=== PATIENT | male | born 1950 | race African-American/Black ===

== ENCOUNTER → 2016-03-08 | Outpatient (CLI) | payer OTHER, MEDICARE ==
[~2016-03-08] MED LIST: ACAR25TA OR; ALLO300T2 PO; ASPI81CH43; DIP005TP; ENAL20TA70; GLYB5TAB66; LINA5TAB OR; MULT-778 OR; SIMV-8; SIMV-8 OR; TRIA50TA2 OR; WARF5INJ
[2016-03-08 09:28] LABS: Urine RBC None Seen /hpf (0 - 3)
[2016-03-08 09:47] LABS: Basophils # (auto) 0.1 uL; Basophils % (auto) 1.2 % (0.0-2.0); Eosinophils # (auto) 0.2 uL; Eosinophils % (auto) 3.6 % (0.0-7.0); Hematocrit 45.8 % (41.0-53.0); Hemoglobin 14.7 g/dL (13.5-17.5); Lymphocytes # (auto) 1.4 uL; Mean Corpuscular Hemoglobin 27.1 pg (28.0-32.0); Mean Corpuscular Hgb Conc. 32.1 g/dL (32.0-36.0); Mean Corpuscular Volume 84.5 fL (80.0-100.0); Mean Platelet Volume 8.9 fL (7.4-10.4); Monocytes # (auto) 0.5 uL; Monocytes % (auto) 8.7 % (0.0-12.0); Neutrophils # (auto) 3.2 uL; Neutrophils % (auto) 60.5 % (37.0-80.0); Platelet Count (auto) 177 10^3/uL (140-450); White Blood Cell 5.4 10^3/uL (4.4-10.8)
[2016-03-08 09:59] LABS: Albumin 4.1 g/dL (3.4-5.0); BUN/Creatinine Ratio 17.4; Bilirubin, Total 1.5 mg/dL (0.2-1.0); Calcium 9.4 mg/dL (8.5-10.1)
[2016-03-08 10:00] LABS: Urine Bilirubin Negative (Negative); Urine Blood Negative /uL (Negative); Urine Color Yellow (Yellow); Urine Glucose Normal (Normal); Urine Ketone Negative (Negative); Urine Mucus FEW (None Seen); Urine Nitrite Negative (Negative); Urine Squamous Epithelial Cell FEW /hpf (<5); Urine Urobilinogen Normal (Negative); Urine pH 5.5 (5.0-8.0)
== END | disposition home or self-care (01) ==
LOC: LAB 08:26
PROVIDERS: ATTEND Internal Medicine
DX: N18.3 Chronic kidney disease, stage 3 (moderate) (principal); E78.4 Other hyperlipidemia; E11.21 Type 2 diabetes mellitus with diabetic nephropathy; I10 Essential (primary) hypertension
CPT/HCPCS: 36415; 80053; 80061; 81001; 82043; 83036; 85025; 85049; 86803

== ENCOUNTER → 2016-03-14 | Outpatient (CLI) | payer MEDICARE, OTHER | END | disposition home or self-care (01) | LOC: XYW 10:19 | PROVIDERS: ATTEND Internal Medicine | DX: I50.9 Heart failure, unspecified (principal); I48.2 Chronic atrial fibrillation; I34.2 Nonrheumatic mitral (valve) stenosis; I35.0 Nonrheumatic aortic (valve) stenosis; I07.1 Rheumatic tricuspid insufficiency; I31.3 Pericardial effusion (noninflammatory) | CPT/HCPCS: 93306 ==

== ENCOUNTER → 2016-06-15 | Outpatient (CLI) | payer MEDICARE, OTHER ==
[2016-06-15 12:46] LABS: Albumin 3.7 g/dL (3.4-5.0); BUN/Creatinine Ratio 15.8; Bilirubin, Total 1.6 mg/dL (0.2-1.0); Calcium 9.1 mg/dL (8.5-10.1); Potassium 4.6 mmol/L (3.5-5.1); Total Protein 7.7 g/dL (6.4-8.2); Uric Acid 3.8 mg/dL (3.5-7.2)
== END | disposition home or self-care (01) ==
LOC: LAB 10:07
DX: D64.9 Anemia, unspecified (principal); M10.00 Idiopathic gout, unspecified site; I10 Essential (primary) hypertension
CPT/HCPCS: 36415; 80053; 84550

== ENCOUNTER → 2016-07-04 | Outpatient (CLI) | payer MEDICARE, OTHER | END | disposition home or self-care (01) | LOC: XYW 08:22 | PROVIDERS: ATTEND Internal Medicine Cardiovascular Disease | DX: I08.1 Rheumatic disorders of both mitral and tricuspid valves (principal); I27.2 Other secondary pulmonary hypertension | CPT/HCPCS: 93306 ==

== ENCOUNTER → 2016-07-11 | Outpatient (CLI) | payer MEDICARE, OTHER ==
[2016-07-11 16:13] LABS: BUN/Creatinine Ratio 14.3; Calcium 8.4 mg/dL (8.5-10.1); Potassium 4.7 mmol/L (3.5-5.1)
[2016-07-11 16:39] LABS: B-Type Natriuretic Peptide 538.67 pg/mL (0-100); Temperature: 22.7 C (20.0-25.0)
== END | disposition home or self-care (01) ==
LOC: LAB 15:40
PROVIDERS: ATTEND Internal Medicine Cardiovascular Disease
DX: I42.0 Dilated cardiomyopathy (principal)
CPT/HCPCS: 36415; 80048; 83880

== ENCOUNTER 2016-09-02 14:32 | Inpatient (IN) | payer MEDICARE, OTHER ==
[~2016-09-02] VITALS: Ht 170.2 cm; Wt 104.8 kg
[~2016-09-02 14:32] MED LIST changes: -ACAR25TA OR; +ACAR50TA9 PO; -ALLO300T2 PO; +ASPI-231 PO; -ASPI81CH43; +CARV12.544 PO; +CIPR500T20 PO; +COLC1TAB3 PO; -DIP005TP; -ENAL20TA70; +ENAL20TA70 PO; +FEBU80TA PO; -GLYB5TAB66; +GLYB5TAB8 PO; +HYDR-4416 PO; -LINA5TAB OR; +LINA5TAB PO; -MULT-778 OR; +MULTLIQ36 PO; +PANT40T PO; -SIMV-8; -SIMV-8 OR; +SPIR25TA89 PO; -TRIA50TA2 OR; -WARF5INJ; +WARF5TAB71 PO; +[UNRECOGNIZED DRUG - CODE] PO
[2016-09-02 15:47] LABS: Basophils # (auto) 0 uL; Basophils % (auto) 0.3 % (0.0-2.0); CONDITION Y; Eosinophils # (auto) 0.1 uL; Eosinophils % (auto) 0.6 % (0.0-7.0); Hematocrit 39.2 % (41.0-53.0); Hemoglobin 13.1 g/dL (13.5-17.5); Lymphocytes # (auto) 0.8 uL; Lymphocytes % (auto) 8.5 % (10.0-50.0); Mean Corpuscular Hemoglobin 28.5 pg (28.0-32.0); Mean Corpuscular Hgb Conc. 33.3 g/dL (32.0-36.0); Mean Corpuscular Volume 85.4 fL (80.0-100.0); Mean Platelet Volume 9.3 fL (7.4-10.4); Monocytes # (auto) 0.5 uL; Monocytes % (auto) 4.8 % (0.0-12.0); Neutrophils # (auto) 8.5 uL; Neutrophils % (auto) 85.8 % (37.0-80.0); Platelet Count (auto) 254 10^3/uL (140-450); Red Cell Distribution Width 14.1 % (11.6-16.0); White Blood Cell 9.9 10^3/uL (4.4-10.8)
[2016-09-02 16:12] LABS: Albumin 3.5 g/dL (3.4-5.0); BUN/Creatinine Ratio 15.5; Bilirubin, Total 1.3 mg/dL (0.2-1.0); Calcium 8.9 mg/dL (8.5-10.1); Potassium 5.4 mmol/L (3.5-5.1); Total Protein 7.6 g/dL (6.4-8.2)
[2016-09-02 17:09] LABS: Urine RBC None Seen /hpf (0 - 3)
[2016-09-02] MEDS ORDERED: SODIUM CHLORIDE 0.9% 1,000 ML IVB ONE (17:10)
[2016-09-02 17:14] LABS: Urine Bilirubin Negative (Negative); Urine Blood Negative /uL (Negative); Urine Color Yellow (Yellow); Urine Glucose 3+ mg/dL (Normal); Urine Ketone TRACE (Negative); Urine Nitrite Negative (Negative); Urine Urobilinogen Normal (Negative); Urine pH 5.5 (5.0-8.0)
[2016-09-02] MEDS ORDERED: ONDANSETRON HCL 4 MG/2 ML VIAL IV ONE (17:15)
[2016-09-02 18:07] LABS: Magnesium 1.3 mg/dL (1.6-2.6)
[2016-09-02 18:14] LABS: INR 3.58 (0.9-1.15); Partial Thromboplastin Time 52.3 sec (22.64-33.71)
[2016-09-02 18:22] LABS: Prothrombin Time 39.5 sec (9.37-12.3)
[2016-09-02] MEDS: MAGNESIUM SULFATE 1GM/100ML 100 ML IV SCH ×2 (19:12→21:55)
[2016-09-02] MEDS ORDERED: ACETAMINOPHEN 325 MG TAB PO PRN (23:15)
[2016-09-02] MEDS ORDERED: DOCUSATE SOD 100 MG CAP PO ONE (23:15)
[2016-09-02] MEDS ORDERED: DEXTROSE (50%) 50ML SYRG IV PRN (23:15)
[2016-09-02] MEDS ORDERED: HYDROcodone-ACET 5/325MG TAB PO PRN (23:15)
[2016-09-02] MEDS ORDERED: ONDANSETRON HCL 4 MG/2 ML VIAL IV PRN (23:15)
[2016-09-02] MEDS ORDERED: TEMAZEPAM 15 MG CAP PO PRN (23:15)
[2016-09-02] MEDS ORDERED: PANTOPRAZOLE SODIUM 40 MG/10 ML VIAL IV ONE (23:15)
[2016-09-02] MEDS ORDERED: MORPHINE SULF INJ 2 MG/ML SYRINGE 1ML IV PRN (23:15)
[2016-09-02] MEDS ORDERED: SIMETHICONE 80 MG CHEWABLE TABLET PO ONE (23:15)
[2016-09-02] MEDS ORDERED: SIMETHICONE 80 MG CHEWABLE TABLET PO PRN (23:15)
[2016-09-02] MEDS: ACCU-CHEK COMFORT CURVE STRIP VI SCH (23:49)
[2016-09-02] MEDS: InsuLIN REG 1unit/0.01ml Soln (100units/ml) SC SCH (23:50)
[2016-09-03] VITALS (8 sets, daily range): BP systolic 114–166; BP diastolic 67–92
[2016-09-03] MEDS ORDERED: DIGO0.2570 PO (00:40)
[2016-09-03] MEDS ORDERED: CARVEDILOL 12.5 MG TAB PO ONE (03:15)
[2016-09-03] MEDS: SPIRONOLACTONE 25 MG TAB PO SCH ×2 (06:14→18:05)
[2016-09-03] MEDS: ACCU-CHEK COMFORT CURVE STRIP VI SCH ×3 (06:14→18:06)
[2016-09-03] MEDS: InsuLIN REG 1unit/0.01ml Soln (100units/ml) SC SCH ×3 (06:15→18:06)
[2016-09-03 06:29] LABS: Basophils # (auto) 0 uL; Basophils % (auto) 0.1 % (0.0-2.0); CONDITION Y; Eosinophils # (auto) 0.1 uL; Eosinophils % (auto) 0.7 % (0.0-7.0); Hematocrit 39.9 % (41.0-53.0); Hemoglobin 13.2 g/dL (13.5-17.5); Lymphocytes # (auto) 1.1 uL; Lymphocytes % (auto) 9.3 % (10.0-50.0); Mean Corpuscular Hemoglobin 28.8 pg (28.0-32.0); Mean Corpuscular Hgb Conc. 33.1 g/dL (32.0-36.0); Mean Corpuscular Volume 86.9 fL (80.0-100.0); Monocytes # (auto) 0.8 uL; Monocytes % (auto) 7.2 % (0.0-12.0); Neutrophils # (auto) 9.8 uL; Neutrophils % (auto) 82.7 % (37.0-80.0); Platelet Count (auto) 226 10^3/uL (140-450); Red Cell Distribution Width 14.5 % (11.6-16.0); White Blood Cell 11.8 10^3/uL (4.4-10.8)
[2016-09-03 06:54] LABS: Albumin 3.1 g/dL (3.4-5.0); BUN/Creatinine Ratio 13.6; Bilirubin, Total 1.2 mg/dL (0.2-1.0); Calcium 8.1 mg/dL (8.5-10.1); Potassium 5.4 mmol/L (3.5-5.1); Total Protein 7.2 g/dL (6.4-8.2)
[2016-09-03] MEDS ORDERED: glyBURIDE 5 MG TAB PO SCH (07:00)
[2016-09-03 08:04] LABS: Partial Thromboplastin Time 53.2 sec (22.64-33.71)
[2016-09-03 08:05] LABS: Prothrombin Time 51.7 sec (9.37-12.3)
[2016-09-03 08:08] LABS: INR 4.67 (0.9-1.15)
[2016-09-03] MEDS: DIGOXIN 0.25 MG TAB PO SCH (09:39)
[2016-09-03] MEDS: DOCUSATE SOD 100 MG CAP PO SCH ×2 (09:39→22:05)
[2016-09-03] MEDS: PANTOPRAZOLE SODIUM 40 MG/10 ML VIAL IV SCH (09:39)
[2016-09-03] MEDS: CARVEDILOL 12.5 MG TAB PO SCH ×2 (09:40→22:05)
[2016-09-03] MEDS: ENALAPRIL MALEATE 10 MG TAB PO SCH (09:41)
[2016-09-03] MEDS: SUCRALFATE 1 GM/10 ML ORAL SUSP PO SCH ×2 (18:04→22:04)
[2016-09-03] MEDS: SOD CHL 0.45% 1,000 ML IV SCH (18:05)
[2016-09-04 05:00] VITALS: BP 136/73
[2016-09-04] MEDS: SPIRONOLACTONE 25 MG TAB PO SCH ×2 (05:45→18:17)
[2016-09-04 06:10] LABS: Partial Thromboplastin Time 55.9 sec (22.64-33.71)
[2016-09-04 06:13] LABS: INR 4.96 (0.9-1.15)
[2016-09-04] MEDS: ACCU-CHEK COMFORT CURVE STRIP VI SCH ×4 (06:13→18:17)
[2016-09-04] MEDS: InsuLIN REG 1unit/0.01ml Soln (100units/ml) SC SCH ×4 (06:16→18:18)
[2016-09-04] MEDS: SOD CHL 0.45% 1,000 ML IV SCH ×2 (06:37→20:30)
[2016-09-04] MEDS: SUCRALFATE 1 GM/10 ML ORAL SUSP PO SCH ×4 (06:37→22:12)
[2016-09-04 08:00] VITALS: BP 135/70
[2016-09-04 09:11] LABS: Hepatitis B Surface Antibody Negative
[2016-09-04] MEDS: DIGOXIN 0.25 MG TAB PO SCH (09:37)
[2016-09-04] MEDS: PANTOPRAZOLE SODIUM 40 MG/10 ML VIAL IV SCH (09:37)
[2016-09-04] MEDS: CARVEDILOL 12.5 MG TAB PO SCH ×2 (09:38→22:13)
[2016-09-04] MEDS: ENALAPRIL MALEATE 10 MG TAB PO SCH (09:39)
[2016-09-04] MEDS: DOCUSATE SOD 100 MG CAP PO SCH ×2 (11:24→22:12)
[2016-09-04 12:00] VITALS: BP 112/65
[2016-09-04 17:13] VITALS: BP 127/63
[2016-09-04 22:08] VITALS: BP 124/66
[2016-09-05] MEDS: ACCU-CHEK COMFORT CURVE STRIP VI SCH ×4 (00:03→18:06)
[2016-09-05] MEDS: InsuLIN REG 1unit/0.01ml Soln (100units/ml) SC SCH ×4 (00:04→18:07)
[2016-09-05 05:18] VITALS: BP 125/67
[2016-09-05] MEDS: SPIRONOLACTONE 25 MG TAB PO SCH ×2 (05:32→18:06)
[2016-09-05 05:53] LABS: Partial Thromboplastin Time 42.7 sec (22.64-33.71)
[2016-09-05 05:59] LABS: Prothrombin Time 46.4 sec (9.37-12.3)
[2016-09-05 06:01] LABS: INR 4.2 (0.9-1.15)
[2016-09-05] MEDS: SUCRALFATE 1 GM/10 ML ORAL SUSP PO SCH ×4 (06:36→22:13)
[2016-09-05 09:04] VITALS: BP 136/63
[2016-09-05] MEDS: PANTOPRAZOLE SODIUM 40 MG/10 ML VIAL IV SCH (09:36)
[2016-09-05] MEDS: DOCUSATE SOD 100 MG CAP PO SCH ×2 (09:36→22:13)
[2016-09-05] MEDS: DIGOXIN 0.25 MG TAB PO SCH (09:37)
[2016-09-05] MEDS: CARVEDILOL 12.5 MG TAB PO SCH ×2 (09:37→22:13)
[2016-09-05] MEDS: ENALAPRIL MALEATE 10 MG TAB PO SCH (09:38)
[2016-09-05] MEDS: SOD CHL 0.45% 1,000 ML IV SCH (09:43)
[2016-09-05 13:00] VITALS: BP 115/60
[2016-09-05 17:00] VITALS: BP 120/70
[2016-09-05 19:35] LABS: B-Type Natriuretic Peptide 221.18 pg/mL (0-100)
[2016-09-05 20:00] LABS: Temperature: 23.5 C (20.0-25.0)
[2016-09-05 22:00] VITALS: BP 120/62
[2016-09-06] MEDS: ACCU-CHEK COMFORT CURVE STRIP VI SCH ×2 (00:04→06:15)
[2016-09-06] MEDS: InsuLIN REG 1unit/0.01ml Soln (100units/ml) SC SCH ×2 (00:16→06:00)
[2016-09-06] MEDS: SOD CHL 0.45% 1,000 ML IV SCH (04:32)
[2016-09-06 05:00] VITALS: BP 121/63
[2016-09-06] MEDS: SPIRONOLACTONE 25 MG TAB PO SCH (06:15)
[2016-09-06] MEDS: SUCRALFATE 1 GM/10 ML ORAL SUSP PO SCH (06:16)
[2016-09-06 06:42] LABS: INR 3.11 (0.9-1.15); Partial Thromboplastin Time 52.5 sec (22.64-33.71)
[2016-09-06 06:43] LABS: Prothrombin Time 34.3 sec (9.37-12.3)
[2016-09-06 09:35] VITALS: BP 122/74
[2016-09-06] MEDS: DOCUSATE SOD 100 MG CAP PO SCH (10:00)
[2016-09-06] MEDS: PANTOPRAZOLE SODIUM 40 MG/10 ML VIAL IV SCH (10:06)
[2016-09-06] MEDS: CARVEDILOL 12.5 MG TAB PO SCH (10:07)
[2016-09-06] MEDS: DIGOXIN 0.25 MG TAB PO SCH (10:07)
[2016-09-06] MEDS: ENALAPRIL MALEATE 10 MG TAB PO SCH (10:07)
[2016-09-06 11:30] VITALS: BP 122/74
[2016-09-06 12:30] VITALS: BP 135/70
== END 2016-09-06 12:50 | disposition home or self-care (01) | DRG 445 ==
LOC: ER 14:39 → OVERFLOW 14:40 → CENTRAL 23:33
PROVIDERS: ADMIT Nurse Practitioner; ATTEND Internal Medicine Pulmonary Disease
DX: K80.10 Calculus of gallbladder with chronic cholecystitis without obstruction (principal); I13.0 Hypertensive heart and chronic kidney disease with heart failure and stage 1 through stage 4 chronic kidney disease, or unspecified chronic kidney disease; E87.1 Hypo-osmolality and hyponatremia; I42.9 Cardiomyopathy, unspecified; I50.22 Chronic systolic (congestive) heart failure; E44.1 Mild protein-calorie malnutrition; K29.00 Acute gastritis without bleeding; E66.9 Obesity, unspecified; E11.22 Type 2 diabetes mellitus with diabetic chronic kidney disease; N18.3 Chronic kidney disease, stage 3 (moderate); E11.65 Type 2 diabetes mellitus with hyperglycemia; I48.91 Unspecified atrial fibrillation; E78.5 Hyperlipidemia, unspecified; E83.42 Hypomagnesemia; E87.5 Hyperkalemia; I25.10 Atherosclerotic heart disease of native coronary artery without angina pectoris; I70.0 Atherosclerosis of aorta; D17.5 Benign lipomatous neoplasm of intra-abdominal organs; T45.515A Adverse effect of anticoagulants, initial encounter; Z95.0 Presence of cardiac pacemaker; Z82.49 Family history of ischemic heart disease and other diseases of the circulatory system; Z83.3 Family history of diabetes mellitus; Z68.36 Body mass index [BMI] 36.0-36.9, adult; Y92.89 Other specified places as the place of occurrence of the external cause; Z91.012 Allergy to eggs
CPT/HCPCS: 36415; 71010; 74176; 76705; 78226; 80053; 80162; 81001; 82150; 82962; 83036; 83690; 83735; 83880; 84132; 84484; 85025; 85610; 85730; 86704; 86706; 86708; 86803; 87081; 87340; 93005; 94761; 96361; 96374; C9113; J1815; J2405

== ENCOUNTER → 2016-10-18 | Outpatient (CLI) | payer MEDICARE, OTHER ==
[~2016-10-18] MED LIST changes: -CIPR500T20 PO; -COLC1TAB3 PO; -HYDR-4416 PO; -SPIR25TA89 PO; -[UNRECOGNIZED DRUG - CODE] PO
[2016-10-18 12:52] LABS: Albumin 3.3 g/dL (3.4-5.0); Calcium 8.6 mg/dL (8.5-10.1); Potassium 4.2 mmol/L (3.5-5.1)
[2016-10-18 12:55] LABS: BUN/Creatinine Ratio 11.4
[2016-10-18 13:05] LABS: Basophils # (auto) 0 uL; Basophils % (auto) 0.5 % (0.0-2.0); CONDITION Y; Eosinophils # (auto) 0.1 uL; Eosinophils % (auto) 1.6 % (0.0-7.0); Hematocrit 34.5 % (41.0-53.0); Hemoglobin 11.5 g/dL (13.5-17.5); Lymphocytes # (auto) 0.9 uL; Mean Corpuscular Hemoglobin 28.8 pg (28.0-32.0); Mean Corpuscular Hgb Conc. 33.4 g/dL (32.0-36.0); Mean Corpuscular Volume 86.2 fL (80.0-100.0); Mean Platelet Volume 9.8 fL (7.4-10.4); Monocytes # (auto) 0.5 uL; Monocytes % (auto) 8.3 % (0.0-12.0); Neutrophils % (auto) 72.6 % (37.0-80.0); Platelet Count (auto) 212 10^3/uL (140-450); Red Cell Distribution Width 15.4 % (11.6-16.0); White Blood Cell 5.5 10^3/uL (4.4-10.8)
[2016-10-18 13:06] LABS: Total Protein 7.1 g/dL (6.4-8.2)
== END | disposition home or self-care (01) ==
LOC: LAB 11:39
PROVIDERS: ATTEND Internal Medicine
DX: K57.93 Diverticulitis of intestine, part unspecified, without perforation or abscess with bleeding (principal); I10 Essential (primary) hypertension; E11.9 Type 2 diabetes mellitus without complications
CPT/HCPCS: 36415; 80053; 85025

== ENCOUNTER → 2016-10-30 | Outpatient (CLI) | payer MEDICARE, OTHER ==
[2016-10-30 08:58] LABS: Basophils # (auto) 0 uL; CONDITION Y; Eosinophils # (auto) 0 uL; Eosinophils % (auto) 0.1 % (0.0-7.0); Hematocrit 37.7 % (41.0-53.0); Hemoglobin 12.7 g/dL (13.5-17.5); Lymphocytes # (auto) 0.7 uL; Lymphocytes % (auto) 6.1 % (10.0-50.0); Mean Corpuscular Hemoglobin 28.9 pg (28.0-32.0); Mean Corpuscular Hgb Conc. 33.7 g/dL (32.0-36.0); Mean Corpuscular Volume 85.9 fL (80.0-100.0); Mean Platelet Volume 9.4 fL (6.9-10.8); Monocytes # (auto) 0.1 uL; Monocytes % (auto) 0.6 % (0.0-12.0); Neutrophils # (auto) 10.3 uL; Neutrophils % (auto) 93.2 % (37.0-80.0); Platelet Count (auto) 341 10^3/uL (140-450); Red Cell Distribution Width 15.4 % (11.8-14.3); White Blood Cell 11.1 10^3/uL (4.4-10.8)
[2016-10-30 09:23] LABS: Calcium 8.9 mg/dL (8.5-10.1); Potassium 4.5 mmol/L (3.5-5.1)
== END | disposition home or self-care (01) ==
LOC: LAB 08:28
PROVIDERS: ATTEND Internal Medicine
DX: I10 Essential (primary) hypertension (principal); E11.9 Type 2 diabetes mellitus without complications
CPT/HCPCS: 36415; 80048; 85025

== ENCOUNTER → 2016-11-21 | Outpatient (CLI) | payer MEDICARE, OTHER ==
[2016-11-21 10:39] LABS: BUN/Creatinine Ratio 13.8; Calcium 8.8 mg/dL (8.5-10.1); Potassium 3.8 mmol/L (3.5-5.1)
[2016-11-21 10:52] LABS: Temperature: 21.9 C (20.0-25.0)
== END | disposition home or self-care (01) ==
LOC: LAB 09:49
PROVIDERS: ATTEND Internal Medicine Cardiovascular Disease
DX: I42.0 Dilated cardiomyopathy (principal)
CPT/HCPCS: 36415; 80048; 83880

== ENCOUNTER → 2016-11-21 | Outpatient (CLI) | payer MEDICARE, OTHER | END | disposition home or self-care (01) | LOC: XYW 08:43 | PROVIDERS: ATTEND Internal Medicine Cardiovascular Disease | DX: I42.0 Dilated cardiomyopathy (principal) | CPT/HCPCS: 93306 ==

== ENCOUNTER → 2017-10-04 | Outpatient (CLI) | payer MEDICARE, OTHER ==
[2017-10-04 09:25] LABS: Basophils # (auto) 0.1 uL; Basophils % (auto) 1.4 % (0.0-2.0); Eosinophils # (auto) 0.2 uL; Eosinophils % (auto) 4.1 % (0.0-7.0); Hematocrit 43.3 % (41.0-53.0); Hemoglobin 14.2 g/dL (13.5-17.5); Lymphocytes # (auto) 1.4 uL; Lymphocytes % (auto) 31.2 % (10.0-50.0); Mean Corpuscular Hemoglobin 28.6 pg (28.0-32.0); Mean Corpuscular Hgb Conc. 32.9 g/dL (32.0-36.0); Mean Corpuscular Volume 86.8 fL (80.0-100.0); Monocytes # (auto) 0.4 uL; Monocytes % (auto) 9.5 % (0.0-12.0); Neutrophils # (auto) 2.4 uL; Neutrophils % (auto) 53.8 % (37.0-80.0); Nucleated Red Blood Cells % 0.6 %; Platelet Count (auto) 204 10^3/uL (140-450); Red Blood Cells 4.99 10^6/uL (4.5-5.90); Red Cell Distribution Width 15.8 % (11.8-14.3); White Blood Cell 4.4 10^3/uL (4.4-10.8)
[2017-10-04 09:26] LABS: Urine Bacteria NONE SEEN /hpf (None Seen); Urine Blood Negative /uL (Negative); Urine Specific Gravity 1.005 (1.001-1.035); Urine WBC <1 /hpf (0 - 3)
[2017-10-04 09:42] LABS: INR 1.01 (0.9-1.15); Partial Thromboplastin Time 32.8 sec (23.78-33.04); Prothrombin Time 10.8 sec (9.27-12.13)
[2017-10-04 09:50] LABS: Albumin 3.6 g/dL (3.4-5.0); Calcium 8.6 mg/dL (8.5-10.1); Potassium 4.7 mmol/L (3.5-5.1)
[2017-10-04 09:53] LABS: BUN/Creatinine Ratio 9.6; Bilirubin, Total 1.3 mg/dL (0.2-1.0); Total Protein 7.6 g/dL (6.4-8.2)
[2017-10-04 10:01] LABS: Prolactin 10.36 ng/mL (2.8-29.2)
[2017-10-04 10:02] LABS: Free T4 (Free Thyroxine) 1.23 ng/dL (0.89-1.76)
[2017-10-04 10:03] LABS: Prostate Specific Antigen 0.99 ng/mL (0.0-4.0)
[2017-10-04 14:04] LABS: Uric Acid 8.1 mg/dL (3.5-7.2)
== END | disposition home or self-care (01) ==
LOC: LAB 08:23
PROVIDERS: ATTEND Internal Medicine
DX: I11.0 Hypertensive heart disease with heart failure (principal); I50.9 Heart failure, unspecified; E11.9 Type 2 diabetes mellitus without complications; N52.9 Male erectile dysfunction, unspecified; M10.9 Gout, unspecified; N40.0 Benign prostatic hyperplasia without lower urinary tract symptoms
CPT/HCPCS: 36415; 80053; 80061; 81001; 82043; 82607; 83036; 84146; 84153; 84403; 84439; 84443; 84550; 85025; 85610; 85652; 85730

== ENCOUNTER → 2018-03-04 | Outpatient (CLI) | payer MEDICARE, OTHER ==
[2018-03-04 13:20] LABS: Albumin 3.9 g/dL (3.4-5.0); Anion Gap 3 (5-15); Blood Urea Nitrogen 15 mg/dL (7-18); Calcium 8.8 mg/dL (8.5-10.1); Carbon Dioxide 31 mmol/L (21-32); Chloride 105 mmol/L (98-107); Glucose 104 mg/dL (74-106); Potassium 4.9 mmol/L (3.5-5.1); Sodium 139 mmol/L (136-145)
[2018-03-04 13:27] LABS: Alanine Aminotransferase 25 U/L (16-61); Alkaline Phosphatase 78 U/L (45-117); Aspartate Aminotransferase 21 U/L (15-37); BUN/Creatinine Ratio 10.6; Bilirubin, Total 1.8 mg/dL (0.2-1.0); GFR Non-African American 53 mL/min; Total Protein 7.7 g/dL (6.4-8.2); Uric Acid 8.2 mg/dL (3.5-7.2)
[2018-03-04 13:46] LABS: GFR African American > 60 mL/min
== END | disposition home or self-care (01) ==
LOC: LAB 10:32
PROVIDERS: ATTEND Internal Medicine
DX: I10 Essential (primary) hypertension (principal); E11.21 Type 2 diabetes mellitus with diabetic nephropathy; I48.1 Persistent atrial fibrillation
CPT/HCPCS: 36415; 80053; 80162; 83036; 84550

== ENCOUNTER → 2018-03-28 | Outpatient (CLI) | payer MEDICARE, OTHER ==
[2018-03-28 09:01] LABS: Basophils # (auto) 0 uL; Eosinophils # (auto) 0.1 uL; Hematocrit 44.8 % (41.0-53.0); Hemoglobin 14.7 g/dL (13.5-17.5); Lymphocytes # (auto) 1.1 uL; Lymphocytes % (auto) 23.2 % (10.0-50.0); Mean Corpuscular Hemoglobin 28.3 pg (28.0-32.0); Mean Corpuscular Hgb Conc. 32.8 g/dL (32.0-36.0); Mean Corpuscular Volume 86.5 fL (80.0-100.0); Monocytes # (auto) 0.4 uL; Monocytes % (auto) 8.3 % (0.0-12.0); Neutrophils % (auto) 65.5 % (37.0-80.0); Nucleated Red Blood Cells % 0.2 %; Platelet Count (auto) 170 10^3/uL (140-450); Red Blood Cells 5.18 10^6/uL (4.5-5.90); Red Cell Distribution Width 15.8 % (11.8-14.3); White Blood Cell 4.6 10^3/uL (4.4-10.8)
[2018-03-28 09:28] LABS: Albumin 3.6 g/dL (3.4-5.0); Calcium 8.9 mg/dL (8.5-10.1); Potassium 4.8 mmol/L (3.5-5.1)
[2018-03-28 09:33] LABS: Bilirubin, Total 1.6 mg/dL (0.2-1.0); Total Protein 7.2 g/dL (6.4-8.2)
== END | disposition home or self-care (01) ==
LOC: LAB 08:30
PROVIDERS: ATTEND Internal Medicine Cardiovascular Disease
DX: I11.0 Hypertensive heart disease with heart failure (principal); I50.9 Heart failure, unspecified; E78.00 Pure hypercholesterolemia, unspecified; N28.9 Disorder of kidney and ureter, unspecified; K21.9 Gastro-esophageal reflux disease without esophagitis; I48.2 Chronic atrial fibrillation; E11.9 Type 2 diabetes mellitus without complications; E79.0 Hyperuricemia without signs of inflammatory arthritis and tophaceous disease; K64.9 Unspecified hemorrhoids
CPT/HCPCS: 36415; 80053; 80061; 83880; 84443; 85025

== ENCOUNTER → 2018-06-27 | Outpatient (CLI) | payer MEDICARE, OTHER ==
[2018-06-27 13:35] LABS: BUN/Creatinine Ratio 12.9; Calcium 9.1 mg/dL (8.5-10.1); Potassium 4.5 mmol/L (3.5-5.1)
[2018-06-27 13:38] LABS: Bilirubin, Total 1.6 mg/dL (0.2-1.0); Total Protein 7.7 g/dL (6.4-8.2)
== END | disposition home or self-care (01) ==
LOC: LAB 12:29
PROVIDERS: ATTEND Internal Medicine
DX: K76.0 Fatty (change of) liver, not elsewhere classified (principal); I11.0 Hypertensive heart disease with heart failure; I50.9 Heart failure, unspecified; E11.9 Type 2 diabetes mellitus without complications
CPT/HCPCS: 36415; 80053; 83036

== ENCOUNTER → 2018-08-22 | Outpatient (CLI) | payer MEDICARE, OTHER ==
[2018-08-22 12:16] LABS: Anion Gap 8 (5-15); Blood Urea Nitrogen 11 mg/dL (7-18); Calcium 8.3 mg/dL (8.5-10.1); Carbon Dioxide 28 mmol/L (21-32); Chloride 109 mmol/L (98-107); Glucose 67 mg/dL (74-106); Potassium 4.3 mmol/L (3.5-5.1); Sodium 145 mmol/L (136-145)
[2018-08-22 12:18] LABS: BUN/Creatinine Ratio 8.3; GFR African American 70 mL/min; GFR Non-African American 58 mL/min
== END | disposition home or self-care (01) ==
LOC: LAB 11:35
PROVIDERS: ATTEND Internal Medicine Cardiovascular Disease
DX: E11.9 Type 2 diabetes mellitus without complications (principal)
CPT/HCPCS: 36415; 80048

== ENCOUNTER → 2018-08-27 | Outpatient (CLI) | payer MEDICARE, OTHER ==
[2018-08-27 09:51] LABS: Basophils # (auto) 0.1 uL; Basophils % (auto) 1.5 % (0.0-2.0); Eosinophils # (auto) 0.1 uL; Eosinophils % (auto) 3.3 % (0.0-7.0); Hemoglobin 13.4 g/dL (13.5-17.5); Lymphocytes # (auto) 1.3 uL; Mean Corpuscular Hemoglobin 28.7 pg (28.0-32.0); Mean Corpuscular Hgb Conc. 33.4 g/dL (32.0-36.0); Mean Corpuscular Volume 85.9 fL (80.0-100.0); Monocytes # (auto) 0.4 uL; Monocytes % (auto) 10.4 % (0.0-12.0); Neutrophils # (auto) 2.3 uL; Neutrophils % (auto) 54.8 % (37.0-80.0); Nucleated Red Blood Cells % 0.2 %; Platelet Count (auto) 155 10^3/uL (140-450); Red Blood Cells 4.65 10^6/uL (4.5-5.90); Red Cell Distribution Width 15.9 % (11.8-14.3); White Blood Cell 4.2 10^3/uL (4.4-10.8)
[2018-08-27 09:58] LABS: Urine Bacteria NONE SEEN /hpf (None Seen); Urine Blood Negative /uL (Negative); Urine Specific Gravity 1.006 (1.001-1.035); Urine WBC <1 /hpf (0 - 3)
[2018-08-27 10:10] LABS: Albumin 3.5 g/dL (3.4-5.0); Calcium 8.2 mg/dL (8.5-10.1); Potassium 4.2 mmol/L (3.5-5.1)
[2018-08-27 10:15] LABS: BUN/Creatinine Ratio 7.9; Bilirubin, Total 1.4 mg/dL (0.2-1.0)
[2018-08-27 10:28] LABS: INR 1.08 (0.9-1.15); Partial Thromboplastin Time 30.5 sec (23.64-32.05)
== END | disposition home or self-care (01) ==
LOC: LAB 09:27
PROVIDERS: ATTEND Internal Medicine Cardiovascular Disease
DX: Z01.818 Encounter for other preprocedural examination (principal); N39.0 Urinary tract infection, site not specified; I42.9 Cardiomyopathy, unspecified; I27.21 Secondary pulmonary arterial hypertension; K64.9 Unspecified hemorrhoids; E79.0 Hyperuricemia without signs of inflammatory arthritis and tophaceous disease; E11.9 Type 2 diabetes mellitus without complications; I48.2 Chronic atrial fibrillation; K21.9 Gastro-esophageal reflux disease without esophagitis; N28.9 Disorder of kidney and ureter, unspecified; E78.00 Pure hypercholesterolemia, unspecified; I10 Essential (primary) hypertension; R94.39 Abnormal result of other cardiovascular function study; Z95.0 Presence of cardiac pacemaker
CPT/HCPCS: 36415; 80053; 81001; 85025; 85610; 85730; 87086

== ENCOUNTER → 2018-09-06 | Outpatient (CLI) | payer MEDICARE, OTHER ==
[~2018-09-06] MED LIST changes: +ENAL20TA PO; -ENAL20TA70 PO
[2018-09-06 13:19] LABS: Potassium 4.1 mmol/L (3.5-5.1)
[2018-09-06 13:27] LABS: BUN/Creatinine Ratio 9.2; Calcium 8.5 mg/dL (8.5-10.1)
== END | disposition home or self-care (01) ==
LOC: LAB 11:56
PROVIDERS: ATTEND Internal Medicine Cardiovascular Disease
DX: K21.9 Gastro-esophageal reflux disease without esophagitis (principal); I48.2 Chronic atrial fibrillation; I10 Essential (primary) hypertension; N28.9 Disorder of kidney and ureter, unspecified; E11.9 Type 2 diabetes mellitus without complications; E79.0 Hyperuricemia without signs of inflammatory arthritis and tophaceous disease; K64.9 Unspecified hemorrhoids; I42.9 Cardiomyopathy, unspecified; R94.39 Abnormal result of other cardiovascular function study
CPT/HCPCS: 36415; 80048

== ENCOUNTER → 2018-11-11 | Outpatient (CLI) | payer MEDICARE, OTHER ==
[2018-11-11 12:03] LABS: Basophils # (auto) 0.1 uL; Basophils % (auto) 1.8 % (0.0-2.0); Eosinophils # (auto) 0.1 uL; Eosinophils % (auto) 2.5 % (0.0-7.0); Hematocrit 42.8 % (41.0-53.0); Hemoglobin 14.2 g/dL (13.5-17.5); Lymphocytes # (auto) 1.1 uL; Lymphocytes % (auto) 23.4 % (10.0-50.0); Mean Corpuscular Hemoglobin 27.7 pg (28.0-32.0); Mean Corpuscular Hgb Conc. 33.1 g/dL (32.0-36.0); Mean Corpuscular Volume 83.9 fL (80.0-100.0); Monocytes # (auto) 0.4 uL; Monocytes % (auto) 9.1 % (0.0-12.0); Neutrophils # (auto) 2.9 uL; Neutrophils % (auto) 63.2 % (37.0-80.0); Nucleated Red Blood Cells % 0.1 %; Platelet Count (auto) 169 10^3/uL (140-450); Red Cell Distribution Width 16.5 % (11.8-14.3); White Blood Cell 4.6 10^3/uL (4.4-10.8)
[2018-11-11 12:37] LABS: Free T4 (Free Thyroxine) 1.04 ng/dL (0.89-1.76); Prostate Specific Antigen 0.91 ng/mL (0.0-4.0)
== END | disposition home or self-care (01) ==
LOC: LAB 11:28
PROVIDERS: ATTEND Internal Medicine
DX: E11.9 Type 2 diabetes mellitus without complications (principal); I10 Essential (primary) hypertension; N40.0 Benign prostatic hyperplasia without lower urinary tract symptoms
CPT/HCPCS: 36415; 82607; 83036; 83540; 84153; 84439; 84443; 85025

== ENCOUNTER → 2019-04-09 | Outpatient (CLI) | payer MEDICARE, OTHER ==
[~2019-04-09] MED LIST changes: +ACAR50TA PO; -ACAR50TA9 PO
[2019-04-09 11:55] LABS: Albumin 3.6 g/dL (3.4-5.0); Potassium 4.5 mmol/L (3.5-5.1)
[2019-04-09 12:02] LABS: BUN/Creatinine Ratio 9.4; Bilirubin, Total 1.5 mg/dL (0.2-1.0); Calcium 9.2 mg/dL (8.5-10.1); Total Protein 7.4 g/dL (6.4-8.2)
== END | disposition home or self-care (01) ==
LOC: LAB 10:49
PROVIDERS: ATTEND Internal Medicine
DX: M10.9 Gout, unspecified (principal); E11.9 Type 2 diabetes mellitus without complications; I10 Essential (primary) hypertension
CPT/HCPCS: 36415; 80053; 80061; 83036; 84443

== ENCOUNTER → 2019-09-10 | Outpatient (CLI) | payer MEDICARE, OTHER ==
[~2019-09-10] MED LIST changes: -ENAL20TA PO; +ENAL20TA8 PO
[2019-09-10 12:40] LABS: Basophils # (auto) 0.1 10 ^3/uL (0-0.2); Basophils % (auto) 1.3 % (0.0-2.0); Eosinophils # (auto) 0.1 10 ^3/uL (0-0.8); Hematocrit 38.7 % (41.0-53.0); Hemoglobin 12.6 g/dL (13.5-17.5); Lymphocytes # (auto) 1.1 10 ^3/uL (0.4-5.4); Lymphocytes % (auto) 24.8 % (10.0-50.0); Mean Corpuscular Hgb Conc. 32.5 g/dL (32.0-36.0); Mean Corpuscular Volume 86.2 fL (80.0-100.0); Monocytes # (auto) 0.4 10 ^3/uL (0-1.3); Monocytes % (auto) 8.7 % (0.0-12.0); Neutrophils # (auto) 2.9 10 ^3/uL (1.6-8.6); Neutrophils % (auto) 63.2 % (37.0-80.0); Nucleated Red Blood Cells % 0.1 %; Platelet Count (auto) 160 10^3/uL (140-450); Red Blood Cells 4.49 10^6/uL (4.5-5.90); Red Cell Distribution Width 15.7 % (11.8-14.3); White Blood Cell 4.6 10^3/uL (4.4-10.8)
[2019-09-10 12:53] LABS: Potassium 3.5 mmol/L (3.5-5.1)
[2019-09-10 13:01] LABS: Albumin 3.4 g/dL (3.4-5.0); BUN/Creatinine Ratio 10.2; Bilirubin, Total 1.8 mg/dL (0.2-1.0); Calcium 8.5 mg/dL (8.5-10.1); Uric Acid 7.8 mg/dL (3.5-7.2)
== END | disposition home or self-care (01) ==
LOC: LAB 11:58
PROVIDERS: ATTEND Internal Medicine
DX: E11.9 Type 2 diabetes mellitus without complications (principal)
CPT/HCPCS: 36415; 80053; 83036; 84550; 85025

== ENCOUNTER → 2019-09-19 | Outpatient (CLI) | payer MEDICARE, OTHER | END | disposition home or self-care (01) | LOC: LAB 09:03 | PROVIDERS: ATTEND Internal Medicine | DX: E11.9 Type 2 diabetes mellitus without complications (principal); D64.9 Anemia, unspecified | CPT/HCPCS: 82270 ==

== ENCOUNTER → 2019-12-17 | Outpatient (CLI) | payer MEDICARE, OTHER ==
[2019-12-17 11:52] LABS: Basophils # (auto) 0.1 10 ^3/uL (0-0.2); Basophils % (auto) 1.5 % (0.0-2.0); Eosinophils # (auto) 0.1 10 ^3/uL (0-0.8); Eosinophils % (auto) 2.5 % (0.0-7.0); Hematocrit 36.8 % (41.0-53.0); Hemoglobin 12.4 g/dL (13.5-17.5); Lymphocytes % (auto) 26.1 % (10.0-50.0); Mean Corpuscular Hemoglobin 28.7 pg (28.0-32.0); Mean Corpuscular Hgb Conc. 33.8 g/dL (32.0-36.0); Mean Corpuscular Volume 84.7 fL (80.0-100.0); Monocytes # (auto) 0.4 10 ^3/uL (0-1.3); Neutrophils # (auto) 2.4 10 ^3/uL (1.6-8.6); Neutrophils % (auto) 60.9 % (37.0-80.0); Platelet Count (auto) 146 10^3/uL (140-450); Red Blood Cells 4.34 10^6/uL (4.5-5.90); Red Cell Distribution Width 16.9 % (11.8-14.3); White Blood Cell 3.9 10^3/uL (4.4-10.8)
[2019-12-17 12:41] LABS: Potassium 3.2 mmol/L (3.5-5.1)
== END | disposition home or self-care (01) ==
LOC: LAB 11:27
PROVIDERS: ATTEND Internal Medicine
DX: E11.21 Type 2 diabetes mellitus with diabetic nephropathy (principal); D64.9 Anemia, unspecified
CPT/HCPCS: 36415; 82607; 83036; 83540; 83615; 84132; 85025

== ENCOUNTER → 2020-03-04 | Outpatient (CLI) | payer MEDICARE, OTHER ==
[2020-03-04 12:35] LABS: Basophils # (auto) 0 10 ^3/uL (0-0.2); Basophils % (auto) 1.3 % (0.0-2.0); Eosinophils # (auto) 0.1 10 ^3/uL (0-0.8); Hematocrit 37.8 % (41.0-53.0); Hemoglobin 12.6 g/dL (13.5-17.5); Lymphocytes % (auto) 26.2 % (10.0-50.0); Mean Corpuscular Hemoglobin 28.2 pg (28.0-32.0); Mean Corpuscular Hgb Conc. 33.2 g/dL (32.0-36.0); Mean Corpuscular Volume 84.9 fL (80.0-100.0); Monocytes # (auto) 0.4 10 ^3/uL (0-1.3); Monocytes % (auto) 9.4 % (0.0-12.0); Neutrophils # (auto) 2.3 10 ^3/uL (1.6-8.6); Neutrophils % (auto) 61.1 % (37.0-80.0); Nucleated Red Blood Cells % 0.1 %; Platelet Count (auto) 122 10^3/uL (140-450); Red Blood Cells 4.44 10^6/uL (4.5-5.90); Red Cell Distribution Width 16.1 % (11.8-14.3); White Blood Cell 3.8 10^3/uL (4.4-10.8)
[2020-03-04 12:40] LABS: Albumin 3.8 g/dL (3.4-5.0); Calcium 8.7 mg/dL (8.5-10.1); Potassium 3.8 mmol/L (3.5-5.1)
[2020-03-04 12:44] LABS: BUN/Creatinine Ratio 11.5; Bilirubin, Total 2.6 mg/dL (0.2-1.0); Total Protein 7.2 g/dL (6.4-8.2)
== END | disposition home or self-care (01) ==
LOC: LAB 12:05
PROVIDERS: ATTEND Internal Medicine
DX: I11.0 Hypertensive heart disease with heart failure (principal); I50.9 Heart failure, unspecified; E11.9 Type 2 diabetes mellitus without complications
CPT/HCPCS: 36415; 80053; 83880; 85025

== ENCOUNTER → 2020-03-11 | Outpatient (CLI) | payer MEDICARE, OTHER ==
[2020-03-11 13:38] LABS: BUN/Creatinine Ratio 9.7; Calcium 9.1 mg/dL (8.5-10.1); Potassium 3.9 mmol/L (3.5-5.1)
== END | disposition home or self-care (01) ==
LOC: LAB 13:09
PROVIDERS: ATTEND Internal Medicine
DX: I48.91 Unspecified atrial fibrillation (principal)
CPT/HCPCS: 36415; 80048

== ENCOUNTER → 2020-04-22 | Outpatient (CLI) | payer MEDICARE, OTHER ==
[2020-04-22 09:49] LABS: Urine WBC None Seen /hpf (0 - 3)
[2020-04-22 09:53] LABS: Urine Bacteria NONE SEEN /hpf (None Seen); Urine Blood Negative /uL (Negative); Urine Specific Gravity 1.011 (1.001-1.035)
[2020-04-22 10:16] LABS: Basophils # (auto) 0.1 10 ^3/uL (0-0.2); Basophils % (auto) 1.3 % (0.0-2.0); Eosinophils # (auto) 0.4 10 ^3/uL (0-0.8); Eosinophils % (auto) 9.1 % (0.0-7.0); Hematocrit 41.9 % (41.0-53.0); Hemoglobin 14.2 g/dL (13.5-17.5); Lymphocytes # (auto) 1.2 10 ^3/uL (0.4-5.4); Lymphocytes % (auto) 30.3 % (10.0-50.0); Mean Corpuscular Hemoglobin 28.3 pg (28.0-32.0); Mean Corpuscular Hgb Conc. 33.9 g/dL (32.0-36.0); Mean Corpuscular Volume 83.5 fL (80.0-100.0); Monocytes # (auto) 0.4 10 ^3/uL (0-1.3); Monocytes % (auto) 9.5 % (0.0-12.0); Neutrophils % (auto) 49.8 % (37.0-80.0); Nucleated Red Blood Cells % 0.1 %; Platelet Count (auto) 156 10^3/uL (140-450); Red Blood Cells 5.02 10^6/uL (4.5-5.90); Red Cell Distribution Width 16.7 % (11.8-14.3)
[2020-04-22 10:36] LABS: Potassium 4.3 mmol/L (3.5-5.1)
[2020-04-22 10:47] LABS: Albumin 3.6 g/dL (3.4-5.0); BUN/Creatinine Ratio 16.7; Bilirubin, Total 1.7 mg/dL (0.2-1.0); Calcium 9.4 mg/dL (8.5-10.1); Total Protein 7.7 g/dL (6.4-8.2)
[2020-04-22 10:56] LABS: Free T4 (Free Thyroxine) 1.1 ng/dL (0.89-1.76); Hepatitis B Surface Antibody Negative
[2020-04-22 10:57] LABS: Prostate Specific Antigen 1.09 ng/mL (0.0-4.0)
[2020-04-22 14:24] LABS: Hepatitis B Core IgM Negative; Hepatitis B Core Total AB Negative
[2020-04-22 14:25] LABS: Hepatitis B Surface Antigen Negative (Negative)
== END | disposition home or self-care (01) ==
LOC: LAB 09:29
PROVIDERS: ATTEND Internal Medicine
DX: E11.22 Type 2 diabetes mellitus with diabetic chronic kidney disease (principal); N18.30 Chronic kidney disease, stage 3 unspecified; D69.6 Thrombocytopenia, unspecified; N40.0 Benign prostatic hyperplasia without lower urinary tract symptoms
CPT/HCPCS: 36415; 80053; 80061; 81001; 82043; 83036; 83615; 84153; 84439; 84443; 85025; 85652; 86038; 86703; 86704; 86705; 86706; 86803; 87340

== ENCOUNTER → 2020-11-18 | Outpatient (CLI) | payer MEDICARE, OTHER ==
[~2020-11-18] MED LIST changes: -ACAR50TA PO; +ACAR50TA2 PO
[2020-11-18 09:22] LABS: BUN/Creatinine Ratio 10.5; Calcium 8.6 mg/dL (8.5-10.1); Potassium 4.2 mmol/L (3.5-5.1)
== END | disposition home or self-care (01) ==
LOC: LAB 08:42
PROVIDERS: ATTEND Internal Medicine
DX: I12.9 Hypertensive chronic kidney disease with stage 1 through stage 4 chronic kidney disease, or unspecified chronic kidney disease (principal); E11.22 Type 2 diabetes mellitus with diabetic chronic kidney disease; N18.30 Chronic kidney disease, stage 3 unspecified; E03.9 Hypothyroidism, unspecified
CPT/HCPCS: 36415; 80048; 83036; 84439; 84443

== ENCOUNTER → 2021-04-07 | Outpatient (CLI) | payer MEDICARE, OTHER ==
[~2021-04-07] MED LIST changes: -ASPI-231 PO; +ASPI1TAB20 PO
[2021-04-07 09:30] LABS: INR 1.24 (0.9-1.15)
[2021-04-07 10:09] LABS: Basophils # (auto) 0.1 10 ^3/uL (0-0.2); Basophils % (auto) 1.3 % (0.0-2.0); Eosinophils # (auto) 0.1 10 ^3/uL (0-0.8); Eosinophils % (auto) 3.2 % (0.0-7.0); Hemoglobin 13.9 g/dL (13.5-17.5); Lymphocytes # (auto) 1.1 10 ^3/uL (0.4-5.4); Lymphocytes % (auto) 24.9 % (10.0-50.0); Mean Corpuscular Volume 88.4 fL (80.0-100.0); Monocytes # (auto) 0.4 10 ^3/uL (0-1.3); Monocytes % (auto) 9.5 % (0.0-12.0); Neutrophils # (auto) 2.7 10 ^3/uL (1.6-8.6); Neutrophils % (auto) 61.1 % (37.0-80.0); Nucleated Red Blood Cells % 0.1 %; Red Blood Cells 4.63 10^6/uL (4.5-5.90); Red Cell Distribution Width 15.3 % (11.8-14.3); White Blood Cell 4.4 10^3/uL (4.4-10.8)
[2021-04-07 10:48] LABS: Free T4 (Free Thyroxine) 1.3 ng/dL (0.89-1.76)
[2021-04-07 11:11] LABS: Albumin 3.8 g/dL (3.4-5.0); BUN/Creatinine Ratio 12.8; Potassium 3.6 mmol/L (3.5-5.1)
[2021-04-07 11:14] LABS: Bilirubin, Total 2.3 mg/dL (0.2-1.0); Total Protein 6.9 g/dL (6.4-8.2)
[2021-04-07 11:29] LABS: Reticulocyte % (auto) 1.2 % (0.5-1.5)
[2021-04-07 11:41] LABS: Thyroid Stimulating Hormone 4.47 uIU/mL (0.358-3.74)
== END | disposition home or self-care (01) ==
LOC: LAB 08:39
PROVIDERS: ATTEND Internal Medicine
DX: E11.9 Type 2 diabetes mellitus without complications (principal); I10 Essential (primary) hypertension
CPT/HCPCS: 36415; 80053; 82607; 83036; 83615; 84439; 84443; 85025; 85045; 85610

== ENCOUNTER → 2021-09-13 | Outpatient (CLI) | payer MEDICARE, OTHER ==
[2021-09-13 10:13] LABS: Basophils # (auto) 0 10 ^3/uL (0-0.2); Basophils % (auto) 0.8 % (0.0-2.0); Eosinophils # (auto) 0.1 10 ^3/uL (0-0.8); Eosinophils % (auto) 1.6 % (0.0-7.0); Hemoglobin 13.8 g/dL (13.5-17.5); Lymphocytes # (auto) 1.2 10 ^3/uL (0.4-5.4); Lymphocytes % (auto) 26.2 % (10.0-50.0); Mean Corpuscular Hemoglobin 28.5 pg (28.0-32.0); Mean Corpuscular Hgb Conc. 32.1 g/dL (32.0-36.0); Monocytes # (auto) 0.4 10 ^3/uL (0-1.3); Monocytes % (auto) 8.4 % (0.0-12.0); Neutrophils # (auto) 2.8 10 ^3/uL (1.6-8.6); Nucleated Red Blood Cells % 0.1 %; Red Blood Cells 4.83 10^6/uL (4.5-5.90); Red Cell Distribution Width 15.4 % (11.8-14.3); White Blood Cell 4.4 10^3/uL (4.4-10.8)
[2021-09-13 10:16] LABS: Urine Bacteria NONE SEEN /hpf (None Seen); Urine Blood Negative /uL (Negative); Urine Hyaline Cast FEW /lpf (0 - 2); Urine Specific Gravity 1.011 (1.001-1.035); Urine WBC <1 /hpf (0 - 3)
[2021-09-13 10:59] LABS: Potassium 3.8 mmol/L (3.5-5.1)
[2021-09-13 11:03] LABS: Free T4 (Free Thyroxine) 1.18 ng/dL (0.89-1.76); Prostate Specific Antigen 1.39 ng/mL (0.0-4.0)
[2021-09-13 11:06] LABS: Albumin 3.9 g/dL (3.4-5.0); Calcium 9.4 mg/dL (8.5-10.1); Total Protein 7.3 g/dL (6.4-8.2)
== END | disposition home or self-care (01) ==
LOC: LAB 09:50
PROVIDERS: ATTEND Internal Medicine
DX: E11.9 Type 2 diabetes mellitus without complications (principal); N40.0 Benign prostatic hyperplasia without lower urinary tract symptoms
CPT/HCPCS: 36415; 80053; 80061; 81001; 83036; 84153; 84439; 84443; 85025; 85652

== ENCOUNTER → 2022-03-20 | Outpatient (CLI) | payer MEDICARE, OTHER ==
[2022-03-20 12:00] LABS: Basophils # (auto) 0.1 10 ^3/uL (0-0.2); Basophils % (auto) 1.2 % (0.0-2.0); Eosinophils # (auto) 0.1 10 ^3/uL (0-0.8); Hematocrit 39.5 % (41.0-53.0); Lymphocytes % (auto) 23.4 % (10.0-50.0); Mean Corpuscular Hemoglobin 28.3 pg (28.0-32.0); Mean Corpuscular Volume 85.6 fL (80.0-100.0); Monocytes # (auto) 0.4 10 ^3/uL (0-1.3); Monocytes % (auto) 8.5 % (0.0-12.0); Neutrophils # (auto) 2.8 10 ^3/uL (1.6-8.6); Neutrophils % (auto) 64.9 % (37.0-80.0); Red Blood Cells 4.61 10^6/uL (4.5-5.90); Red Cell Distribution Width 17.3 % (11.8-14.3); White Blood Cell 4.3 10^3/uL (4.4-10.8)
[2022-03-20 12:46] LABS: Potassium 3.5 mmol/L (3.5-5.1)
[2022-03-20 13:01] LABS: Albumin 4.1 g/dL (3.4-5.0); BUN/Creatinine Ratio 9.2; Bilirubin, Total 2.5 mg/dL (0.2-1.0); Calcium 8.8 mg/dL (8.5-10.1); Total Protein 6.9 g/dL (6.4-8.2)
== END | disposition home or self-care (01) ==
LOC: LAB 11:32
PROVIDERS: ATTEND Internal Medicine
DX: I10 Essential (primary) hypertension (principal); E11.9 Type 2 diabetes mellitus without complications
CPT/HCPCS: 36415; 80053; 83036; 85025

== ENCOUNTER → 2022-03-27 | Outpatient (CLI) | payer MEDICARE, OTHER | END | disposition home or self-care (01) | LOC: LAB 10:11 | PROVIDERS: ATTEND Internal Medicine | DX: D64.9 Anemia, unspecified (principal) | CPT/HCPCS: 82270 ==

== ENCOUNTER → 2022-06-15 | Outpatient (CLI) | payer MEDICARE, OTHER ==
[2022-06-15 12:16] LABS: Basophils # (auto) 0 10 ^3/uL (0-0.2); Basophils % (auto) 1.3 % (0.0-2.0); Eosinophils # (auto) 0.1 10 ^3/uL (0-0.8); Eosinophils % (auto) 1.9 % (0.0-7.0); Hematocrit 44.6 % (41.0-53.0); Hemoglobin 14.9 g/dL (13.5-17.5); Lymphocytes % (auto) 26.8 % (10.0-50.0); Mean Corpuscular Hemoglobin 29.2 pg (28.0-32.0); Mean Corpuscular Hgb Conc. 33.5 g/dL (32.0-36.0); Mean Corpuscular Volume 87.2 fL (80.0-100.0); Monocytes # (auto) 0.3 10 ^3/uL (0-1.3); Monocytes % (auto) 9.4 % (0.0-12.0); Neutrophils # (auto) 2.2 10 ^3/uL (1.6-8.6); Neutrophils % (auto) 60.6 % (37.0-80.0); Nucleated Red Blood Cells % 1.2 %; Red Blood Cells 5.12 10^6/uL (4.5-5.90); Red Cell Distribution Width 17.1 % (11.8-14.3); White Blood Cell 3.7 10^3/uL (4.4-10.8)
[2022-06-15 12:30] LABS: Urine Bacteria NONE SEEN /hpf (None Seen); Urine Blood Negative /uL (Negative); Urine Hyaline Cast FEW /lpf (0 - 2); Urine Specific Gravity 1.009 (1.001-1.035); Urine WBC <1 /hpf (0 - 3)
[2022-06-15 12:50] LABS: Albumin 4.1 g/dL (3.4-5.0); Calcium 9.4 mg/dL (8.5-10.1); Potassium 3.9 mmol/L (3.5-5.1)
[2022-06-15 12:54] LABS: Total Protein 7.3 g/dL (6.4-8.2)
== END | disposition home or self-care (01) ==
LOC: LAB 11:48
PROVIDERS: ATTEND Internal Medicine
DX: E11.9 Type 2 diabetes mellitus without complications (principal); K76.0 Fatty (change of) liver, not elsewhere classified; I10 Essential (primary) hypertension; K21.9 Gastro-esophageal reflux disease without esophagitis; N40.0 Benign prostatic hyperplasia without lower urinary tract symptoms
CPT/HCPCS: 36415; 80053; 81001; 82150; 83036; 83690; 84153; 85025; 86677

== ENCOUNTER → 2022-07-19 | Outpatient (CLI) | payer MEDICARE, OTHER ==
[~2022-07-19] MED LIST changes: +ENAL1TAB48 PO; -ENAL20TA8 PO; +WARF-66 PO; -WARF5TAB71 PO
[2022-07-19 12:09] LABS: INR 1.19 (0.9-1.15)
== END | disposition home or self-care (01) ==
LOC: LAB 11:24
PROVIDERS: ATTEND Internal Medicine
DX: K76.0 Fatty (change of) liver, not elsewhere classified (principal); K76.89 Other specified diseases of liver; D35.00 Benign neoplasm of unspecified adrenal gland
CPT/HCPCS: 36415; 82085; 82105; 82384; 85610

== ENCOUNTER → 2022-07-26 | Outpatient (CLI) | payer MEDICARE, OTHER ==
[2022-07-26 13:41] LABS: Calcium 8.7 mg/dL (8.5-10.1); Potassium 3.8 mmol/L (3.5-5.1)
[2022-07-26 13:43] LABS: BUN/Creatinine Ratio 9.1 (10.0-20.0)
== END | disposition home or self-care (01) ==
LOC: LAB 12:54
PROVIDERS: ATTEND Physician Assistant Medical
DX: I10 Essential (primary) hypertension (principal); I48.0 Paroxysmal atrial fibrillation; R94.39 Abnormal result of other cardiovascular function study; E78.00 Pure hypercholesterolemia, unspecified; N28.9 Disorder of kidney and ureter, unspecified; E79.0 Hyperuricemia without signs of inflammatory arthritis and tophaceous disease; K64.9 Unspecified hemorrhoids; I27.21 Secondary pulmonary arterial hypertension; I42.9 Cardiomyopathy, unspecified; D69.6 Thrombocytopenia, unspecified; Z95.0 Presence of cardiac pacemaker; E11.9 Type 2 diabetes mellitus without complications; K21.9 Gastro-esophageal reflux disease without esophagitis
CPT/HCPCS: 36415; 80048; 83880

== ENCOUNTER → 2023-07-16 | Outpatient (CLI) | payer MEDICARE, OTHER ==
[2023-07-16 11:09] LABS: Basophils # (auto) 0 10 ^3/uL (0-0.2); Basophils % (auto) 0.9 % (0.0-2.0); Eosinophils # (auto) 0.1 10 ^3/uL (0-0.8); Eosinophils % (auto) 2.7 % (0.0-7.0); Hematocrit 42.2 % (41.0-53.0); Hemoglobin 14.1 g/dL (13.5-17.5); Lymphocytes # (auto) 0.7 10 ^3/uL (0.4-5.4); Lymphocytes % (auto) 22.5 % (10.0-50.0); Mean Corpuscular Hemoglobin 31.2 pg (28.0-32.0); Mean Corpuscular Hgb Conc. 33.4 g/dL (32.0-36.0); Mean Corpuscular Volume 93.4 fL (80.0-100.0); Monocytes # (auto) 0.4 10 ^3/uL (0-1.3); Monocytes % (auto) 11.3 % (0.0-12.0); Neutrophils # (auto) 2.1 10 ^3/uL (1.6-8.6); Neutrophils % (auto) 62.6 % (37.0-80.0); Nucleated Red Blood Cells % 0.2 %; Red Blood Cells 4.52 10^6/uL (4.5-5.90); Red Cell Distribution Width 18.3 % (11.8-14.3); White Blood Cell 3.3 10^3/uL (4.4-10.8)
[2023-07-16 11:57] LABS: Albumin 4.3 g/dL (3.2-4.8); Alkaline Phosphatase 59 U/L (46-116); Anion Gap 7 (5-15); Aspartate Aminotransferase 16 U/L (13-40); BUN/Creatinine Ratio 4.8 (10.0-20.0); Blood Urea Nitrogen 7 mg/dL (9-23); Carbon Dioxide 28 mmol/L (20-30); Chloride 102 mmol/L (98-107); Glucose 162 mg/dL (74-106); Magnesium 1.2 mg/dL (1.6-2.6); Potassium 3.8 mmol/L (3.5-5.1); Sodium 137 mmol/L (136-145); Total Protein 6.5 g/dL (5.7-8.2)
[2023-07-16 12:09] LABS: Alanine Aminotransferase < 9 U/L (7-40)
[2023-07-17 08:06] LABS: AFP Serum Tumor Marker 2.8 ng/mL (0.0-8.4)
== END | disposition home or self-care (01) ==
LOC: LAB 10:52
PROVIDERS: ATTEND Internal Medicine
DX: I10 Essential (primary) hypertension (principal); E11.9 Type 2 diabetes mellitus without complications; K76.89 Other specified diseases of liver; D35.02 Benign neoplasm of left adrenal gland; K76.0 Fatty (change of) liver, not elsewhere classified; Z79.899 Other long term (current) drug therapy
CPT/HCPCS: 36415; 80053; 82105; 82384; 83036; 83735; 85025

== ENCOUNTER → 2023-10-04 | Outpatient (CLI) | payer MEDICARE, OTHER ==
[2023-10-04 09:15] LABS: Basophils # (auto) 0 10 ^3/uL (0-0.2); Eosinophils # (auto) 0.1 10 ^3/uL (0-0.8); Eosinophils % (auto) 3.4 % (0.0-7.0); Hematocrit 41.6 % (41.0-53.0); Lymphocytes % (auto) 24.1 % (10.0-50.0); Mean Corpuscular Hemoglobin 30.3 pg (28.0-32.0); Mean Corpuscular Hgb Conc. 33.6 g/dL (32.0-36.0); Mean Corpuscular Volume 90.1 fL (80.0-100.0); Monocytes # (auto) 0.4 10 ^3/uL (0-1.3); Monocytes % (auto) 9.9 % (0.0-12.0); Neutrophils # (auto) 2.6 10 ^3/uL (1.6-8.6); Neutrophils % (auto) 61.6 % (37.0-80.0); Nucleated Red Blood Cells % 0.1 %; Platelet Count (auto) 126 10^3/uL (140-450); Red Blood Cells 4.62 10^6/uL (4.5-5.90); Red Cell Distribution Width 17.2 % (11.8-14.3); White Blood Cell 4.3 10^3/uL (4.4-10.8)
[2023-10-04 09:31] LABS: INR 1.25 (0.9-1.15)
[2023-10-04 09:52] LABS: Alanine Aminotransferase 23 U/L (7-40); Albumin 4.4 g/dL (3.2-4.8); Alkaline Phosphatase 79 U/L (46-116); Anion Gap 5 (5-15); Aspartate Aminotransferase 27 U/L (13-40); BUN/Creatinine Ratio 6.9 (10.0-20.0); Bilirubin, Total 3.2 mg/dL (0.2-1.0); Blood Urea Nitrogen 11 mg/dL (9-23); Calcium 9.6 mg/dL (8.7-10.4); Carbon Dioxide 29 mmol/L (20-30); Chloride 108 mmol/L (98-107); Glucose 144 mg/dL (74-106); Magnesium 1.5 mg/dL (1.6-2.6); Potassium 4.1 mmol/L (3.5-5.1); Sodium 142 mmol/L (136-145); Total Protein 6.9 g/dL (5.7-8.2)
== END | disposition home or self-care (01) ==
LOC: LAB 09:00
PROVIDERS: ATTEND Internal Medicine
DX: I11.0 Hypertensive heart disease with heart failure (principal); I50.9 Heart failure, unspecified; D72.819 Decreased white blood cell count, unspecified
CPT/HCPCS: 36415; 80053; 82607; 83615; 83735; 83880; 85025; 85610

== ENCOUNTER → 2023-11-09 | Outpatient (CLI) | payer MEDICARE, OTHER ==
[2023-11-09 13:48] LABS: Basophils # (auto) 0.1 10 ^3/uL (0-0.2); Basophils % (auto) 1.2 % (0.0-2.0); Eosinophils # (auto) 0.1 10 ^3/uL (0-0.8); Eosinophils % (auto) 2.8 % (0.0-7.0); Hematocrit 39.2 % (41.0-53.0); Hemoglobin 13.1 g/dL (13.5-17.5); Lymphocytes % (auto) 22.4 % (10.0-50.0); Mean Corpuscular Hemoglobin 30.8 pg (28.0-32.0); Mean Corpuscular Hgb Conc. 33.5 g/dL (32.0-36.0); Mean Corpuscular Volume 92.1 fL (80.0-100.0); Monocytes # (auto) 0.4 10 ^3/uL (0-1.3); Monocytes % (auto) 9.2 % (0.0-12.0); Neutrophils # (auto) 2.7 10 ^3/uL (1.6-8.6); Neutrophils % (auto) 64.4 % (37.0-80.0); Platelet Count (auto) 145 10^3/uL (140-450); Red Blood Cells 4.26 10^6/uL (4.5-5.90); Red Cell Distribution Width 18.5 % (11.8-14.3); White Blood Cell 4.3 10^3/uL (4.4-10.8)
[2023-11-09 15:21] LABS: % Iron Saturation 25.7 % (20-55); Alanine Aminotransferase 30 U/L (7-40); Alkaline Phosphatase 103 U/L (46-116); Aspartate Aminotransferase 32 U/L (13-40)
[2023-11-10 06:06] LABS: Hepatitis B Core Total Antibod Negative (Negative)
[2023-11-10 08:06] LABS: AFP Serum Tumor Marker 2.2 ng/mL (0.0-8.4)
[2023-11-10 11:07] LABS: Anti-Nuclear Antibody Direct Negative (Negative)
[2023-11-12 08:47] LABS: Hepatitis B Surface Antibody Negative (Negative)
[2023-11-12 08:57] LABS: Hepatitis B Surface Antigen Negative (Negative)
[2023-11-12 09:18] LABS: Hepatitis A Ab IgM Negative
[2023-11-12 09:19] LABS: Hepatitis B Core IgM Negative; Hepatitis C Antibody Negative (Negative)
[2023-11-12 09:27] LABS: Hepatitis A Total Antibody Negative (Negative)
== END | disposition home or self-care (01) ==
LOC: LAB 13:08
PROVIDERS: ATTEND Specialist
DX: K76.0 Fatty (change of) liver, not elsewhere classified (principal); E80.7 Disorder of bilirubin metabolism, unspecified; Z79.899 Other long term (current) drug therapy; Z82.49 Family history of ischemic heart disease and other diseases of the circulatory system
CPT/HCPCS: 36415; 82105; 82728; 83036; 83540; 83550; 84075; 84450; 84460; 85025; 86038; 86705; 86706; 86708; 86709; 86803; 87340

== ENCOUNTER 2023-12-20 11:13 | Emergency (ER) | payer MEDICARE, OTHER ==
[~2023-12-20] VITALS: Ht 170.2 cm; Wt 95.6 kg
--- NOTE | 2023-12-20 11:34 | ED.PDOC ---
History of Present Illness(SKN HPI Comments HPI: Poor Historian. 73 y.o male presents to the ED for an evaluation of a wound check. Patient reports he scratched a scab off that was located to the left lower leg and states it began to squirt blood. Patient reports this incident occurred about 1.5 hours ago, presents with dried blood covering his left and right lower extremity. Patient denies any history of varicose veins, lightheadedness, dizziness, or pain. Patient is on Eliquis, mentions he took it this morning alongside his other medications. Vital signs: BP: 127/70 HR: 79 Temp: 97.4 F SPO2: 99% RA RR: 16 Patient reports allergies to Eggs and egg derived products Past medical history: AFIB, pulmonary hypertension, hyperlipidemia, DM, GERD, CAD, EJ fraction at 30-35% , CVA leading to the use of Eliquis, disorder of the kidney Past surgical history: Pacemaker and angiogram: reading non obstructing CAD REVIEW OF SYSTEMS: CONSTITUTIONAL: Denies acute: fever, diaphoresis, chills, generalized weakness. HEAD: Denies acute: headache, photophobia Eyes: Denies acute: Double vision, vision loss, eye pain, eye discharge. EARS: Denies acute: tinnitus, hearing loss, ear discharge, ear pain, THROAT: Denies acute: sore throat, swelling, difficulty swallowing , pain with swallowing, change in voice. NECK: Denies acute: neck pain, neck swelling, stiff neck. HEART: Denies acute : chest pain, palpitations, LUNGS: Denies acute: SOB, wheezing, cough, hemoptysis ABDOMEN: Denies acute: abdominal pain, Nausea, Vomiting, diarrhea, melena , hematemesis, hematochezia SKIN: Denies acute: rash, redness, lesions, itchiness. EXTREMITIES: Denies acute: calf pain, numbness, tingling, weakness, denies pain in extremity. Denies acute: Low back pain. Neuro: Denies acute: focal neurological deficit, motor or sensory focal neurological deficit, tremors, seizure like activity, confusion, dizziness, change in mental status, loss of bowel or bladder function, cauda equina like symptoms. : Denies acute: dysuria, hematuria, flank pain, increase in urinary frequency. PSYCH: Denies acute: hallucination, suicidal ideation, homicidal ideation. PHYSICAL EXAM: General: no acute distress, awake and alert. Head: normocephalic, atraumatic. Neck: supple, trachea is midline, no swelling. Throat: Normal phonation. Eyes:, no erythema, no purulent discharge, no proptosis, no icterus. Heart: regular rate, regular rhythm, no significant murmur appreciated. Lungs: no apparent respiratory distress, Able to speak in full sentences. No wheezing, no rhonchi, no crackles. No stridors Clear to auscultation bilaterally. Abdomen: non tender to palpation, non distended, soft, no guarding, no rebound, + bowel sounds. Neuro: Awake, Alert, oriented to name, self, situation, follows commands GCS=15. Speech is normal. Skin: no petechia, no purpura, no cyanosis, non-pale, not jaundice. Lower extremities: --trace bilateral - Pitting edema no deformity, no focal swelling, no calf TTP. Evaluation of the left lower extremity there is a small scab that he has picked on that is oozing blood. The extremity was cleaned well and wound dressing and wrapping over the area that is oozing blood was applied. Patient is neurovascularly intact in the affected extremity. Pedal pulses are palpable. Motor and sensory are present. Patient denies any pain in his legs. Makes eye contact. moves all four extremities. Face: no apparent facial droop. Ambulating in the ED independently. Time Seen by MD: 11:19 Primary Care Provider: PATRICIA History of Present Illness: Nurses Notes, Medications, Allergies Allergies: Coded Allergies: Eggs or Egg-derived Products (Verified Allergy, Unknown, 08/10/15) Home Meds Reported Medications Febuxostat (Uloric) 80 Mg Tab, 1 TAB PO DAILY, #90 TAB 1 Refill 08/16/16 Acarbose (Acarbose) 50 Mg Tab, 225 MG PO TIDBM, TAB 08/16/16 Glyburide (Glyburide) 5 Mg Tab, 5 MG PO BID, TAB 08/16/16 Linagliptin Base (TRADJENTA) 5 Mg Tab, 5 MG PO DAILY, TAB 08/16/16 Aspirin (Aspir-81) 81 Mg Tab, 1 TAB PO DAILY, #30 TAB 5 Refills 08/16/16 Warfarin Sodium (Warfarin Sodium) 5 Mg Tab, 5 MG PO DAILY for 30 Days, MG 7/5/17 Carvedilol (Carvedilol) 12.5 Mg Tab, 1 TAB PO BID, #180 TAB 1 Refill 08/16/16 Enalapril Maleate (Enalapril Maleate) 20 Mg Tab, 1 TAB PO BID, #180 TAB 1 Refill 08/16/16 Pantoprazole Sodium Sesquihydr (Pantoprazole Sodium) 40 Mg Tab, 40 MG PO DAILY, TAB 08/16/16 Multiple Vitamins W/ Minerals (MULTIVITAMIN) Liq, 1 PO DAILY, LIQ 08/16/16 Information Source: Patient Mode of Arrival: Ambulatory Severity: Moderate Timing: Hours Past Medical History PAST MEDICAL HISTORY: AFIB, CAD, CHF, CVA, DM, ESRD, GERD, High Lipids, HTN Surgical History: Pacemaker Surgical History (Other): angiogram Family History Family History: No family hx of Heart graham, No family hx of HTN Social History Smoker: Non-Smoker Alcohol: Denies ETOH Use Drugs: Denies Drug Use Lives In: Home Was a procedure done? Was a procedure done?: Yes Sedation Sedation?: No Other Procedure Procedure Control of bleed of left lower extremity of patient on Eliquis who picked on a scab. Differential Diagnosis (INTG) Differential Diagnosis: Abrasion, Hematoma Differential Diagnosis: Contusion, Neurovascular Injury Abscess: Abscess, Gas Gangrene Differential Diagnosis: Cellulitis, Puncture Wound X-Ray, Labs, Meds, VS Vital Signs Date Time Temp Pulse Resp B/P (MAP) Pulse Ox O2 Delivery O2 Flow Rate FiO2 12/20/23 16:00 75 12/20/23 14:21 71 18 156/84 (108) 100 12/20/23 13:03 77 18 146/89 (108) 100 12/20/23 12:00 83 12/20/23 11:54 98.2 80 18 151/80 (103) 99 98.2 12/20/23 11:15 97.4 79 16 127/70 (89) 99 Lab Test 12/20/23 14:31 12/20/23 11:44 Range/Units Hemoglobin 12.6 L 12.5 L 13.5-17.5 g/dL Hematocrit 37.2 L 36.9 L 41.0-53.0 % White Blood Count 3.7 L 4.4-10.8 10^3/uL Red Blood Count 4.02 L 4.5-5.90 10^6/uL Mean Corpuscular Volume 91.8 80.0-100.0 fL Mean Corpuscular Hemoglobin 31.1 28.0-32.0 pg Mean Corpuscular Hemoglobin Concent 33.9 32.0-36.0 g/dL Red Cell Distribution Width 15.3 H 11.8-14.3 % Platelet Count 133 L 140-450 10^3/uL Mean Platelet Volume 8.4 6.9-10.8 fL Neutrophils (%) (Auto) 66.7 37.0-80.0 % Lymphocytes (%) (Auto) 19.0 10.0-50.0 % Monocytes (%) (Auto) 10.4 0.0-12.0 % Eosinophils (%) (Auto) 2.8 0.0-7.0 % Basophils (%) (Auto) 1.1 0.0-2.0 % Neutrophils # (Auto) 2.5 1.6-8.6 10 ^3/uL Lymphocytes # (Auto) 0.7 0.4-5.4 10 ^3/uL Monocytes # (Auto) 0.4 0-1.3 10 ^3/uL Eosinophils # (Auto) 0.1 0-0.8 10 ^3/uL Basophils # (Auto) 0 0-0.2 10 ^3/uL Nucleated Red Blood Cells 0.0 % Sodium Level 143 136-145 mmol/L Potassium Level 3.9 3.5-5.1 mmol/L Chloride Level 110 H 98-107 mmol/L Carbon Dioxide Level 29 20-31 mmol/L Anion Gap 4 L 5-15 Blood Urea Nitrogen 15 9-23 mg/dL Creatinine 1.64 H 0.700-1.30 mg/dL Glomerular Filtration Rate Calc 44 >90 mL/min BUN/Creatinine Ratio 9.1 L 10.0-20.0 Serum Glucose 142 H 74-106 mg/dL Calcium Level 9.3 8.7-10.4 mg/dL Current Medications Medications (Trade) Dose Ordered Sig/Mal Route Start Time Stop Time Status Last Admin Silver Nitrate (Silver Nitrate Appl) 1 applic ONCE ONCE TOP 12/20/23 15:45 12/20/23 15:46 DC 12/20/23 15:56 Cellulose (Surgicel PA 2X3 INCH) 1 pad ONCE ONCE TOP 12/20/23 15:45 12/20/23 15:46 DC 12/20/23 15:56 Time of 1ST Reevaluation: 11:27 Reevaluation 1ST: Unchanged Time of 2ND Reevaluation: 17:15 Reevaluation 2ND: Resolved Patient Education/Counseling: Diagnosis, Treatment Family Education/Counseling: No Family Present Comments Patient presented with the above HPI.---extremity skin lesion bleeding---workup was initiated. patient was found with the above mentioned diagnosis. Patient was evaluated immediately. Wound dressing was applied in the hemorrhaging was controlled. Patient was re-evaluated and continues to have some oozing from the scab that he picked on. Non arterial. Non pulsating. Silver sticks were applied and surgery cell as well and then the patient was wrapped with wound dressing with some pressure. Patient was given instructions to remove the wound dressing if he starts to experience numbness or tingling or pain distal to his site of bleeding where the wound dressing is. Patient was given wound care instructions. Patient ED course and VS have been stabilized. Patient has been reassessed in the ED and remained in a stable condition. Pertinent incidental findings were discussed with the patient and/or family. Patient/family voices understanding and is agreeable with plan. Patient has been observed in the ED adequate length of time to insure improvement/stability. All the reports of any imaging studies that were ordered by myself were reviewed by myself. Departure 1 Departure Time of Disposition: 13:21 Impression: Primary Impression: Hemorrhage of skin lesion Disposition: HOME / SELF CARE / HOMELESS Condition: Stable Additional Instructions: Additional discharge instructions: You MUST follow-up with your primary care/family doctor in 1 to 2 days. If you are unable to see your primary care/family doctor, please return to our emergency room for re-assessment and re-evaluation in 1 to 2 days. Return to the emergency room here in our facility or to the nearest ER [facility] if your symptoms change or worsen. CONSULTATIONS: you MUST Follow-up for consultation as soon as possible with: --cardiology and nephrology regarding your creatinine and kidney function. Please call for appointment.- You MUST call the consultants office yourself to make an appointment. You may need to arrange that through your insurance and/or your primary/family doctor. If you are unable to see the internet marketing consultant in 1 to 2 days, you must return to our emergency room (or any other ER of your choice) for re-assessment and re- evaluation. Adequate fluid hydration. Repeat CBC in 24-48 hours. Remove the wound dressing as instructed tomorrow. Apply a Band-Aid over the wound after remove the wound dressing. Monitor blood pressure at home at least 3 times a day. Discharged With: Self Critical Care Note Critical Care Time?: No I personally scribed for JOSELITO EDGAR DO ([email or web address]) on 12/20/23 at 11:34. Electronically submitted by Bryanna Tierney ([facility]). JOSELITO EDGAR DO Dec 20, 2023 11:34
[2023-12-20 11:54] VITALS: TEMP 98.2
[2023-12-20 12:17] LABS: Basophils # (auto) 0 10 ^3/uL (0-0.2); Basophils % (auto) 1.1 % (0.0-2.0); Eosinophils # (auto) 0.1 10 ^3/uL (0-0.8); Eosinophils % (auto) 2.8 % (0.0-7.0); Hematocrit 36.9 % (41.0-53.0); Hemoglobin 12.5 g/dL (13.5-17.5); Lymphocytes # (auto) 0.7 10 ^3/uL (0.4-5.4); Mean Corpuscular Hemoglobin 31.1 pg (28.0-32.0); Mean Corpuscular Hgb Conc. 33.9 g/dL (32.0-36.0); Mean Corpuscular Volume 91.8 fL (80.0-100.0); Monocytes # (auto) 0.4 10 ^3/uL (0-1.3); Monocytes % (auto) 10.4 % (0.0-12.0); Neutrophils # (auto) 2.5 10 ^3/uL (1.6-8.6); Neutrophils % (auto) 66.7 % (37.0-80.0); Platelet Count (auto) 133 10^3/uL (140-450); Red Blood Cells 4.02 10^6/uL (4.5-5.90); Red Cell Distribution Width 15.3 % (11.8-14.3); White Blood Cell 3.7 10^3/uL (4.4-10.8)
[2023-12-20 12:25] LABS: Chloride 110 mmol/L (98-107); Potassium 3.9 mmol/L (3.5-5.1); Sodium 143 mmol/L (136-145)
[2023-12-20 12:26] LABS: Anion Gap 4 (5-15); Calcium 9.3 mg/dL (8.7-10.4); Carbon Dioxide 29 mmol/L (20-31)
[2023-12-20 12:31] LABS: BUN/Creatinine Ratio 9.1 (10.0-20.0); Blood Urea Nitrogen 15 mg/dL (9-23); Glucose 142 mg/dL (74-106)
[2023-12-20 14:21] VITALS: BP 156/84; RESP 18; O2SAT 100
[2023-12-20 14:59] LABS: Hematocrit 37.2 % (41.0-53.0); Hemoglobin 12.6 g/dL (13.5-17.5)
[2023-12-20] MEDS: Surgicel PA 2X3 INCH TOP ONE (15:56)
[2023-12-20] MEDS: SILVER NITRATE-POTAS NITRA STICK TOP ONE (15:56)
[2023-12-20 16:00] VITALS: PULSE 75
== END 2023-12-20 17:39 | disposition home or self-care (01) ==
LOC: ER 11:19
DX: L76.21 Postprocedural hemorrhage of skin and subcutaneous tissue following a dermatologic procedure (principal); L98.9 Disorder of the skin and subcutaneous tissue, unspecified; K21.9 Gastro-esophageal reflux disease without esophagitis; E11.22 Type 2 diabetes mellitus with diabetic chronic kidney disease; I13.2 Hypertensive heart and chronic kidney disease with heart failure and with stage 5 chronic kidney disease, or end stage renal disease; I50.9 Heart failure, unspecified; N18.6 End stage renal disease; I48.91 Unspecified atrial fibrillation; I25.10 Atherosclerotic heart disease of native coronary artery without angina pectoris; E78.5 Hyperlipidemia, unspecified; Z79.01 Long term (current) use of anticoagulants; Z79.82 Long term (current) use of aspirin; Z79.84 Long term (current) use of oral hypoglycemic drugs; Z79.899 Other long term (current) drug therapy; Z86.73 Personal history of transient ischemic attack (TIA), and cerebral infarction without residual deficits; Z95.0 Presence of cardiac pacemaker
CPT/HCPCS: 36415; 80048; 85014; 85018; 85025; 86850; 86900; 86901

== ENCOUNTER → 2024-04-21 | Outpatient (CLI) | payer MEDICARE, OTHER ==
[2024-04-21 10:22] LABS: Urine Bacteria None Seen /hpf (None Seen)
[2024-04-21 10:27] LABS: Basophils # (auto) 0.1 10 ^3/uL (0-0.2); Eosinophils # (auto) 0.2 10 ^3/uL (0-0.8); Eosinophils % (auto) 3.9 % (0.0-7.0); Hematocrit 37.9 % (41.0-53.0); Hemoglobin 12.5 g/dL (13.5-17.5); Lymphocytes # (auto) 0.8 10 ^3/uL (0.4-5.4); Lymphocytes % (auto) 19.8 % (10.0-50.0); Mean Corpuscular Hemoglobin 28.3 pg (28.0-32.0); Mean Corpuscular Volume 85.7 fL (80.0-100.0); Monocytes # (auto) 0.5 10 ^3/uL (0-1.3); Monocytes % (auto) 11.6 % (0.0-12.0); Neutrophils # (auto) 2.6 10 ^3/uL (1.6-8.6); Neutrophils % (auto) 62.7 % (37.0-80.0); Platelet Count (auto) 132 10^3/uL (140-450); Red Blood Cells 4.43 10^6/uL (4.5-5.90); Red Cell Distribution Width 15.7 % (11.8-14.3); White Blood Cell 4.2 10^3/uL (4.4-10.8)
[2024-04-21 10:44] LABS: INR 1.32 (0.9-1.15); Prothrombin Time 13.6 sec (9.3-11.8)
[2024-04-21 10:57] LABS: Urine Blood Negative /uL (Negative); Urine Clarity Clear (Clear); Urine Color Yellow (Yellow); Urine Protein, UAD TRACE (Negative); Urine Specific Gravity 1.011 (1.001-1.035); Urine Squamous Epithelial Cell FEW /hpf (<5); Urine Urobilinogen Normal (Negative); Urine WBC < 1 /HPF (0-3); Urine pH 5.5 (5.0-9.0)
[2024-04-21 11:00] LABS: Alanine Aminotransferase 15 U/L (7-40); Albumin 4.6 g/dL (3.2-4.8); Alkaline Phosphatase 95 U/L (46-116); Anion Gap 7 (5-15); Aspartate Aminotransferase 24 U/L (13-40); BUN/Creatinine Ratio 8.9 (10.0-20.0); Blood Urea Nitrogen 16 mg/dL (9-23); Calcium 9.7 mg/dL (8.7-10.4); Carbon Dioxide 29 mmol/L (20-31); Cholesterol 130 mg/dL (< 200); Glucose 85 mg/dL (74-106); LDL Cholesterol 77 mg/dL (< 100); Sodium 143 mmol/L (136-145); Total Protein 6.9 g/dL (5.7-8.2); Triglycerides 61 mg/dL (< 150)
[2024-04-21 11:01] LABS: HDL Cholesterol 42 mg/dL (40-59)
[2024-04-21 11:03] LABS: Chloride 107 mmol/L (98-107)
[2024-04-21 11:04] LABS: Bilirubin, Total 2.7 mg/dL (0.2-1.0)
[2024-04-21 11:05] LABS: Erythrocyte Sedimentation Rate 9 mm/hr (0-20)
[2024-04-21 11:07] LABS: Prostate Specific Antigen 1.51 ng/mL (0.0-4.0)
[2024-04-21 11:11] LABS: Free T4 (Free Thyroxine) 1.42 ng/dL (0.89-1.76)
[2024-04-21 11:14] LABS: Creatinine, Urine 128.13 mg/dL (30.0-125.0)
== END | disposition home or self-care (01) ==
LOC: LAB 10:10
PROVIDERS: ATTEND Internal Medicine
DX: N40.0 Benign prostatic hyperplasia without lower urinary tract symptoms (principal); I11.0 Hypertensive heart disease with heart failure; E11.9 Type 2 diabetes mellitus without complications; I50.9 Heart failure, unspecified; K76.0 Fatty (change of) liver, not elsewhere classified
CPT/HCPCS: 36415; 80053; 80061; 81001; 82043; 82570; 82607; 84153; 84439; 84443; 85025; 85610; 85652

== ENCOUNTER → 2024-07-03 | Outpatient (CLI) | payer MEDICARE, OTHER ==
[2024-07-03 13:20] LABS: Basophils # (auto) 0 10 ^3/uL (0-0.2); Basophils % (auto) 1.3 % (0.0-2.0); Eosinophils # (auto) 0.2 10 ^3/uL (0-0.8); Eosinophils % (auto) 5.3 % (0.0-7.0); Hematocrit 36.7 % (41.0-53.0); Hemoglobin 12.2 g/dL (13.5-17.5); Lymphocytes # (auto) 0.9 10 ^3/uL (0.4-5.4); Lymphocytes % (auto) 27.4 % (10.0-50.0); Mean Corpuscular Hemoglobin 27.7 pg (28.0-32.0); Mean Corpuscular Hgb Conc. 33.4 g/dL (32.0-36.0); Monocytes # (auto) 0.3 10 ^3/uL (0-1.3); Monocytes % (auto) 10.4 % (0.0-12.0); Neutrophils # (auto) 1.8 10 ^3/uL (1.6-8.6); Neutrophils % (auto) 55.6 % (37.0-80.0); Platelet Count (auto) 131 10^3/uL (140-450); Red Blood Cells 4.42 10^6/uL (4.5-5.90); Red Cell Distribution Width 17.5 % (11.8-14.3); White Blood Cell 3.2 10^3/uL (4.4-10.8)
[2024-07-03 13:34] LABS: INR 1.41 (0.9-1.15); Prothrombin Time 14.4 sec (9.3-11.8)
[2024-07-03 13:36] LABS: Alanine Aminotransferase 16 U/L (7-40); Albumin 4.6 g/dL (3.2-4.8); Alkaline Phosphatase 100 U/L (46-116); Anion Gap 11 (5-15); Aspartate Aminotransferase 23 U/L (13-40); BUN/Creatinine Ratio 8.3 (10.0-20.0); Blood Urea Nitrogen 14 mg/dL (9-23); Calcium 9.6 mg/dL (8.7-10.4); Carbon Dioxide 26 mmol/L (20-31); Glucose 93 mg/dL (74-106); Potassium 4.2 mmol/L (3.5-5.1); Sodium 145 mmol/L (136-145); Total Protein 6.9 g/dL (5.7-8.2)
[2024-07-03 13:37] LABS: Bilirubin, Total 3.3 mg/dL (0.2-1.0); Chloride 108 mmol/L (98-107); Uric Acid 9.9 mg/dL (3.7-9.2)
== END | disposition home or self-care (01) ==
LOC: LAB 12:52
PROVIDERS: ATTEND Internal Medicine
DX: K76.0 Fatty (change of) liver, not elsewhere classified (principal); Z79.899 Other long term (current) drug therapy
CPT/HCPCS: 36415; 80053; 82607; 83036; 83540; 83970; 84550; 85025; 85610

== ENCOUNTER → 2024-09-26 | Outpatient (CLI) | payer MEDICARE, OTHER ==
[2024-09-26 09:45] LABS: Potassium 3.9 mmol/L (3.5-5.1); Sodium 144 mmol/L (136-145)
[2024-09-26 09:46] LABS: Anion Gap 8 (5-15); Calcium 9.2 mg/dL (8.7-10.4); Carbon Dioxide 28 mmol/L (20-31)
[2024-09-26 09:51] LABS: BUN/Creatinine Ratio 6.4 (10.0-20.0); Blood Urea Nitrogen 12 mg/dL (9-23)
[2024-09-26 09:54] LABS: Chloride 108 mmol/L (98-107); Glucose 72 mg/dL (74-106)
== END | disposition home or self-care (01) ==
LOC: LAB 09:06
PROVIDERS: ATTEND Internal Medicine Cardiovascular Disease
DX: I11.0 Hypertensive heart disease with heart failure (principal); I50.20 Unspecified systolic (congestive) heart failure; E11.9 Type 2 diabetes mellitus without complications; I48.0 Paroxysmal atrial fibrillation; R06.02 Shortness of breath
CPT/HCPCS: 36415; 80048

== ENCOUNTER 2024-10-30 12:11 | Outpatient (CLI) | payer MEDICARE, OTHER ==
[2024-10-30 12:49] LABS: Hematocrit 37.6 % (41.0-53.0); Hemoglobin 12.7 g/dL (13.5-17.5); Mean Corpuscular Hemoglobin 29.2 pg (28.0-32.0); Mean Corpuscular Volume 86.5 fL (80.0-100.0); Nucleated Red Blood Cells % 0.2 %
[2024-10-30 13:05] LABS: Alanine Aminotransferase 12 U/L (7-40); Albumin 4.3 g/dL (3.2-4.8); Alkaline Phosphatase 89 U/L (46-116); Anion Gap 12 (5-15); BUN/Creatinine Ratio 8.4 (10.0-20.0); Blood Urea Nitrogen 18 mg/dL (9-23); Calcium 9.2 mg/dL (8.7-10.4); Carbon Dioxide 27 mmol/L (20-31); Chloride 106 mmol/L (98-107); Potassium 3.7 mmol/L (3.5-5.1); Sodium 145 mmol/L (136-145); Total Protein 6.6 g/dL (5.7-8.2)
[2024-10-30 13:12] LABS: Bilirubin, Total 2.8 mg/dL (0.2-1.0); Glucose 69 mg/dL (74-106); Magnesium 1.5 mg/dL (1.6-2.6)
== END 2024-10-30 17:00 | disposition home or self-care (01) ==
LOC: LAB 12:11
PROVIDERS: ATTEND Internal Medicine
DX: I13.0 Hypertensive heart and chronic kidney disease with heart failure and stage 1 through stage 4 chronic kidney disease, or unspecified chronic kidney disease (principal); E11.22 Type 2 diabetes mellitus with diabetic chronic kidney disease; I50.32 Chronic diastolic (congestive) heart failure; N18.30 Chronic kidney disease, stage 3 unspecified
CPT/HCPCS: 36415; 80053; 83735; 83880; 84439; 84443; 85025

== ENCOUNTER 2024-11-05 11:20 | Inpatient (IN) | payer OTHER, MEDICARE ==
[~2024-11-05] VITALS: Ht 167.6 cm; Wt 103.5 kg
--- NOTE | 2024-11-05 11:54 | ED.PDOC ---
HPI Comments HPI: 74 year old male presents to the emergency department with a chief complaint of bilateral leg swelling onset 1 week. Patient states he has been experiencing bilateral leg swelling as well as abdominal distention for the past week. He was sent by PCP to ED for admission, US abdomen. Patient states he is compliant with medication. Denies fever, chills, nausea, vomiting, diarrhea, headache, dizziness, chest pain. No other symptoms or modifying factors present at this ti me. Initial Vitals BP: 119/72 HR: 85 RR: 18 O2 Sat: 95% Temp: 98.3 F Past Medical history: a-fib, CAD, CHF, CVA, DM, ESRD, GERD, HLD, HTN, cardiomyopathy Past Surgical history: pacemaker Medications: Eliquis, Lasix, hydralazine, metoprolol Social History: Denies smoking, ETOH, and drug use. Allergies: NKDA lyon: volume overload HPI: Poor Historian. REVIEW OF SYSTEMS: CONSTITUTIONAL: Denies acute: fever, diaphoresis, chills, HEAD: Denies acute: headache, photophobia Eyes: Denies acute: Double vision, vision loss, eye pain, eye discharge. EARS: Denies acute: tinnitus, hearing loss, ear discharge, ear pain, THROAT: Denies acute: sore throat, swelling, difficulty swallowing , pain with swallowing, change in voice. NECK: Denies acute: neck pain, neck swelling, stiff neck. HEART: Denies acute : chest pain, palpitations, LUNGS: Denies acute: wheezing, cough, hemoptysis ABDOMEN: Denies acute: abdominal pain, Nausea, Vomiting, diarrhea, melena , hematemesis, hematochezia SKIN: Denies acute: rash, redness, lesions, itchiness. EXTREMITIES: Denies acute: calf pain, numbness, tingling, weakness, denies pain in extremity. Denies acute: Low back pain. Neuro: Denies acute: focal neurological deficit, motor or sensory focal neurological deficit, tremors, seizure like activity, confusion, dizziness, change in mental status, loss of bowel or bladder function, cauda equina like symptoms. : Denies acute: dysuria, hematuria, flank pain, increase in urinary frequency. PSYCH: Denies acute: hallucination, suicidal ideation, homicidal ideation. PHYSICAL EXAM: General: -----no---acute distress, awake and alert. Head: normocephalic, atraumatic. Neck: supple, trachea is midline, no swelling. Throat: Normal phonation. Eyes:, no erythema, no purulent discharge, no proptosis, no icterus. Heart: regular rate, regular rhythm, no significant murmur appreciated. Lungs: no apparent respiratory distress, Able to speak in full sentences. No wheezing, no rhonchi, no crackles. No stridors Clear to auscultation bilaterally. Abdomen: non tender to palpation, slightly distended, soft, no guarding, no rebound, + bowel sounds. Obese Neuro: Awake, Alert, oriented to name, self, situation, follows commands GCS=15. Speech is normal. Skin: no petechia, no purpura, no cyanosis, non-pale, not jaundice. Lower extremities: --4/4 bilateral- Pitting edema no deformity, no focal swelling, no calf TTP. Makes eye contact. moves all four extremities. Face: no apparent facial droop. Ambulating in the ED independently. ED COURSE: DISCLAIMER: This medical document was created using an electronic medical record system with voice recognition software and computerized dictation system. Although this document has been carefully reviewed, there might still be some phonetic and typographical errors. Occasional wrong-word or "sound-alike" substitutions may have occurred due to the inherent limitations of voice recognition software. Th marie areas are purely typographical due to imperfections of the software programs and do not reflect any compromise in the patient's medical care. Please read the chart carefully and recognize, using context, where these substitutions have occurred. Chief Complaint: Extremity Swelling Time Seen by MD: 11:35 Primary Care Provider: PATRICIA Reviewed Notes: Medications, Allergies Allergies: Coded Allergies: Egg-derived Products (Verified Allergy, Unknown, 08/10/15) Empagliflozin (Verified Adverse Reaction, Unknown, 11/09/24) per patient "legs collapsed 2-3 years ago and was advised by his school cook not to take it" Home Meds Active Scripts Glipizide (Glipizide) 5 Mg Tab, 1 TAB PO BID for 30 Days, #60 TAB 1 Refill Prov:BABU,MOHAMMED RESIDENT 11/10/24 Carvedilol (Carvedilol) 12.5 Mg Tab, 1 TAB PO BID for 30 Days, #60 TAB 1 Refill Prov:PUJA CARDOZA 11/10/24 Bumetanide (Bumex Tablet) 1 Mg Tab, 1 MG PO DAILY for 30 Days, #30 TAB BLK BX WARNING-CAN LEAD TO PROFOUND DIURESIS WITH FLUID- ELECTROLYTE LOSS Prov:PUJA CARDOZA 11/10/24 Spironolactone (Spironolactone) 25 Mg Tab, 1 TAB PO DAILY for 30 Days, #30 TAB Prov:PUJA CARDOZA 11/10/24 Reported Medications Isosorbide Mononitrate (Isosorbide Mononitrate Er) 30 Mg Tab, 1 TAB PO DAILY, #30 TAB 5 Refills 11/05/24 Hydralazine Hcl (Hydralazine Hcl) 50 Mg Tab, 1 TAB PO BID, #90 TAB 5 Refills 11/05/24 Potassium Chloride (POTASSIUM CHLORIDE CR) 10 Meq Tb, 1 TAB PO DAILY, #30 TAB 5 Refills 11/05/24 Amlodipine Besylate (NORVASC TABLET) 5 Mg Tb, 1 TAB PO BID, #30 TAB 5 Refills 11/05/24 Apixaban Base (ELIQUIS) 5 Mg Tab, 5 MG PO BID, TAB 11/05/24 Discontinued Reported Medications Furosemide (Furosemide) 40 Mg Tab, 1 TAB PO BID, #30 TAB 5 Refills 11/05/24 Information Source: Patient, Relative Mode of Arrival: Ambulatory Severity: Moderate Timing: Weeks Duration: Since onset Prehospital treatment: None Cardiac Risk Factors: Hyperlipidemia, HTN, Diabetes PE Risk Factors: None History of: Cardiomyopathy Modifying Factors: Nothing Past Medical History PAST MEDICAL HISTORY: AFIB, CAD, CHF, CVA, DM, ESRD, GERD, High Lipids, HTN Surgical History: Pacemaker Family History Family History: No family hx of Heart graham, No family hx of HTN Social History Smoker: Non-Smoker Alcohol: Denies ETOH Use Drugs: Denies Drug Use Lives In: Home Was a procedure done? Was a procedure done?: No CP Differential Dx Differential Diagnosis: N/A Differential Diagnosis: Other (Leg swellingDdx include but not limited to DVT, ischemic limb, pitting edema, volume overload, CHF, cellulitis, hematoma, compartment syndrome, dependent edema, venous stasis.) X-Ray, Labs, Meds, VS Vital Signs Date Time Temp Pulse Resp B/P (MAP) Pulse Ox O2 Delivery O2 Flow Rate FiO2 11/05/24 12:26 97.7 83 16 125/63 (83) 95 97.7 11/05/24 12:26 125/63 11/05/24 11:23 98.3 85 18 119/72 95 98.3 Lab Test 11/05/24 13:21 11/05/24 12:11 Range/Units Troponin I High Sensitivity 14 14 </=54 ng/L White Blood Count 3.5 L 4.4-10.8 10^3/uL Red Blood Count 4.28 L 4.5-5.90 10^6/uL Hemoglobin 12.3 L 13.5-17.5 g/dL Hematocrit 37.1 L 41.0-53.0 % Mean Corpuscular Volume 86.6 80.0-100.0 fL Mean Corpuscular Hemoglobin 28.7 28.0-32.0 pg Mean Corpuscular Hemoglobin Concent 33.1 32.0-36.0 g/dL Red Cell Distribution Width 16.7 H 11.8-14.3 % Platelet Count 126 L 140-450 10^3/uL Mean Platelet Volume 8.3 6.9-10.8 fL Neutrophils (%) (Auto) 60.1 37.0-80.0 % Lymphocytes (%) (Auto) 20.9 10.0-50.0 % Monocytes (%) (Auto) 15.1 H 0.0-12.0 % Eosinophils (%) (Auto) 2.3 0.0-7.0 % Basophils (%) (Auto) 1.6 0.0-2.0 % Neutrophils # (Auto) 2.1 1.6-8.6 10 ^3/uL Lymphocytes # (Auto) 0.7 0.4-5.4 10 ^3/uL Monocytes # (Auto) 0.5 0-1.3 10 ^3/uL Eosinophils # (Auto) 0.1 0-0.8 10 ^3/uL Basophils # (Auto) 0.1 0-0.2 10 ^3/uL Nucleated Red Blood Cells 0.0 % Sodium Level 143 136-145 mmol/L Potassium Level 3.9 3.5-5.1 mmol/L Chloride Level 104 98-107 mmol/L Carbon Dioxide Level 26 20-31 mmol/L Anion Gap 13 5-15 Blood Urea Nitrogen 23 9-23 mg/dL Creatinine 2.70 H 0.700-1.30 mg/dL Glomerular Filtration Rate Calc 24 >90 mL/min BUN/Creatinine Ratio 8.5 L 10.0-20.0 Serum Glucose 143 H 74-106 mg/dL Hemoglobin A1c 5.8 H <5.7 % A1C Calcium Level 9.1 8.7-10.4 mg/dL Phosphorus Level 3.3 2.4-5.1 mg/dL Magnesium Level 1.6 1.6-2.6 mg/dL Total Bilirubin 3.0 H 0.2-1.0 mg/dL Aspartate Amino Transferase (AST) 20 13-40 U/L Alanine Aminotransferase (ALT) 10 7-40 U/L Alkaline Phosphatase 88 46-116 U/L B-Type Natriuretic Peptide 696.71 0-100 pg/mL Total Protein 6.7 5.7-8.2 g/dL Albumin 4.3 3.2-4.8 g/dL Thyroid Stimulating Hormone (TSH) 7.38 H 0.55-4.78 uIU/mL [place] [id number] Ph: [phone] DIAGNOSTIC IMAGING Diagnostic Imaging Report : [id number] Signed PATIENT: KARYN LYON HACCT: [id number] UNIT: [id number] : 1950 LOC: ER ROOM / BED: / AGE / SEX: 74 / M ADM STATUS: REG ER SERVICE 1137 ORDERING PHYSICIAN: JOSELITO EDGAR DO PROCEDURE(s): CXRP - CHEST PORTABLE REASON: CHF ORDER NUMBER(s): [id number], ACCESSION NUMBER(s): [id number] INDICATION: CHF TECHNIQUE: Frontal view of the chest. COMPARISON: XY CHEST TWO VIEWS ROUTINE on DOS: 10/30/24, XY CHEST TWO VIEWS ROUTINE on DOS: 07/27/23, CXR2 on DOS: 03/31/22, CHEST TWO VIEWS ROUTINE on DOS: 03/31/22, CHEST TWO VIEWS ROUTINE on DOS: 07/16/20 FINDINGS: Left-sided pacemaker. Cardiomegaly. There is no evidence of pleural disease. The lungs are clear. The bony structures of the chest are intact without fracture. IMPRESSION: 1. No evidence of acute disease. ATED BY: JODIE LOZANO MD DICTATED DATE/TIME: 11/05/24 1231 SIGNED BY: JODIE LOZANO MD SIGNED DATE/TIME: 11/05/24 1231 CC: Time of 1ST Reevaluation: 12:05 Reevaluation 1ST: Unchanged Patient Education/Counseling: Diagnosis, Treatment Family Education/Counseling: Diagnosis, Treatment Comments MDM: patient presented with the above HPI.--leg swelling/--cardiac--workup was initiated. patient was found with the above mentioned diagnosis. the following medications were ordered: please refer to order lists of meds and tests obtained by myself Dr. Edgar. Patient ED course and VS have been stabilized. Patient has been reassessed in the ED and remained in a stable condition. Pertinent incidental findings were discussed with the patient and/or family. Patient/family voices understanding and is agreeable with plan. Patient has been observed in the ED adequate length of time to insure improvement/stability. Escalation of care considered: Consideration of escalation to observation or admission Patient was ADMITTED to the medicine team for further evaluation and treatment of their presentation. All the reports of any imaging studies that were ordered by myself were reviewed by myself. Departure 1 Departure Time of Disposition: 12:48 Impression: Primary Impression: Volume overload Additional Impressions: Bilateral edema of lower extremity Acute renal insufficiency Disposition: ADMITTED INPATIENT Admit to: Tele Condition: Guarded e-Prescriptions Glipizide (Glipizide) 5 Mg Tab 1 TAB PO BID for 30 Days, #60 TAB 1 Refill Prov: FRANCIS CARDOZA 11/10/24 Carvedilol (Carvedilol) 12.5 Mg Tab 1 TAB PO BID for 30 Days, #60 TAB 1 Refill Prov: FRANCIS CARDOZA RESIDENT 11/10/24 Bumetanide (Bumex Tablet) 1 Mg Tab 1 MG PO DAILY for 30 Days, #30 TAB BLK BX WARNING-CAN LEAD TO PROFOUND DIURESIS WITH FLUID- ELECTROLYTE LOSS Prov: FRANCIS CARDOZA RESIDENT 11/10/24 Spironolactone (Spironolactone) 25 Mg Tab 1 TAB PO DAILY for 30 Days, #30 TAB Prov: FRANCIS CARDOZA RESIDENT 11/10/24 Discharged With: Self Critical Care Note Critical Care Time?: Yes (45 min-critical care time only) Heart Score Heart Score: Heart Score Response (Comments) Value History Slightly Suspicious 0 EKG Normal 0 Age >65 2 Risk Factors >3 or Hx ASHD 2 Troponin Normal limit 0 Total 4 I personally scribed for JOSELITO EDGAR DO ([email or web address]) on 11/05/24 at 11:54. Electronically submitted by Lolis Hein ([email or web address]). I personally scribed for JOSELITO EDGAR DO ([email or web address]) on 11/05/24 at 12:36. Electronically submitted by Lolis Hein ([email or web address]). JOSELITO EDGAR DO Nov 05, 2024 11:54
[2024-11-05] MEDS: FUROSEMIDE 100 MG/10ML VIAL IV ONE ×2 (12:26→14:30)
[2024-11-05 12:28] LABS: Hematocrit 37.1 % (41.0-53.0); Hemoglobin 12.3 g/dL (13.5-17.5); Mean Corpuscular Hemoglobin 28.7 pg (28.0-32.0); Mean Corpuscular Volume 86.6 fL (80.0-100.0); Nucleated Red Blood Cells % 0.0 %
--- NOTE | 2024-11-05 12:33 | DVH ---
INDICATION: CHF TECHNIQUE: Frontal view of the chest. COMPARISON: XY CHEST TWO VIEWS ROUTINE on DOS: 10/30/24, XY CHEST TWO VIEWS ROUTINE on DOS: 07/27/23, C XR2 on DOS: 03/31/22, CHEST TWO VIEWS ROUTINE on DOS: 03/31/22, CHEST TWO VIEWS ROUTINE on DOS: 07/16/20 FINDINGS: Left-sided pacemaker. Cardiomegaly. There is no evidence of pleural disease. The lungs are clear. The bony structures of the chest are intact without fracture. IMPRESSION: 1. No evidence of acute disease.
[2024-11-05 12:48] LABS: Alanine Aminotransferase 10 U/L (7-40); Albumin 4.3 g/dL (3.2-4.8); Alkaline Phosphatase 88 U/L (46-116); Anion Gap 13 (5-15); BUN/Creatinine Ratio 8.5 (10.0-20.0); Bilirubin, Total 3.0 mg/dL (0.2-1.0); Blood Urea Nitrogen 23 mg/dL (9-23); Calcium 9.1 mg/dL (8.7-10.4); Carbon Dioxide 26 mmol/L (20-31); Chloride 104 mmol/L (98-107); Glucose 143 mg/dL (74-106); Potassium 3.9 mmol/L (3.5-5.1); Sodium 143 mmol/L (136-145); Total Protein 6.7 g/dL (5.7-8.2)
[2024-11-05] MEDS ORDERED: ACETAMINOPHEN 325 MG TAB PO PRN (14:30)
--- NOTE | 2024-11-05 14:31 | DVHHP2 ---
History of Present Illness History of Present Illness Patient is 74 years old male with past medical history of hypertension, diabetes mellitus type 2, hyperlipidemia, CKD, atrial fibrillation on Eliquis, on pacemaker, CHF, GERD, CVA, cardiomyopathy came with a complaint of bilateral leg swelling. As per patient he has leg swelling for a while but which got worse over the last 1 week. Also patient reported his abdomen and scrotum and pain is also getting swollen over last 1 and half week. Patient denied any acute chest pain, palpitation, diarrhea, oliguria, cough, dysarthria, dysuria. Initial lab workup revealed WBC 3.5, hemoglobin 12.3, platelet 126, serum creatinine 2.70, GFR 24, blood sugar 143, BNP 696, chest x-ray cardiomegaly. PMH-hypertension, diabetes mellitus type 2, hyperlipidemia, CKD, atrial fibrillation on Eliquis, on pacemaker, CHF, GERD, CVA, cardiomyopathy PSH- pacemaker Allergy- egg derived products Personal History/ Social History-patient did not smoking/substance abuse, occasional alcoholic, lives alone Review of other system Cardiovascular- deny acute chest pain or shortness of breath or cough or palpitation Respiratory denies cough or short of breath or wheezing Gastrointestinal- denies any rectal bleeding, nausea or vomiting Musculoskeletal-denies acute joint tenderness or redness Neurological- denies acute dysarthria, dysphagia, change in vision Psychiatry- denies depression or SI or HI Skin- denies acute rash or purpura Review of Systems Allergies: Coded Allergies: Egg-derived Products (Verified Allergy, Unknown, 08/10/15) Medications Current Medications Medications Dose Ordered Sig/Mal Route Start Time Stop Time Status Last Admin Dose Admin Sodium Chloride 10 ml Q8HR IV 11/05/24 22:00 UNV Acetaminophen 650 mg Q6HP PRN PO 11/05/24 14:30 UNV Exam Vital Signs Vital Signs Date Time Temp Pulse Resp B/P (MAP) Pulse Ox O2 Delivery O2 Flow Rate FiO2 11/05/24 12:26 97.7 83 16 125/63 (83) 95 97.7 Exam General examination- awake, alert, oriented HEENT- PEERLA, no acute nasal discharge Cardiovascular- S1-S2 audible, rate and rhythm regular, no murmur Respiratory- CTAB, no wheeze or rhonchi Gastrointestinal-abdomen swollen, distended likely has ascites, bowel sound+. Nondistended Musculoskeletal-no acute joint swelling or tenderness or redness Lower extremity- bilateral leg swelling+++ Neurological- cranial nerves intact, no acute dysarthria or dysphagia Psychiatry- denies depression or SI or HI Skin- no acute rash or purpura Labs/Xrays Labs Test 11/05/24 13:21 11/05/24 12:11 Range/Units Troponin I High Sensitivity 14 </=54 ng/L White Blood Count 3.5 L 4.4-10.8 10^3/uL Red Blood Count 4.28 L 4.5-5.90 10^6/uL Hemoglobin 12.3 L 13.5-17.5 g/dL Hematocrit 37.1 L 41.0-53.0 % Mean Corpuscular Volume 86.6 80.0-100.0 fL Mean Corpuscular Hemoglobin 28.7 28.0-32.0 pg Mean Corpuscular Hemoglobin Concent 33.1 32.0-36.0 g/dL Red Cell Distribution Width 16.7 H 11.8-14.3 % Platelet Count 126 L 140-450 10^3/uL Mean Platelet Volume 8.3 6.9-10.8 fL Neutrophils (%) (Auto) 60.1 37.0-80.0 % Lymphocytes (%) (Auto) 20.9 10.0-50.0 % Monocytes (%) (Auto) 15.1 H 0.0-12.0 % Eosinophils (%) (Auto) 2.3 0.0-7.0 % Basophils (%) (Auto) 1.6 0.0-2.0 % Neutrophils # (Auto) 2.1 1.6-8.6 10 ^3/uL Lymphocytes # (Auto) 0.7 0.4-5.4 10 ^3/uL Monocytes # (Auto) 0.5 0-1.3 10 ^3/uL Eosinophils # (Auto) 0.1 0-0.8 10 ^3/uL Basophils # (Auto) 0.1 0-0.2 10 ^3/uL Nucleated Red Blood Cells 0.0 % Sodium Level 143 136-145 mmol/L Potassium Level 3.9 3.5-5.1 mmol/L Chloride Level 104 98-107 mmol/L Carbon Dioxide Level 26 20-31 mmol/L Anion Gap 13 5-15 Blood Urea Nitrogen 23 9-23 mg/dL Creatinine 2.70 H 0.700-1.30 mg/dL Glomerular Filtration Rate Calc 24 >90 mL/min BUN/Creatinine Ratio 8.5 L 10.0-20.0 Serum Glucose 143 H 74-106 mg/dL Calcium Level 9.1 8.7-10.4 mg/dL Total Bilirubin 3.0 H 0.2-1.0 mg/dL Aspartate Amino Transferase (AST) 20 13-40 U/L Alanine Aminotransferase (ALT) 10 7-40 U/L Alkaline Phosphatase 88 46-116 U/L B-Type Natriuretic Peptide 696.71 0-100 pg/mL Total Protein 6.7 5.7-8.2 g/dL Albumin 4.3 3.2-4.8 g/dL SEPSIS Sepsis Screen Date sepsis recognized/suspect: Nov 05, 2024 Time Sepsis recognized/suspect: 1124 Recent Procedure: No On Antibiotic Therapy: No Respiratory Rate >20: No Heart Rate >90: No Temp<36 C (96.8 F) or >38.3 C: No SBP <90 or MAP <65 mmHG: No New Acute Mental Status Change: No Is the patient on CPAP, BIPAP,: No Physician Orders Rig Welder (11/05/24 ) Chest Portable (11/05/24 11:37) Electrocardigram (11/05/24 11:37) Troponin-I Hs (11/05/24 14:37) Admit (11/05/24 14:24) Allergies (11/05/24 14:24) Code Status (11/05/24 14:24) Renal Standard(2gna,3gk,Lopho) (11/05/24 Dinner) Sodium Chloride Lock (Saline Lock Ns) (11/05/24 22:00) Complete Blood Count (11/06/24 04:00) Comprehensive Metabolic Panel (11/06/24 04:00) Cardiac Diet-2gna,Lofat,Lochol (11/05/24 Dinner) Echo 2d Mode Cardiac Dop (11/05/24 14:24) Condition: Unstable (11/05/24 14:24) Acetaminophen Tablet (Tylenol Tablet) (11/05/24 14:30) Stat Ekg For Chest Pain (11/05/24 14:24) Notify Md Of Changes From Base (11/05/24 14:24) Clerical Stock Inspector For 24 Hours (11/05/24 14:24) Carvedilol Tablet (Coreg Tablet) (11/05/24 22:00) Pantoprazole Tablet (Protonix Tablet) (11/06/24 10:00) (Nf) Febuxostat (Uloric) (11/06/24 10:00) Apixaban (Eliquis) (11/05/24 22:00) Furosemide Injection (Lasix Injection) (11/05/24 14:30) Furosemide Injection (Lasix Injection) (11/05/24 18:00) Isosorbide Mononitrate Tablet (Imdur Er (11/06/24 10:00) Vital Signs Date Time Temp Pulse Resp B/P (MAP) Pulse Ox O2 Delivery O2 Flow Rate FiO2 11/05/24 12:26 97.7 83 16 125/63 (83) 95 97.7 11/05/24 12:26 125/63 11/05/24 11:23 98.3 85 18 119/72 95 98.3 Laboratory Tests Test 11/05/24 12:11 White Blood Count 3.5 10^3/uL (4.4-10.8) L Medications Medications Dose Ordered Sig/Mal Route Start Time Stop Time Status Last Admin Dose Admin Furosemide 60 mg ONCE ONCE IV 11/05/24 11:45 11/05/24 11:46 DC 11/05/24 12:26 60 MG Assessment/Plan Assessment/Plan Assessment and plan #Acute on chronic heart failure systolic versus diastolic # bilateral leg swelling likely due to CHF/DVT # cardiomyopathy # anasarca -continue Eliquis 5 mg p.o. b.i.d. -continue Lasix 40 mg IV b.i.d. -resumed home medication carvedilol # CONSTANCE on CKD likely due to VMN # CKD stage III -avoid dehydration and nephrotoxic drugs # hypertension with heart failure -resume home medication carvedilol 3.125 mg p.o. b.i.d. -Lasix 40 mg IV b.i.d. -monitor blood pressure # diabetes mellitus type 2 -ordered insulin Lantus and lispro # hyperlipidemia # CAD # atrial fibrillation, on pacemaker -resume home medication Eliquis -resumed home medication carvedilol -atorvastatin 40 mg p.o. q.h.s. # GERD -continue pantoprazole # thrombocytopenia under re-evaluate -monitor CBC Goals of care, Code status full; discussed with >15 minutes PUD prophylaxis: Pantoprazole DVT prophylaxis: Eliquis Plan discussed with Dr. Elizabeth , nursing staff, Total time spent on patient evaluation, chart review, assessment and plan, discussion discussion >35 minutes Plan discussed with: Patient, Other (EKG) My Orders Orders - FRANCIS CARDOZA RESIDENT Procedure Category Date Status Time Admit ADMIT 11/05/24 Transmitted 14:24 Allergies ADRIAN 11/05/24 In Process 14:24 Code Status CODE 11/05/24 Transmitted 14:24 Renal DIET 11/05/24 Transmitted Standard(2gna,3gk,Lopho) Dinner Sodium Chloride Lock PHA 11/05/24 Logged (Saline Lock Ns) 22:00 Complete Blood Count LAB 11/06/24 Verified 04:00 Comprehensive LAB 11/06/24 Verified Metabolic Panel 04:00 Cardiac DIET 11/05/24 Transmitted Diet-2gna,Lofat,Lochol Dinner Echo 2d Mode Cardiac US 11/05/24 Logged DOP 14:24 Condition: Unstable ADRIAN 11/05/24 In Process 14:24 Acetaminophen Tablet PHA 11/05/24 Logged (Tylenol Tablet) 14:30 Stat Ekg For Chest ADRIAN 11/05/24 In Process Pain 14:24 Notify Of Changes ADRIAN 11/05/24 In Process From Base 14:24 Clerical Stock Inspector For [facility] 11/05/24 In Process 24 Hours 14:24 Carvedilol Tablet PHA 11/05/24 Transmitted (Coreg Tablet) 22:00 Pantoprazole Tablet PHA 11/06/24 Transmitted (Protonix Tablet) 10:00 (Nf) Febuxostat PHA 11/06/24 Transmitted (Uloric) 10:00 Apixaban (Eliquis) PHA 11/05/24 Transmitted 22:00 Furosemide Injection PHA 11/05/24 Transmitted (Lasix Injection) 14:30 Furosemide Injection PHA 11/05/24 Transmitted (Lasix Injection) 18:00 Isosorbide PHA 11/06/24 Transmitted Mononitrate Tablet 10:00 Date of Service: Nov 05, 2024 Billing Provider: FINESSE ELIZABETH MD Common Visit Codes: 24885-LGKFMSS INP/OBS CARE (HIGH) Secondary Visit Codes: 89330-[id number] CARE PLAN 30 MINUTES FRANCIS CARDOZA RESIDENT Nov 05, 2024 14:31
[2024-11-05] MEDS ORDERED: ALBUTEROL SULF 2.5 MG/0.5ML(0.5%) NEB SOLN NEB PRN (14:45)
[2024-11-05] MEDS ORDERED: IPRATROPIUM BROM 0.5 MG/2.5ML INH SOL NEB PRN (14:45)
[2024-11-05 15:24] LABS: Magnesium 1.6 mg/dL (1.6-2.6)
--- NOTE | 2024-11-05 15:33 | DVH ---
INDICATION: Abdominal swelling TECHNIQUE: Multiple real-time sonographic images of the abdomen were obtained. COMPARISON: US ABDOMEN COMPLETE SONOGRAM on DOS: 06/21/22, ABDOMEN COMPLETE SONOGRAM on DOS: 07/27/20 FINDINGS: Liver is heterogeneous. 3 cm right renal cyst. There is a 6 cm hypoechoic mass. MRI liver mass protocol recommended. The gallbladder wall measures 0.3 cm and is unremarkable. . The common duct measures 0.5 cm and is unremarkable. No pericholecystic fluid is noted. The right kidney measures 11cm. No hydronephrosis. The left kidney measures 10cm. No hydronephrosis . The pancreas is not well visualized due to obscuration from bowel gas. The visualized portions of the IVC and aorta are grossly unremarkable. IMPRESSION: There is a 6 cm hypoechoic mass. MRI liver mass protocol recommended. Gallstones
--- NOTE | 2024-11-05 15:37 | DVH ---
BILATERAL LOWER EXTREMITY VENOUS DUPLEX REASON FOR EXAMINATION: Bilateral leg swelling X1 week COMPARISON: None TECHNIQUE: Using real-time freeze-frame technique with a high-frequency transducer, multiple longitu dinal and transverse sections were obtained. Simultaneous color flow and spectral Doppler imaging wa s performed. FINDINGS: There is good visualization of the deep venous system with no intraluminal filling defects identified. Normal venous compressibility is seen and there is flow augmentation. Color flow Doppler imaging is unremarkable. There is subcutaneous soft tissue edema diffusely in both lower extremities. IMPRESSION: NO EVIDENCE OF DEEP VENOUS THROMBOSIS.
[2024-11-05 16:19] VITALS: BP 154/64; PULSE 81; RESP 12; TEMP 97.6; O2SAT 96
[2024-11-05 16:32] VITALS: BP 125/63; PULSE 83; RESP 16; TEMP 97.7; O2SAT 95
[2024-11-05 17:00] VITALS: BP 154/64; PULSE 89; RESP 18; TEMP 97.6; O2SAT 97
[2024-11-05] MEDS: InsuLIN REG 1unit/0.01ml Soln (100units/ml) SC SCH (17:00)
[2024-11-05 17:41] LABS: Chloride 105 mmol/L (98-107); Potassium 3.8 mmol/L (3.5-5.1); Sodium 144 mmol/L (136-145)
[2024-11-05 17:42] LABS: Anion Gap 13 (5-15); Calcium 9.0 mg/dL (8.7-10.4); Carbon Dioxide 26 mmol/L (20-31)
[2024-11-05 17:47] LABS: BUN/Creatinine Ratio 10.9 (10.0-20.0)
[2024-11-05] MEDS: FUROSEMIDE 40 MG/4 ML VIAL IV SCH (17:57)
[2024-11-05 18:17] LABS: Blood Urea Nitrogen 29 mg/dL (9-23); Glucose 133 mg/dL (74-106)
[2024-11-05 19:39] VITALS: O2SAT 97
[2024-11-05] MEDS ORDERED: FURO40TA4 PO (20:02)
[2024-11-05] MEDS ORDERED: GLIP5TAB21 PO (20:02)
[2024-11-05] MEDS ORDERED: AML5T PO (20:02)
[2024-11-05] MEDS ORDERED: POTA-36 PO (20:02)
[2024-11-05] MEDS ORDERED: ISOS1TAB28 PO (20:02)
[2024-11-05] MEDS ORDERED: HYDR50TA47 PO (20:02)
[2024-11-05] MEDS ORDERED: CARV6.2517 PO (20:02)
[2024-11-05] MEDS ORDERED: APIX5TAB PO (20:02)
[2024-11-05 20:07] VITALS: PULSE 84; RESP 18; O2SAT 98
[2024-11-05 21:00] VITALS: BP 159/75; PULSE 85; RESP 17; TEMP 97.7; O2SAT 94
[2024-11-05] MEDS: SODIUM CHLOR 0.9% PF (SALINE LOCK) 10ML VIAL/SYR IV SCH (21:21)
[2024-11-05] MEDS: CARVEDILOL 12.5 MG TAB PO SCH (21:25)
[2024-11-05] MEDS: APIXABAN 5 MG TAB PO SCH (21:25)
[2024-11-06] VITALS (11 sets, daily range): BP systolic 99–159; BP diastolic 60–81; PULSE 60–84; RESP 16–19; TEMP 97.2–98.6; O2SAT 93–98
[2024-11-06 07:06] LABS: Alanine Aminotransferase 10 U/L (7-40); Albumin 4.1 g/dL (3.2-4.8); Alkaline Phosphatase 79 U/L (46-116); Anion Gap 12 (5-15); Calcium 9.0 mg/dL (8.7-10.4); Carbon Dioxide 23 mmol/L (20-31); Chloride 105 mmol/L (98-107); Potassium 3.7 mmol/L (3.5-5.1); Sodium 140 mmol/L (136-145); Total Protein 6.4 g/dL (5.7-8.2)
[2024-11-06 07:11] LABS: Glucose 110 mg/dL (74-106)
[2024-11-06 07:17] LABS: Hematocrit 34.3 % (41.0-53.0); Hemoglobin 11.7 g/dL (13.5-17.5); Mean Corpuscular Hemoglobin 29.4 pg (28.0-32.0); Mean Corpuscular Volume 86.4 fL (80.0-100.0); Nucleated Red Blood Cells % 0.4 %
[2024-11-06 07:30] LABS: BUN/Creatinine Ratio 8.5 (10.0-20.0); Bilirubin, Total 2.7 mg/dL (0.2-1.0); Blood Urea Nitrogen 20 mg/dL (9-23)
[2024-11-06] MEDS: MAGNESIUM SULFATE 1GM/100ML 100 ML IV SCH (07:59)
[2024-11-06] MEDS: INSULIN LANTUS (GLARGINE) 1 /0.01ml (100units/ml) SC SCH (09:24)
[2024-11-06] MEDS: PANTOPRAZOLE 40 MG TAB PO SCH (09:30)
[2024-11-06] MEDS: ISOSORBIDE MONONITRATE ER 60 MG TAB PO SCH (09:30)
[2024-11-06] MEDS: FUROSEMIDE 100 MG/10ML VIAL IV ONE (10:50)
[2024-11-06] MEDS ORDERED: FUROSEMIDE 100 MG/10ML VIAL IV ONE (11:45)
--- NOTE | 2024-11-06 13:01 | DVHPNRES ---
Progress Note Date Seen: Nov 06, 2024 Resident Creating Document: FRANCIS CARDOZA RESIDENT Medical Necessity Reason Pt with a Central, PICC or Fol: No Subjective Review of Systems Patient is 74 years old male with past medical history of hypertension, diabetes mellitus type 2, hyperlipidemia, CKD, atrial fibrillation on Eliquis, on pacemaker, CHF, GERD, CVA, cardiomyopathy came with a complaint of bilateral leg swelling. As per patient he has leg swelling for a while but which got worse over the last 1 week. Also patient reported his abdomen and scrotum and pain is also getting swollen over last 1 and half week. Patient denied any acute chest pain, palpitation, diarrhea, oliguria, cough, dysarthria, dysuria. Initial lab workup revealed WBC 3.5, hemoglobin 12.3, platelet 126, serum creatinine 2.70, GFR 24, blood sugar 143, BNP 696, chest x-ray cardiomegaly. Lower extremity Doppler study negative for DVT, ultrasound of the liver revealed- There is a 6 cm hypoechoic mass. MRI liver mass protocol recommended. Gallstones PMH-hypertension, diabetes mellitus type 2, hyperlipidemia, CKD, atrial fibrillation on Eliquis, on pacemaker, CHF, GERD, CVA, cardiomyopathy PSH- pacemaker Allergy- egg derived products Personal History/ Social History-patient did not smoking/substance abuse, occasional alcoholic, lives alone Review of other system Cardiovascular- deny acute chest pain or shortness of breath or cough or palpitation Respiratory denies cough or short of breath or wheezing Gastrointestinal- denies any rectal bleeding, nausea or vomiting Musculoskeletal-denies acute joint tenderness or redness Neurological- denies acute dysarthria, dysphagia, change in vision Psychiatry- denies depression or SI or HI Skin- denies acute rash or purpura Patient was seen today at bedside. Labs and chart reviewed. No acute shortness of breaths. Patient with a persistent leg swelling+++, on Lasix IV. ultrasound of the liver revealed- There is a 6 cm hypoechoic mass. Gallstones, patient's hepatic mass lesion likely old cystic lesion as per previous record. Objective vital signs Vital Sign Date Time Temp Pulse Resp B/P (MAP) Pulse Ox O2 Delivery O2 Flow Rate FiO2 11/06/24 10:50 112/70 11/06/24 10:31 68 11/06/24 10:00 96 Room Air 0.0 11/06/24 10:00 21 11/06/24 09:00 97.8 19 97.8 Total Intake and Output 11/05/24 11/05/24 11/06/24 15:00 23:00 07:00 Intake Total 450 ml 350 ml Balance 450 ml 350 ml medications Current Medications Medications Dose Ordered Sig/Mal Route Start Time Stop Time Status Last Admin Dose Admin Sodium Chloride 10 ml Q8HR IV 11/05/24 22:00 11/06/24 05:08 10 ML Acetaminophen 650 mg Q6HP PRN PO 11/05/24 14:30 Carvedilol 12.5 mg BID PO 11/05/24 22:00 11/06/24 09:31 12.5 MG Pantoprazole Sodium 40 mg DAILY PO 11/06/24 10:00 11/06/24 09:30 40 MG Patient Own Medication 1 tab DAILY PO 11/06/24 10:00 Apixaban 5 mg BID PO 11/05/24 22:00 11/06/24 09:30 5 MG Isosorbide Mononitrate 30 mg DAILY PO 11/06/24 10:00 11/06/24 09:30 30 MG Albuterol 2.5 mg Q6HPRN PRN NEB 11/05/24 14:45 Ipratropium [place] 0.5 mg Q6HPRN PRN NEB 11/05/24 14:45 Insulin Glargine 10 units DAILY@1000 SC 11/06/24 10:00 Insulin Human Regular 4 units AC SC 11/05/24 17:00 Examination General examination- awake, alert, oriented HEENT- PEERLA, no acute nasal discharge Cardiovascular- S1-S2 audible, rate and rhythm regular, no murmur Respiratory- CTAB, no wheeze or rhonchi Gastrointestinal-abdomen swollen, distended likely has ascites, bowel sound+. Nondistended Musculoskeletal-no acute joint swelling or tenderness or redness Lower extremity- bilateral leg swelling+++ Neurological- cranial nerves intact, no acute dysarthria or dysphagia Psychiatry- denies depression or SI or HI Skin- no acute rash or purpura laboratory and microbiology Laboratory Tests 11/06/24 05:19 Test 11/06/24 05:19 Range/Units Serum Glucose 110 H 74-106 mg/dL Problem List/Assessment/Plan Problem List/Assessment/Plan Assessment and plan #Acute on chronic heart failure systolic versus diastolic # bilateral leg swelling likely due to CHF/DVT # cardiomyopathy # anasarca -continue Eliquis 5 mg p.o. b.i.d. -patient had Lasix 80 mg IV once today, we will keep eye on the urine output and go from there -resumed home medication carvedilol # CONSTANCE on CKD likely due to cardiorenal syndrome # CKD stage III -avoid dehydration and nephrotoxic drugs # hypertension with heart failure -resume home medication carvedilol 3.125 mg p.o. b.i.d. -patient had Lasix 80 mg IV once today, we will keep eye on the urine output and go from there -monitor blood pressure # diabetes mellitus type 2 -ordered insulin Lantus and lispro # hyperlipidemia # CAD # atrial fibrillation, on pacemaker -resume home medication Eliquis -resumed home medication carvedilol -atorvastatin 40 mg p.o. q.h.s. # suspected liver mass likely cystic lesion # gallstone # hepatic steatosis # - ultrasound of the liver revealed- There is a 6 cm hypoechoic mass. Gallstones- patient to follow up outpatient with the primary care physician/relief cook for further evaluation and # GERD -continue pantoprazole #Pancytopenia likely due suspected underlying liver due # thrombocytopenia under re-evaluate -no acute sign or symptom of -monitor CBC Goals of care, Code status full code full; discussed with >15 minutes PUD prophylaxis: Pantoprazole DVT prophylaxis: Eliquis Plan discussed with Dr. Michaels , nursing staff, Total time spent on patient evaluation, chart review, assessment and plan, discussion discussion >35 minutes Plan discussed with: Patient, Other (EKG) Plan discussed with: Patient, Other (RN) My Orders My Orders Orders - FRANCIS CARDOZA RESIDENT Procedure Category Date Status Time Admit ADMIT 11/05/24 Transmitted 14:24 Allergies ADRIAN 11/05/24 In Process 14:24 Code Status CODE 11/05/24 Transmitted 14:24 Renal DIET 11/05/24 Transmitted Standard(2gna,3gk,Lopho) Dinner Sodium Chloride Lock PHA 11/05/24 In Process (Saline Lock Ns) 22:00 Cardiac DIET 11/05/24 Transmitted Diet-2gna,Lofat,Lochol Dinner Condition: Unstable ADRIAN 11/05/24 In Process 14:24 Acetaminophen Tablet PHA 11/05/24 In Process (Tylenol Tablet) 14:30 Stat Ekg For Chest ADRIAN 11/05/24 In Process Pain 14:24 Notify Of Changes ADRIAN 11/05/24 In Process From Base 14:24 Securities Counselor For ADRIAN 11/05/24 In Process 24 Hours 14:24 Carvedilol Tablet PHA 11/05/24 In Process (Coreg Tablet) 22:00 Pantoprazole Tablet PHA 11/06/24 In Process (Protonix Tablet) 10:00 (Nf) Febuxostat PHA 11/06/24 In Process (Uloric) 10:00 Apixaban (Eliquis) PHA 11/05/24 In Process 22:00 Isosorbide PHA 11/06/24 In Process Mononitrate Tablet 10:00 Bilat Lower Dvt US 11/05/24 Resulted 14:29 Abdomen Complete US 11/05/24 Resulted Sonogram 14:29 Urinalysis LAB 11/06/24 Logged 04:00 Urine Sodium LAB 11/05/24 Logged 14:33 Albuterol Medneb PHA 11/05/24 In Process (Ventolin Medneb) 14:45 Ipratropium Medneb PHA 11/05/24 In Process (Atrovent Medneb) 14:45 Strict I & O ADRIAN 11/05/24 In Process 14:34 Insulin Lantus PHA 11/06/24 In Process (Glargine) (Lantus) 10:00 Insulin R (Human) PHA 11/05/24 In Process (Insulin R) 17:00 Electrocardigram EKG 11/05/24 Logged 14:38 Daily Weight ADRIAN 11/05/24 In Process 20:51 Urine LAB 11/05/24 Logged Protein/Creatinine 14:33 Urine Creatinine LAB 11/06/24 Logged 07:06 Echo 2d Mode Cardiac US 11/06/24 Logged DOP 14:24 FRANCIS CARDOZA RESIDENT Nov 06, 2024 13:01
[2024-11-07] VITALS (11 sets, daily range): BP systolic 125–143; BP diastolic 45–65; PULSE 59–85; RESP 16–19; TEMP 97.5–97.8; O2SAT 93–99
[2024-11-07 06:17] LABS: Hematocrit 35.0 % (41.0-53.0); Hemoglobin 11.8 g/dL (13.5-17.5); Mean Corpuscular Hemoglobin 28.8 pg (28.0-32.0); Mean Corpuscular Volume 85.6 fL (80.0-100.0); Nucleated Red Blood Cells % 0.1 %
[2024-11-07 06:36] LABS: Alanine Aminotransferase 10 U/L (7-40); Albumin 3.7 g/dL (3.2-4.8); Alkaline Phosphatase 77 U/L (46-116); Anion Gap 15 (5-15); BUN/Creatinine Ratio 9.5 (10.0-20.0); Calcium 9.0 mg/dL (8.7-10.4); Carbon Dioxide 24 mmol/L (20-31); Chloride 103 mmol/L (98-107); Glucose 80 mg/dL (74-106); Magnesium 1.7 mg/dL (1.6-2.6); Sodium 142 mmol/L (136-145); Total Protein 5.9 g/dL (5.7-8.2)
[2024-11-07 06:38] LABS: Bilirubin, Total 2.8 mg/dL (0.2-1.0); Blood Urea Nitrogen 23 mg/dL (9-23); Potassium 3.3 mmol/L (3.5-5.1)
[2024-11-07] MEDS: POTASSIUM CHL 20 Meq TABLET PO ONE (08:55)
[2024-11-07] MEDS: MAGNESIUM SULFATE 1GM/100ML 100 ML IV ONE (11:24)
--- NOTE | 2024-11-07 14:13 | DVHSR ---
APPROVED REPORT EXAM: Two-dimensional and M-mode echocardiogram with Doppler and color Doppler. Blood Pressure: 136/73 mmHg INDICATION Heart Failure RISK FACTORS Height: 5'6", Weight: 230 DIMENSIONS LVDd4.7 (3.8-5.7cm)LA (2D)4.5 (1.9-4.0cm)Aortic Root2.8 (2.0-3.7cm) LVDs4.2 (2.5-4.0cm)LA (MM) (1.9-4.0cm)Aortic Cusp Exc1.9 (1.5-2.0cm) EF (%) 25.0 (55-70%)Rt. Atrium4.9 (1.9-4.0cm)Asc. Aorta2.9 cm IVSd1.0 (0.7-1.1cm)RV (D)5.4 (1.8-2.4cm) PWd1.1 (0.7-1.1cm) Mitral Valve MitralMitral Stenosis E wave0.73m/sMV Mean GR.mmHg A wave0.24m/sMV Peak GR.mmHg E/A ratio3.02D MVAcm2 DECEL [id number] 1/2 Timems Aortic Valve Aortic ValveAortic Stenosis V10.69m/Foster Mean GR.2mmHg V20.93m/Foster Peak GR.3mmHg LVOT Diameter1.9 (1.8-2.4cm)Doppler AVA2.10cm2 Pulmonic Valve V20.58m/s Tricuspid Valve TR Velocity2.25m/s [id number] Conclusion DILATED ALL CARDIAC CHAMBERS LV EF IS ONLY 20% MILD POSTERIOR PERICARDIAL EFFUSION IT IS END STAGE DILATED CARDIOMYOPATHY
--- NOTE | 2024-11-07 14:36 | DVHPNRES ---
Progress Note Date Seen: Nov 07, 2024 Resident Creating Document: FRANCIS CARDOZA RESIDENT Medical Necessity Reason Pt with a Central, PICC or Fol: No Subjective Review of Systems Patient is 74 years old male with past medical history of hypertension, diabetes mellitus type 2, hyperlipidemia, CKD, atrial fibrillation on Eliquis, on pacemaker, CHF, GERD, CVA, cardiomyopathy came with a complaint of bilateral leg swelling. As per patient he has leg swelling for a while but which got worse over the last 1 week. Also patient reported his abdomen and scrotum and pain is also getting swollen over last 1 and half week. Patient denied any acute chest pain, palpitation, diarrhea, oliguria, cough, dysarthria, dysuria. Initial lab workup revealed WBC 3.5, hemoglobin 12.3, platelet 126, serum creatinine 2.70, GFR 24, blood sugar 143, BNP 696, chest x-ray cardiomegaly. Lower extremity Doppler study negative for DVT, ultrasound of the liver revealed- There is a 6 cm hypoechoic mass. MRI liver mass protocol recommended. Gallstones PMH-hypertension, diabetes mellitus type 2, hyperlipidemia, CKD, atrial fibrillation on Eliquis, on pacemaker, CHF, GERD, CVA, cardiomyopathy PSH- pacemaker Allergy- egg derived products Personal History/ Social History-patient did not smoking/substance abuse, occasional alcoholic, lives alone Review of other system Cardiovascular- deny acute chest pain or shortness of breath or cough or palpitation Respiratory denies cough or short of breath or wheezing Gastrointestinal- denies any rectal bleeding, nausea or vomiting Musculoskeletal-denies acute joint tenderness or redness Neurological- denies acute dysarthria, dysphagia, change in vision Psychiatry- denies depression or SI or HI Skin- denies acute rash or purpura Patient was seen today at bedside. Labs and chart reviewed. Patient reports feeling better today, leg edema is improving. No acute distress. Echo 2D revealed LVEF 20%. Plan is to do GDM T. after three-month we will consider about AICD/life vest. Echo 2D revealed dilated all cardiac chambers, LVEF 20%, mild posterior pericardial effusion. End stage cardiomyopathy. Objective vital signs Vital Sign Date Time Temp Pulse Resp B/P (MAP) Pulse Ox O2 Delivery O2 Flow Rate FiO2 11/07/24 12:40 97.8 63 19 139/52 (81) 94 97.8 11/07/24 09:38 Room Air 0.0 11/07/24 09:38 21 Total Intake and Output 11/06/24 11/06/24 11/07/24 15:00 23:00 07:00 Intake Total 1850 ml 800 ml Output Total 150 ml 200 ml Balance 1700 ml 600 ml medications Current Medications Medications Dose Ordered Sig/Mal Route Start Time Stop Time Status Last Admin Dose Admin Sodium Chloride 10 ml Q8HR IV 11/05/24 22:00 11/07/24 12:58 10 ML Acetaminophen 650 mg Q6HP PRN PO 11/05/24 14:30 Carvedilol 12.5 mg BID PO 11/05/24 22:00 11/07/24 08:55 12.5 MG Pantoprazole Sodium 40 mg DAILY PO 11/06/24 10:00 11/07/24 08:55 40 MG Patient Own Medication 1 tab DAILY PO 11/06/24 10:00 Apixaban 5 mg BID PO 11/05/24 22:00 11/07/24 08:55 5 MG Isosorbide Mononitrate 30 mg DAILY PO 11/06/24 10:00 11/07/24 08:54 30 MG Albuterol 2.5 mg Q6HPRN PRN NEB 11/05/24 14:45 Ipratropium [place] 0.5 mg Q6HPRN PRN NEB 11/05/24 14:45 Insulin Glargine 10 units DAILY@1000 [place] 11/06/24 10:00 11/07/24 10:06 10 UNITS Insulin Human Regular 4 units AC SC 11/05/24 17:00 11/06/24 17:00 4 UNITS Spironolactone 25 mg DAILY PO 11/08/24 10:00 Empaglifozin 10 mg DAILY PO 11/08/24 10:00 laboratory and microbiology Laboratory Tests 11/07/24 05:40 Test 11/07/24 05:40 Range/Units Serum Glucose 80 74-106 mg/dL Problem List/Assessment/Plan Problem List/Assessment/Plan Assessment and plan #Acute on chronic heart failure systolic versus diastolic # bilateral leg swelling likely due to CHF/DVT # cardiomyopathy # anasarca -continue Eliquis 5 mg p.o. b.i.d. -patient had Lasix 80 mg IV once today, we will keep eye on the urine output and go from there -resumed home medication carvedilol - Echo 2D revealed dilated all cardiac chambers, LVEF 20%, mild posterior pericardial effusion. End stage cardiomyopathy. -ordered Lasix 40 mg IV b.i.d. -started Jardiance 10 mg p.o. daily -started spironolactone 25 mg p.o. daily # CONSTANCE on CKD likely due to cardiorenal syndrome # CKD stage III -avoid dehydration and nephrotoxic drugs # hypertension with heart failure -resume home medication carvedilol 3.125 mg p.o. b.i.d. --Lasix 40 mg IV b.i.d. -started Jardiance 10 mg p.o. daily -started spironolactone 25 mg p.o. daily -monitor blood pressure # diabetes mellitus type 2 -ordered insulin Lantus and lispro # hyperlipidemia # CAD # atrial fibrillation, on pacemaker -resume home medication Eliquis -resumed home medication carvedilol -atorvastatin 40 mg p.o. q.h.s. # suspected liver mass likely cystic lesion # gallstone # hepatic steatosis -ultrasound of the liver revealed- There is a 6 cm hypoechoic mass. Gallstones- patient to follow up outpatient with the primary care physician/wharf tender head for further evaluation -please follow up with the primary care physician for further evaluation and care # GERD -continue pantoprazole #Pancytopenia likely due suspected underlying liver due # thrombocytopenia under re-evaluate -no acute sign or symptom of -monitor CBC Goals of care, Code status full code full; discussed with >15 minutes PUD prophylaxis: Pantoprazole DVT prophylaxis: Eliquis Plan discussed with Dr. Michaels , nursing staff, Total time spent on patient evaluation, chart review, assessment and plan, discussion discussion >35 minutes Plan discussed with: Patient, Other (EKG) Plan discussed with: Patient, Other (RN) FRANCIS CARDOZA RESIDENT Nov 07, 2024 14:36
[2024-11-07] MEDS: FUROSEMIDE 40 MG/4 ML VIAL IV SCH (14:52)
[2024-11-07 15:56] LABS: Alanine Aminotransferase 13 U/L (7-40); Albumin 3.7 g/dL (3.2-4.8); Alkaline Phosphatase 79 U/L (46-116); Anion Gap 13 (5-15); BUN/Creatinine Ratio 11.3 (10.0-20.0); Calcium 8.7 mg/dL (8.7-10.4); Carbon Dioxide 25 mmol/L (20-31); Total Protein 5.7 g/dL (5.7-8.2)
[2024-11-07 15:57] LABS: Bilirubin, Total 2.5 mg/dL (0.2-1.0); Blood Urea Nitrogen 28 mg/dL (9-23); Chloride 104 mmol/L (98-107); Glucose 129 mg/dL (74-106); Potassium 3.8 mmol/L (3.5-5.1); Sodium 142 mmol/L (136-145)
[2024-11-08] VITALS (11 sets, daily range): BP systolic 109–161; BP diastolic 43–70; PULSE 63–84; RESP 14–18; TEMP 97.3–97.8; O2SAT 92–97
[2024-11-08 07:20] LABS: Hematocrit 33.0 % (41.0-53.0); Hemoglobin 11.4 g/dL (13.5-17.5); Mean Corpuscular Hemoglobin 29.7 pg (28.0-32.0); Mean Corpuscular Volume 86.0 fL (80.0-100.0); Nucleated Red Blood Cells % 0.2 %
[2024-11-08] MEDS: EMPAGLIFLOZIN 10 MG TAB PO SCH (09:04)
[2024-11-08] MEDS: SPIRONOLACTONE 25 MG TAB PO SCH (09:04)
[2024-11-08 09:25] LABS: Chloride 100 mmol/L (98-107); Potassium 4.5 mmol/L (3.5-5.1); Sodium 139 mmol/L (136-145)
[2024-11-08 09:26] LABS: Anion Gap 16 (5-15); Calcium 8.9 mg/dL (8.7-10.4); Carbon Dioxide 23 mmol/L (20-31)
[2024-11-08 09:31] LABS: BUN/Creatinine Ratio 7.3 (10.0-20.0); Blood Urea Nitrogen 19 mg/dL (9-23); Glucose 61 mg/dL (74-106)
[2024-11-08] MEDS: FUROSEMIDE 40 MG/4 ML VIAL IV ONE (11:22)
--- NOTE | 2024-11-08 13:33 | DVHPNRES ---
Progress Note Date Seen: Nov 08, 2024 Resident Creating Document: LEXIS WILLIS RESIDENT Medical Necessity Reason Pt with a Central, PICC or Fol: No Subjective Review of Systems Patient is 74 years old male with past medical history of hypertension, diabetes mellitus type 2, hyperlipidemia, CKD, atrial fibrillation on Eliquis, on pacemaker, CHF, GERD, CVA, cardiomyopathy came with a complaint of bilateral leg swelling. As per patient he has leg swelling for a while but which got worse over the last 1 week. Also patient reported his abdomen and scrotum and pain is also getting swollen over last 1 and half week. Patient denied any acute chest pain, palpitation, diarrhea, oliguria, cough, dysarthria, dysuria. Initial lab workup revealed WBC 3.5, hemoglobin 12.3, platelet 126, serum creatinine 2.70, GFR 24, blood sugar 143, BNP 696, chest x-ray cardiomegaly. Lower extremity Doppler study negative for DVT, ultrasound of the liver revealed- There is a 6 cm hypoechoic mass. MRI liver mass protocol recommended. Gallstones PMH-hypertension, diabetes mellitus type 2, hyperlipidemia, CKD, atrial fibrillation on Eliquis, on pacemaker, CHF, GERD, CVA, cardiomyopathy PSH- pacemaker Allergy- egg derived products Personal History/ Social History-patient did not smoking/substance abuse, occasional alcoholic, lives alone 11/07/2024 Patient was seen today at bedside. Labs and chart reviewed. Patient reports feeling better today, leg edema is improving. No acute distress. Echo 2D revealed LVEF 20%. Plan is to do GDM T. after three-month we will consider about AICD/life vest. Echo 2D revealed dilated all cardiac chambers, LVEF 20%, mild posterior pericardial effusion. End stage cardiomyopathy 11/08/2024 patient was seen at the bedside today. Labs and charts reviewed. We gave patient Lasix 80 today. Jardiance and spironolactone given. Uric acid levels, pending to monitor kidney function. Strict input and output for the next 6 hours since 80 mg Lasix was given. Objective vital signs Vital Sign Date Time Temp Pulse Resp B/P (MAP) Pulse Ox O2 Delivery O2 Flow Rate FiO2 11/08/24 12:35 97.7 63 14 138/64 (88) 93 97.7 11/08/24 12:08 0.0 21 11/08/24 10:00 Room Air* Total Intake and Output 11/07/24 11/07/24 11/08/24 15:00 23:00 07:00 Intake Total 1750 ml 800 ml Output Total 320 ml 450 ml Balance 1430 ml 350 ml medications Current Medications Medications Dose Ordered Sig/Mal Route Start Time Stop Time Status Last Admin Dose Admin Sodium Chloride 10 ml Q8HR IV 11/05/24 22:00 11/08/24 06:12 10 ML Acetaminophen 650 mg Q6HP PRN PO 11/05/24 14:30 Carvedilol 12.5 mg BID PO 11/05/24 22:00 11/08/24 09:04 12.5 MG Pantoprazole Sodium 40 mg DAILY PO 11/06/24 10:00 11/08/24 09:04 40 MG Patient Own Medication 1 tab DAILY PO 11/06/24 10:00 Apixaban 5 mg BID PO 11/05/24 22:00 11/08/24 09:04 5 MG Isosorbide Mononitrate 30 mg DAILY PO 11/06/24 10:00 11/08/24 09:03 30 MG Albuterol 2.5 mg Q6HPRN PRN NEB 11/05/24 14:45 Ipratropium [place] 0.5 mg Q6HPRN PRN NEB 11/05/24 14:45 Insulin Glargine 10 units DAILY@1000 SC 11/06/24 10:00 11/07/24 10:06 10 UNITS Insulin Human Regular 4 units AC SC 11/05/24 17:00 11/08/24 11:44 4 UNITS Spironolactone 25 mg DAILY PO 11/08/24 10:00 11/08/24 09:04 25 MG Empaglifozin 10 mg DAILY PO 11/08/24 10:00 11/08/24 09:04 10 MG laboratory and microbiology Laboratory Tests 11/08/24 05:48 Test 11/08/24 05:48 Range/Units Serum Glucose 61 L 74-106 mg/dL Labs and/or images reviewed: Labs reviewed by me, Image(s) reviewed by me Problem List/Assessment/Plan Problem List/Assessment/Plan #Acute on chronic heart failure systolic versus diastolic # bilateral leg swelling likely due to CHF/DVT # cardiomyopathy # anasarca -continue Eliquis 5 mg p.o. b.i.d. -patient had Lasix 80 mg IV once today, we will keep eye on the urine output and go from there -resumed home medication carvedilol - Echo 2D revealed dilated all cardiac chambers, LVEF 20%, mild posterior pericardial effusion. End stage cardiomyopathy. -Lasix 80 mg IV today -started Jardiance 10 mg p.o. daily -started spironolactone 25 mg p.o. daily # CONSTANCE on CKD likely due to cardiorenal syndrome # CKD stage III -avoid dehydration and nephrotoxic drugs # hypertension with heart failure -resume home medication carvedilol 3.125 mg p.o. b.i.d. --Lasix 40 mg IV b.i.d. -started Jardiance 10 mg p.o. daily -started spironolactone 25 mg p.o. daily -monitor blood pressure # diabetes mellitus type 2 -ordered insulin Lantus and lispro # hyperlipidemia # CAD # atrial fibrillation, on pacemaker -resume home medication Eliquis -resumed home medication carvedilol -atorvastatin 40 mg p.o. q.h.s. # suspected liver mass likely cystic lesion # gallstone # hepatic steatosis -ultrasound of the liver revealed- There is a 6 cm hypoechoic mass. Gallstones- patient to follow up outpatient with the primary care physician/blind installer for further evaluation -please follow up with the primary care physician for further evaluation and care # GERD -continue pantoprazole #Pancytopenia likely due suspected underlying liver due # thrombocytopenia under re-evaluate -no acute sign or symptom of -monitor CBC Goals of care, Code status full code full; discussed with >15 minutes PUD prophylaxis: Pantoprazole DVT prophylaxis: Eliquis Plan discussed with Dr. Michaels , nursing staff, Total time spent on patient evaluation, chart review, assessment and plan, discussion discussion >35 minutes Plan discussed with: Patient, Other (EKG) Plan discussed with: Patient, Other (rn) LEXIS WILLIS RESIDENT Nov 08, 2024 13:33
[2024-11-08] MEDS: DOCUSATE SOD 100 MG CAP PO SCH (21:48)
[2024-11-08 23:27] LABS: Potassium 3.8 mmol/L (3.5-5.1)
[2024-11-08 23:28] LABS: Anion Gap 13 (5-15); Calcium 9.0 mg/dL (8.7-10.4); Carbon Dioxide 24 mmol/L (20-31)
[2024-11-08 23:33] LABS: BUN/Creatinine Ratio 8.1 (10.0-20.0); Blood Urea Nitrogen 21 mg/dL (9-23)
[2024-11-08 23:49] LABS: Chloride 97 mmol/L (98-107); Glucose 185 mg/dL (74-106); Sodium 134 mmol/L (136-145)
[2024-11-09] VITALS (12 sets, daily range): BP systolic 121–149; BP diastolic 50–90; PULSE 60–72; RESP 14–18; TEMP 97.3–98.1; O2SAT 90–96
[2024-11-09 07:45] LABS: Anion Gap 12 (5-15); Calcium 9.0 mg/dL (8.7-10.4); Carbon Dioxide 24 mmol/L (20-31); Potassium 3.6 mmol/L (3.5-5.1)
[2024-11-09 07:46] LABS: Hematocrit 32.8 % (41.0-53.0); Hemoglobin 11.3 g/dL (13.5-17.5); Mean Corpuscular Hemoglobin 29.2 pg (28.0-32.0); Mean Corpuscular Volume 85.2 fL (80.0-100.0); Nucleated Red Blood Cells % 0.0 %
[2024-11-09 07:50] LABS: BUN/Creatinine Ratio 7.6 (10.0-20.0); Blood Urea Nitrogen 20 mg/dL (9-23)
[2024-11-09 07:52] LABS: Chloride 98 mmol/L (98-107); Glucose 126 mg/dL (74-106); Sodium 134 mmol/L (136-145)
[2024-11-09] MEDS: FUROSEMIDE 100 MG/10ML VIAL IV SCH (11:20)
[2024-11-09] MEDS: SENNA 8.6 MG TAB PO SCH (12:15)
--- NOTE | 2024-11-09 16:33 | DVHPNRES ---
Progress Note Date Seen: Nov 09, 2024 Resident Creating Document: FRANCIS CARDOZA RESIDENT Medical Necessity Reason Pt with a Central, PICC or Fol: No Subjective Review of Systems Patient is 74 years old male with past medical history of hypertension, diabetes mellitus type 2, hyperlipidemia, CKD, atrial fibrillation on Eliquis, on pacemaker, CHF, GERD, CVA, cardiomyopathy came with a complaint of bilateral leg swelling. As per patient he has leg swelling for a while but which got worse over the last 1 week. Also patient reported his abdomen and scrotum and pain is also getting swollen over last 1 and half week. Patient denied any acute chest pain, palpitation, diarrhea, oliguria, cough, dysarthria, dysuria. Initial lab workup revealed WBC 3.5, hemoglobin 12.3, platelet 126, serum creatinine 2.70, GFR 24, blood sugar 143, BNP 696, chest x-ray cardiomegaly. Lower extremity Doppler study negative for DVT, ultrasound of the liver revealed- There is a 6 cm hypoechoic mass. MRI liver mass protocol recommended. Gallstones PMH-hypertension, diabetes mellitus type 2, hyperlipidemia, CKD, atrial fibrillation on Eliquis, on pacemaker, CHF, GERD, CVA, cardiomyopathy PSH- pacemaker Allergy- egg derived products Personal History/ Social History-patient did not smoking/substance abuse, occasional alcoholic, lives alone Review of other system Cardiovascular- deny acute chest pain or shortness of breath or cough or palpitation Respiratory denies cough or short of breath or wheezing Gastrointestinal- denies any rectal bleeding, nausea or vomiting Musculoskeletal-denies acute joint tenderness or redness Neurological- denies acute dysarthria, dysphagia, change in vision Psychiatry- denies depression or SI or HI Skin- denies acute rash or purpura Patient was seen today at bedside. Labs and chart reviewed. Patient reported feeling better today, leg edema improving, discontinued Lasix, ordered Bumex 1 mg p.o. daily. Patient reported being allergic to Jardiance. We will DC Jardiance for now. Patient is to follow up with the primary care physician and diagrammer for further management with Jardiance or altered negative. Objective vital signs Vital Sign Date Time Temp Pulse Resp B/P (MAP) Pulse Ox O2 Delivery O2 Flow Rate FiO2 11/09/24 14:33 143/51 11/09/24 12:39 97.8 67 16 94 97.8 9/28/25 10:00 Room Air* 0 21 Total Intake and Output 11/08/24 11/08/24 11/09/24 15:00 23:00 07:00 Intake Total 180 ml 600 ml 400 ml Output Total 350 ml 850 ml Balance 180 ml 250 ml -450 ml medications Current Medications Medications Dose Ordered Sig/Mal Route Start Time Stop Time Status Last Admin Dose Admin Sodium Chloride 10 ml Q8HR IV 11/05/24 22:00 11/09/24 14:33 10 ML Acetaminophen 650 mg Q6HP PRN PO 11/05/24 14:30 Carvedilol 12.5 mg BID PO 11/05/24 22:00 11/09/24 11:21 12.5 MG Pantoprazole Sodium 40 mg DAILY PO 11/06/24 10:00 11/09/24 09:27 40 MG Patient Own Medication 1 tab DAILY PO 11/06/24 10:00 Apixaban 5 mg BID PO 11/05/24 22:00 11/09/24 11:21 5 MG Isosorbide Mononitrate 30 mg DAILY PO 11/06/24 10:00 11/09/24 11:21 30 MG Albuterol 2.5 mg Q6HPRN PRN NEB 11/05/24 14:45 Ipratropium [place] 0.5 mg Q6HPRN PRN NEB 11/05/24 14:45 Insulin Glargine 10 units DAILY@1000 SC 11/06/24 10:00 11/07/24 10:06 10 UNITS Insulin Human Regular 4 units AC SC 11/05/24 17:00 11/08/24 11:44 4 UNITS Spironolactone 25 mg DAILY PO 11/08/24 10:00 11/09/24 11:21 25 MG Docusate Sodium 100 mg DAILY PO 11/08/24 21:00 11/09/24 09:27 100 MG Hydralazine HCl 10 mg Q8HR PO 11/09/24 12:15 11/09/24 14:33 10 MG Sennosides 17.2 mg HS PO 11/09/24 12:15 Bumetanide 1 mg DAILY PO 11/10/24 10:00 Examination General examination- awake, alert, oriented HEENT- PEERLA, no acute nasal discharge Cardiovascular- S1-S2 audible, rate and rhythm regular, no murmur Respiratory- CTAB, no wheeze or rhonchi Gastrointestinal-abdomen swollen, distended likely has ascites, bowel sound+. Nondistended Musculoskeletal-no acute joint swelling or tenderness or redness Lower extremity- bilateral leg swelling+++ Neurological- cranial nerves intact, no acute dysarthria or dysphagia Psychiatry- denies depression or SI or HI Skin- no acute rash or purpura laboratory and microbiology Laboratory Tests 11/09/24 06:20 Test 11/09/24 06:20 Range/Units Serum Glucose 126 H 74-106 mg/dL Problem List/Assessment/Plan Problem List/Assessment/Plan Assessment and plan #Acute on chronic heart failure systolic versus diastolic # bilateral leg swelling likely due to CHF/DVT # cardiomyopathy # anasarca -continue Eliquis 5 mg p.o. b.i.d. -patient had Lasix 80 mg IV once today, we will keep eye on the urine output and go from there -resumed home medication carvedilol - Echo 2D revealed dilated all cardiac chambers, LVEF 20%, mild posterior pericardial effusion. End stage cardiomyopathy. -ordered Lasix 40 mg IV b.i.d. -hold Jardiance 10 mg p.o. daily -continue spironolactone 25 mg p.o. daily -ordered hydralazine 10 mg p.o. q.8h H # CONSTANCE on CKD likely due to cardiorenal syndrome # CKD stage III -avoid dehydration and nephrotoxic drugs # hypertension with heart failure -resume home medication carvedilol 3.125 mg p.o. b.i.d. -continue Lasix, ordered Bumex 1 mg p.o. daily -hold Jardiance 10 mg p.o. daily -started spironolactone 25 mg p.o. daily -monitor blood pressure # diabetes mellitus type 2 -ordered insulin Lantus and lispro # hyperlipidemia # CAD # atrial fibrillation, on pacemaker -resume home medication Eliquis -resumed home medication carvedilol -atorvastatin 40 mg p.o. q.h.s. # suspected liver mass likely cystic lesion # gallstone # hepatic steatosis -ultrasound of the liver revealed- There is a 6 cm hypoechoic mass. Gallstones- patient to follow up outpatient with the primary care physician/dynamometer tuner for further evaluation -please follow up with the primary care physician for further evaluation and care # GERD -continue pantoprazole #Pancytopenia likely due suspected underlying liver due # thrombocytopenia under re-evaluate -no acute sign or symptom of -monitor CBC Goals of care, Code status full code full; discussed with >15 minutes PUD prophylaxis: Pantoprazole DVT prophylaxis: Eliquis Plan discussed with Dr. Michaels , nursing staff, Total time spent on patient evaluation, chart review, assessment and plan, discussion discussion >35 minutes Plan discussed with: Patient, Other (EKG) Plan discussed with: Patient, Other (RN) My Orders My Orders Orders - FRANCIS CARDOZA Procedure Category Date Status Time Hydralazine Hcl PHA 11/09/24 In Process Tablet (Apresoline 12:15 Senna Pod Tablet PHA 11/09/24 In Process (Senokot Tablet) 12:15 Bumetanide Tablet PHA 11/10/24 In Process (Bumex Tablet) 10:00 Dietary Evaluation Review Recommendations by RD: Dietary education by RD Comments: 1) Continue 45g CCHO renal cardiac diet 2) Encourage optimal PO intake 3) Refer to outpatient RD/CD[facility] for weight management 4) Follow-up with cardiology and nephrology 5) Continue to monitor I&O, labs, and skin integrity Expected Outcomes/Goals: 1) appetite and labs to improve 2) gradual wt loss 3) f/u in 3-5 days FRANCIS CARDOZA Nov 09, 2024 16:33
[2024-11-10] VITALS (9 sets, daily range): BP systolic 132–153; BP diastolic 47–70; PULSE 64–71; RESP 17–18; TEMP 36.3; O2SAT 93–96
[2024-11-10 06:23] LABS: Calcium 9.3 mg/dL (8.7-10.4); Chloride 98 mmol/L (98-107)
[2024-11-10 06:24] LABS: Anion Gap 12 (5-15); Carbon Dioxide 26 mmol/L (20-31)
[2024-11-10 06:27] LABS: Potassium 3.5 mmol/L (3.5-5.1); Sodium 136 mmol/L (136-145)
[2024-11-10 06:29] LABS: BUN/Creatinine Ratio 8.0 (10.0-20.0); Blood Urea Nitrogen 22 mg/dL (9-23); Glucose 130 mg/dL (74-106); Magnesium 1.8 mg/dL (1.6-2.6)
--- NOTE | 2024-11-10 10:17 | DVHDSRES ---
Discharge Summary Date of Admission Resident Creating Document: FRANCIS CARDOZA RESIDENT Nov 05, 2024 at 14:24 Date of Discharge: Nov 10, 2024 Admitting Diagnosis Acute exacerbation of CHF with anasarca Labs/Diagnostic Data: Laboratory Results Test 11/10/24 05:28 11/09/24 06:20 11/08/24 05:48 11/07/24 15:12 Sodium Level 136 mmol/L (136-145) Potassium Level 3.5 mmol/L (3.5-5.1) Chloride Level 98 mmol/L (98-107) Carbon Dioxide Level 26 mmol/L (20-31) Anion Gap 12 (5-15) Blood Urea Nitrogen 22 mg/dL (9-23) Creatinine 2.74 mg/dL (0.700-1.30) Glomerular Filtration Rate Calc 24 mL/min (>90) BUN/Creatinine Ratio 8.0 (10.0-20.0) Serum Glucose 130 mg/dL (74-106) POC Glucose 149 mg/dl (70-106) Calcium Level 9.3 mg/dL (8.7-10.4) Magnesium Level 1.8 mg/dL (1.6-2.6) White Blood Count 2.3 10^3/uL (4.4-10.8) Red Blood Count 3.85 10^6/uL (4.5-5.90) Hemoglobin 11.3 g/dL (13.5-17.5) Hematocrit 32.8 % (41.0-53.0) Mean Corpuscular Volume 85.2 fL (80.0-100.0) Mean Corpuscular Hemoglobin 29.2 pg (28.0-32.0) Mean Corpuscular Hemoglobin Concent 34.3 g/dL (32.0-36.0) Red Cell Distribution Width 16.1 % (11.8-14.3) Platelet Count 103 10^3/uL (140-450) Mean Platelet Volume 8.8 fL (6.9-10.8) Neutrophils (%) (Auto) 54.8 % (37.0-80.0) Lymphocytes (%) (Auto) 22.4 % (10.0-50.0) Monocytes (%) (Auto) 17.1 % (0.0-12.0) Eosinophils (%) (Auto) 4.0 % (0.0-7.0) Basophils (%) (Auto) 1.7 % (0.0-2.0) Neutrophils # (Auto) 1.2 10 ^3/uL (1.6-8.6) Lymphocytes # (Auto) 0.5 10 ^3/uL (0.4-5.4) Monocytes # (Auto) 0.4 10 ^3/uL (0-1.3) Eosinophils # (Auto) 0.1 10 ^3/uL (0-0.8) Basophils # (Auto) 0 10 ^3/uL (0-0.2) Nucleated Red Blood Cells 0.0 % Uric Acid 14.0 mg/dL (3.7-9.2) Total Bilirubin 2.5 mg/dL (0.2-1.0) Aspartate Amino Transferase (AST) 20 U/L (13-40) Alanine Aminotransferase (ALT) 13 U/L (7-40) Alkaline Phosphatase 79 U/L (46-116) Total Protein 5.7 g/dL (5.7-8.2) Albumin 3.7 g/dL (3.2-4.8) Test 11/05/24 17:47 11/05/24 15:34 11/05/24 12:11 Lactic Acid Level 1.4 mmol/L (0.4-2.0) Troponin I High Sensitivity 16 ng/L (</=54) Hemoglobin A1c 5.8 % A1C (<5.7) Phosphorus Level 3.3 mg/dL (2.4-5.1) B-Type Natriuretic Peptide 696.71 pg/mL (0-100) Thyroid Stimulating Hormone (TSH) 7.38 uIU/mL (0.55-4.78) Other Laboratory Tests 11/10/24 05:28 11/09/24 06:20 Brief Hx & Hospital Course: Patient is 74 years old male with past medical history of hypertension, diabetes mellitus type 2, hyperlipidemia, CKD, atrial fibrillation on Eliquis, on pacemaker, CHF, GERD, CVA, cardiomyopathy came with a complaint of bilateral leg swelling. As per patient he has leg swelling for a while but which got worse over the last 1 week. Also patient reported his abdomen and scrotum and pain is also getting swollen over last 1 and half week. Patient denied any acute chest pain, palpitation, diarrhea, oliguria, cough, dysarthria, dysuria. Initial lab workup revealed WBC 3.5, hemoglobin 12.3, platelet 126, serum creatinine 2.70, GFR 24, blood sugar 143, BNP 696, chest x-ray cardiomegaly. Lower extremity Doppler study negative for DVT, ultrasound of the liver revealed- There is a 6 cm hypoechoic mass. MRI liver mass protocol recommended. Gallstones. 2D revealed LVEF 20%, dilated all cardiac chambers, mild posterior pericardial effusion, dilated cardiomyopathy end-stage. Patient was treated conservatively with IV Lasix then switched to Bumex 1 mg p.o. daily. Patient has a history of liver cyst from before. Patient was advised is to follow up with the primary care physician or hadoop software engineer for hepatic cyst. Patient was started on GDM T, patient reported he had side effects from Jardiance, he was unable to move his lower extremity after taking Jardiance. That is why Jardiance was not given. Patient was advised to follow up with the chuck tender status post discharged in 1-2 weeks for further evaluation and care and also discussed about Jardiance. Patient was also advised to follow up with the primary care physician in 1-2 weeks. Patient's meds were sent to the pharmacy electronically. Patient was hemodynamically stable on discharge. Operations or Procedures [place] [id number] Ph: [phone] DIAGNOSTIC IMAGING Diagnostic Imaging Report : [id number] Signed PATIENT: KARYN LYON HACCT: [id number] UNIT: [id number] : 1950 LOC: ER ROOM / BED: / AGE / SEX: 74 / M ADM STATUS: REG ER SERVICE 1137 ORDERING PHYSICIAN: JOSELITO EDGAR DO PROCEDURE(s): CXRP - CHEST PORTABLE REASON: CHF ORDER NUMBER(s): [id number], ACCESSION NUMBER(s): [id number] INDICATION: CHF TECHNIQUE: Frontal view of the chest. COMPARISON: XY CHEST TWO VIEWS ROUTINE on DOS: 10/30/24, XY CHEST TWO VIEWS ROUTINE on DOS: 07/27/23, CXR2 on DOS: 03/31/22, CHEST TWO VIEWS ROUTINE on DOS: 03/31/22, CHEST TWO VIEWS ROUTINE on DOS: 07/16/20 FINDINGS: Left-sided pacemaker. Cardiomegaly. There is no evidence of pleural disease. The lungs are clear. The bony structures of the chest are intact without fracture. IMPRESSION: 1. No evidence of acute disease. ATED BY: CORTEZ LOZANO MD DICTATED DATE/TIME: 11/05/24 1231 SIGNED BY: CORTEZ LOZANO MD SIGNED DATE/TIME: 11/05/24 1231 CC: [place] [id number] Ph: [phone] DIAGNOSTIC IMAGING Diagnostic Imaging Report : [id number] Signed PATIENT: KARYN LYON HACCT: [id number] UNIT: [id number] : 1950 LOC: OVERFLOW ROOM / BED: [address] [place] [address] AGE / SEX: 74 / M ADM STATUS: ADM IN SERVICE 142 ORDERING PHYSICIAN: FRANCIS CARDOZA RESIDENT PROCEDURE(s): ABDC - ABDOMEN COMPLETE SONOGRAM REASON: Abdominal swelling ORDER NUMBER(s): [id number], ACCESSION NUMBER(s): [id number] INDICATION: Abdominal swelling TECHNIQUE: Multiple real-time sonographic images of the abdomen were obtained. COMPARISON: US ABDOMEN COMPLETE SONOGRAM on DOS: 06/21/22, ABDOMEN COMPLETE SONOGRAM on DOS: 07/27/20 FINDINGS: Liver is heterogeneous. 3 cm right renal cyst. There is a 6 cm hypoechoic mass. MRI liver mass protocol recommended. The gallbladder wall measures 0.3 cm and is unremarkable. . The common duct measures 0.5 cm and is unremarkable. No pericholecystic fluid is noted. The right kidney measures 11cm. No hydronephrosis. The left kidney measures 10cm. No hydronephrosis. The pancreas is not well visualized due to obscuration from bowel gas. The visualized portions of the IVC and aorta are grossly unremarkable. IMPRESSION: There is a 6 cm hypoechoic mass. MRI liver mass protocol recommended. Gallstones ATED BY: CORTEZ LOZANO MD DICTATED DATE/TIME: 11/05/241529 SIGNED BY: CORTEZ LOZANO MD SIGNED DATE/TIME: 11/05/241529 CC: [place] [id number] Ph: [phone] DIAGNOSTIC IMAGING Diagnostic Imaging Report : [id number] Signed PATIENT: KARYN LYONCCT: [id number] UNIT: [id number] : 1950 LOC: OVERFLOW ROOM / BED: 1012-ERT / A AGE / SEX: 74 / M ADM STATUS: ADM IN SERVICE 142 ORDERING PHYSICIAN: FRANCIS CARDOZA PROCEDURE(s): BLDVT - BiLat Lower DVT REASON: Bilateral leg swelling ORDER NUMBER(s): [id number], ACCESSION NUMBER(s): [id number] BILATERAL LOWER EXTREMITY VENOUS DUPLEX REASON FOR EXAMINATION: Bilateral leg swelling X1 week COMPARISON: None TECHNIQUE: Using real-time freeze-frame technique with a high-frequency transducer, multiple longitudinal and transverse sections were obtained. Simultaneous color flow and spectral Doppler imaging was performed. FINDINGS: There is good visualization of the deep venous system with no intraluminal filling defects identified. Normal venous compressibility is seen and there is flow augmentation. Color flow Doppler imaging is unremarkable. There is subcutaneous soft tissue edema diffusely in both lower extremities. IMPRESSION: NO EVIDENCE OF DEEP VENOUS THROMBOSIS. ATED BY: JIGAR SAWANT MD DICTATED DATE/TIME: 11/05/241533 SIGNED BY: JIGAR SAWANT MD SIGNED DATE/TIME: 11/05/241533 CC: [place] [id number] Ph: [phone] DIAGNOSTIC IMAGING Diagnostic Imaging Report : [id number] Signed PATIENT: KARYN LYONT: [id number] UNIT: [id number] : 1950 LOC: [facility] ROOM / BED: 0275T / B AGE / SEX: 74 / M ADM STATUS: ADM IN SERVICE 142 ORDERING PHYSICIAN: FRANCIS CARDOZA PROCEDURE(s): ECIDC - ECHO 2D MODE CARDIAC DOP REASON: CHF ORDER NUMBER(s): [id number], ACCESSION NUMBER(s): [id number] APPROVED REPORT EXAM: Two-dimensional and M-mode echocardiogram with Doppler and color Doppler. Blood Pressure: 136/73 mmHg INDICATION Heart Failure RISK FACTORS Height: 5'6", Weight: 230 DIMENSIONS LVDd 4.7 (3.8-5.7cm) LA (2D) 4.5 (1.9-4.0cm) Aortic Root 2.8 (2.0- 3.7cm) LVDs 4.2 (2.5-4.0cm) LA (MM) (1.9-4.0cm) Aortic Cusp Exc 1.9 (1.5- 2.0cm) EF (%) 25.0 (55-70%) Rt. Atrium 4.9 (1.9-4.0cm) Asc. Aorta 2.9 cm IVSd 1.0 (0.7-1.1cm) RV (D) 5.4 (1.8-2.4cm) PWd 1.1 (0.7-1.1cm) Mitral Valve Mitral Mitral Stenosis E wave 0.73m/s MV Mean GR. mmHg A wave 0.24m/s MV Peak GR. mmHg E/A ratio 3.0 2D MVA cm2 DECEL Time 110ms PRESS 1/2 Time ms Aortic Valve Aortic Valve Aortic Stenosis V1 0.69m/s AO Mean GR. 2mmHg V2 0.93m/s AO Peak GR. 3mmHg LVOT Diameter 1.9 (1.8-2.4cm) Doppler BENITEZ 2.10cm2 Pulmonic Valve V2 0.58m/s Tricuspid Valve TR Velocity 2.25m/s RVSP 24mmHg Conclusion DILATED ALL CARDIAC CHAMBERS LV EF IS ONLY 20% MILD POSTERIOR PERICARDIAL EFFUSION IT IS END STAGE DILATED CARDIOMYOPATHY SIGNED BY: EULA HEBERT MD SIGNED DATE/TIME: 11/07/24 4851 CC: Condition at Discharge: Stable Final Diagnosis/Problems List #Acute on chronic heart failure systolic versus diastolic # bilateral leg swelling likely due to CHF/DVT # cardiomyopathy # anasarca # CONSTANCE on CKD likely due to cardiorenal syndrome # CKD stage III # hypertension with heart failure # diabetes mellitus type 2 # hyperlipidemia # CAD # atrial fibrillation, on pacemaker # suspected liver mass likely cystic lesion # gallstone # hepatic steatosis # GERD #Pancytopenia likely due suspected underlying liver due # thrombocytopenia under re-evaluate Discharge Disposition: Home Discharge Instruct/Medications Diet: Consistent carbohydrate, Cardiac 2g Na,low cholest Follow Up/Referral: Please follow up with the primary care physician in 1-2 weeks Please follow up with the chuck tender in 1-2 weeks and also discussed about Jardiance as you had history of side effects from Jardiance Medications: Bumex 1 mg p.o. daily Carvedilol 12.5 mg p.o. b.i.d. Eliquis 5 mg p.o. b.i.d. Isosorbide mononitrate 30 mg p.o. daily Hydralazine 10 mg p.o. t.i.d. Spironolactone 25 mg p.o. daily Pantoprazole 20 mg p.o. daily Scheduled Amlodipine Besylate (Norvasc Tablet), 1 TAB PO BID, (Reported) Apixaban Base (Eliquis), 5 MG PO BID, (Reported) Bumetanide (Bumex Tablet), 1 MG PO DAILY Carvedilol (Carvedilol), 1 TAB PO BID Glipizide (Glipizide), 1 TAB PO BID Hydralazine Hcl (Hydralazine Hcl), 1 TAB PO BID, (Reported) Isosorbide Mononitrate (Isosorbide Mononitrate Er), 1 TAB PO DAILY, (Reported) Potassium Chloride (Potassium Chloride Cr), 1 TAB PO DAILY, (Reported) Spironolactone (Spironolactone), 1 TAB PO DAILY Discontinued Medications Furosemide (Furosemide), 1 TAB PO BID, (Reported) Discharge Statement: "Patient was advised to return to the ER or call 911 if any headaches, dizziness, shortness of breath, chest pain, abdominal pain, bleeding, fevers, or worsening of medical condition. Patient was counseled about treatment plan, medications, possible side effects, patientverbalized understanding. All questions were answered to the best of my ability. This discharge took greater then 30 minutes in planning, reviewing documentation, counseling the patient, and discussing with other team members." ASSESSMENT ASSESSMENT Assessment FRANCIS CARDOZA RESIDENT Nov 10, 2024 10:17
[2024-11-10] MEDS: BUMETANIDE 1 MG TAB PO SCH (10:31)
[2024-11-10] MEDS: MAGNESIUM SULFATE 1GM/100ML 100 ML IV ONE (10:34)
[2024-11-10] MEDS ORDERED: SPIR25TA8 PO ×2 (12:02→15:49)
[2024-11-10] MEDS ORDERED: BUME2TAB5 PO (12:02)
[2024-11-10] MEDS ORDERED: CARV12.544 PO (15:51)
[2024-11-10] MEDS ORDERED: BUM1T PO (15:51)
[2024-11-10] MEDS ORDERED: GLIP5TAB21 PO (15:51)
--- NOTE | 2024-11-11 09:20 | ECG ---
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
== END 2024-11-10 16:15 | disposition home or self-care (01) | DRG 291 ==
LOC: ER 11:20 → OVERFLOW 14:24 → TELE-WESTW 15:49
PROVIDERS: ADMIT Student in an Organized Health Care Education/Training Program; ATTEND Student in an Organized Health Care Education/Training Program
DX: I13.2 Hypertensive heart and chronic kidney disease with heart failure and with stage 5 chronic kidney disease, or end stage renal disease (principal); I50.43 Acute on chronic combined systolic (congestive) and diastolic (congestive) heart failure; N18.6 End stage renal disease; D61.818 Other pancytopenia; N17.9 Acute kidney failure, unspecified; I42.0 Dilated cardiomyopathy; E78.5 Hyperlipidemia, unspecified; I25.10 Atherosclerotic heart disease of native coronary artery without angina pectoris; K21.9 Gastro-esophageal reflux disease without esophagitis; D69.6 Thrombocytopenia, unspecified; K76.0 Fatty (change of) liver, not elsewhere classified; I48.91 Unspecified atrial fibrillation; E11.22 Type 2 diabetes mellitus with diabetic chronic kidney disease; K80.20 Calculus of gallbladder without cholecystitis without obstruction; R16.0 Hepatomegaly, not elsewhere classified; Z86.73 Personal history of transient ischemic attack (TIA), and cerebral infarction without residual deficits; Z95.0 Presence of cardiac pacemaker; Z79.01 Long term (current) use of anticoagulants; Z79.899 Other long term (current) drug therapy
CPT/HCPCS: 36415; 71045; 76700; 80048; 80053; 82962; 83036; 83605; 83735; 83880; 84100; 84443; 84484; 84550; 85025; 93005; 93306; 93970; 96374; G0378; J1815

== ENCOUNTER → 2024-11-18 | Outpatient (CLI) | payer MEDICARE, OTHER ==
[~2024-11-18] MED LIST changes: -ACAR50TA2 PO; +AML5T PO; +APIX5TAB PO; -ASPI1TAB20 PO; +BUM1T PO; -ENAL1TAB48 PO; -FEBU80TA PO; +GLIP5TAB21 PO; -GLYB5TAB8 PO; +HYDR50TA47 PO; +ISOS1TAB28 PO; -LINA5TAB PO; -MULTLIQ36 PO; -PANT40T PO; +POTA-36 PO; +SPIR25TA8 PO; -WARF-66 PO
[2024-11-18 15:28] LABS: Chloride 101 mmol/L (98-107); Potassium 3.5 mmol/L (3.5-5.1); Sodium 144 mmol/L (136-145)
[2024-11-18 15:30] LABS: Anion Gap 13 (5-15); Calcium 9.5 mg/dL (8.7-10.4); Carbon Dioxide 30 mmol/L (20-31)
[2024-11-18 15:35] LABS: BUN/Creatinine Ratio 11.2 (10.0-20.0); Glucose 80 mg/dL (74-106)
[2024-11-18 15:36] LABS: Blood Urea Nitrogen 30 mg/dL (9-23)
== END | disposition home or self-care (01) ==
LOC: LAB 14:43
PROVIDERS: ATTEND Internal Medicine Cardiovascular Disease
DX: I11.0 Hypertensive heart disease with heart failure (principal); I50.20 Unspecified systolic (congestive) heart failure; E11.9 Type 2 diabetes mellitus without complications; E79.0 Hyperuricemia without signs of inflammatory arthritis and tophaceous disease; E78.00 Pure hypercholesterolemia, unspecified; D69.6 Thrombocytopenia, unspecified; I42.9 Cardiomyopathy, unspecified; I48.20 Chronic atrial fibrillation, unspecified; I27.21 Secondary pulmonary arterial hypertension; K21.9 Gastro-esophageal reflux disease without esophagitis; K64.9 Unspecified hemorrhoids; N28.9 Disorder of kidney and ureter, unspecified; R94.39 Abnormal result of other cardiovascular function study; Z95.0 Presence of cardiac pacemaker
CPT/HCPCS: 36415; 80048

== ENCOUNTER → 2024-11-27 | Outpatient (CLI) | payer MEDICARE, OTHER ==
[2024-11-27 12:11] LABS: Hematocrit 35.6 % (41.0-53.0); Hemoglobin 11.8 g/dL (13.5-17.5); Mean Corpuscular Hemoglobin 28.0 pg (28.0-32.0); Mean Corpuscular Volume 84.7 fL (80.0-100.0); Nucleated Red Blood Cells % 0.3 %
[2024-11-27 12:55] LABS: Chloride 99 mmol/L (98-107); Potassium 4.3 mmol/L (3.5-5.1); Sodium 145 mmol/L (136-145)
[2024-11-27 12:56] LABS: Anion Gap 14 (5-15); Calcium 9.5 mg/dL (8.7-10.4); Carbon Dioxide 32 mmol/L (20-31)
[2024-11-27 13:01] LABS: BUN/Creatinine Ratio 13.9 (10.0-20.0); Glucose 80 mg/dL (74-106)
[2024-11-27 13:02] LABS: Blood Urea Nitrogen 37 mg/dL (9-23)
== END | disposition home or self-care (01) ==
LOC: LAB 11:38
PROVIDERS: ATTEND Internal Medicine
DX: K74.60 Unspecified cirrhosis of liver (principal); I42.0 Dilated cardiomyopathy
CPT/HCPCS: 36415; 80048; 82105; 83880; 85025

== ENCOUNTER 2024-12-30 09:56 | Outpatient (CLI) | payer MEDICARE, OTHER ==
[~2024-12-30 09:56] MED LIST changes: -SPIR25TA8 PO
[2024-12-30 10:49] LABS: INR 1.25 (0.9-1.15); Prothrombin Time 13.0 sec (9.3-11.8)
[2024-12-30 10:58] LABS: Albumin 4.4 g/dL (3.2-4.8); Alkaline Phosphatase 83 U/L (46-116); Anion Gap 12 (5-15); BUN/Creatinine Ratio 16.0 (10.0-20.0); Calcium 9.2 mg/dL (8.7-10.4); Potassium 3.7 mmol/L (3.5-5.1); Sodium 137 mmol/L (136-145); Total Protein 7.2 g/dL (5.7-8.2)
[2024-12-30 11:02] LABS: Alanine Aminotransferase < 9 U/L (7-40); Bilirubin, Total 2.4 mg/dL (0.2-1.0); Blood Urea Nitrogen 38 mg/dL (9-23); Carbon Dioxide 31 mmol/L (20-31); Chloride 94 mmol/L (98-107); Glucose 156 mg/dL (74-106); Magnesium 1.3 mg/dL (1.6-2.6)
== END 2024-12-30 17:00 | disposition home or self-care (01) ==
LOC: LAB 09:56
PROVIDERS: ATTEND Internal Medicine
DX: I42.0 Dilated cardiomyopathy (principal); K70.0 Alcoholic fatty liver; K74.60 Unspecified cirrhosis of liver
CPT/HCPCS: 36415; 80053; 83735; 85610

== ENCOUNTER 2025-01-21 10:07 | Outpatient (CLI) | payer MEDICARE, OTHER ==
[2025-01-21 11:16] LABS: Hematocrit 45.4 % (41.0-53.0); Hemoglobin 15.7 g/dL (13.5-17.5); Mean Corpuscular Hemoglobin 28.9 pg (28.0-32.0); Mean Corpuscular Volume 83.6 fL (80.0-100.0); Nucleated Red Blood Cells % 0.3 %
[2025-01-21 11:21] LABS: Alanine Aminotransferase 19 U/L (7-40); Alkaline Phosphatase 86 U/L (46-116); Anion Gap 14 (5-15); BUN/Creatinine Ratio 26.2 (10.0-20.0); Calcium 10.3 mg/dL (8.7-10.4); Magnesium 2.2 mg/dL (1.6-2.6); Potassium 4.0 mmol/L (3.5-5.1); Total Protein 8.0 g/dL (5.7-8.2)
[2025-01-21 11:33] LABS: Carbon Dioxide 34 mmol/L (20-31); Chloride 64 mmol/L (98-107)
[2025-01-21 11:34] LABS: Albumin 4.8 g/dL (3.2-4.8); Bilirubin, Total 4.9 mg/dL (0.2-1.0); Uric Acid 16.2 mg/dL (3.7-9.2)
[2025-01-21 11:40] LABS: Blood Urea Nitrogen 112 mg/dL (9-23); Glucose 697 mg/dL (74-106); Sodium 112 mmol/L (136-145)
[2025-01-21 11:42] LABS: Thyroid Stimulating Hormone 3.3 uIU/mL (0.55-4.78)
[2025-01-21 11:43] LABS: Hepatitis B Surface Antigen Negative (Negative)
[2025-01-21 12:01] LABS: Hepatitis C Antibody Negative (Negative)
[2025-01-21] MEDS ORDERED: APIX2.5T PO (13:32)
[2025-01-21] MEDS ORDERED: METO2.5T PO (13:32)
[2025-01-21] MEDS ORDERED: SPIR50TA2 PO (13:32)
[2025-01-21] MEDS ORDERED: PANT40T PO (13:32)
[2025-01-22 10:07] LABS: Anti-Nuclear Antibody Direct Negative (Negative)
== END 2025-01-21 17:00 | disposition home or self-care (01) ==
LOC: LAB 10:07
PROVIDERS: ATTEND Internal Medicine
DX: I13.0 Hypertensive heart and chronic kidney disease with heart failure and stage 1 through stage 4 chronic kidney disease, or unspecified chronic kidney disease (principal); E11.22 Type 2 diabetes mellitus with diabetic chronic kidney disease; I50.42 Chronic combined systolic (congestive) and diastolic (congestive) heart failure; N18.4 Chronic kidney disease, stage 4 (severe); E11.69 Type 2 diabetes mellitus with other specified complication; D61.818 Other pancytopenia; K74.60 Unspecified cirrhosis of liver; M10.9 Gout, unspecified
CPT/HCPCS: 36415; 80053; 80074; 82607; 82746; 83615; 83735; 83880; 84443; 84550; 85025; 85045; 86038; 86431; 86703

== ENCOUNTER 2025-01-21 10:34 | Inpatient (IN) | payer OTHER, MEDICARE ==
[~2025-01-21] VITALS: Ht 170.2 cm; Wt 77.4 kg
--- NOTE | 2025-01-21 10:58 | ED.PDOC ---
History of present illness HPI Comments 74 year old male with PMHx of a-fib, CAD, CHF, CVA, DM, ESRD, GERD, HLD, HTN, pacemaker, presents to the ED with a chief complaint of hyperglycemia onset today (01/21/25). Patient states he checked BG at home, was over 500 this morning. He came to [facility] to get blood drawn, as he was waiting he began experiencing confusion, described it as "foggy". Patient came to ED, upon ED arrival, BG reading was "high." Denies chest pain, shortness of breath, dizziness, headache, nausea, vomiting, diarrhea, numbness/tingling. No other symptoms or modifying factors present at this time. Chief Complaint: Hyperglycemia Time Seen by MD: 10:50 Primary Care Provider: PATRICIA History of present illness: Nurses Notes, Medications, Allergies Allergies: Coded Allergies: Egg-derived Products (Verified Allergy, Unknown, 08/10/15) Empagliflozin (Verified Adverse Reaction, Unknown, 11/09/24) per patient "legs collapsed 2-3 years ago and was advised by his manager federal not to take it" Home Meds Active Scripts Glipizide (Glipizide) 5 Mg Tab, 1 TAB PO BID for 30 Days, #60 TAB 1 Refill Prov:FRANCIS CARDOZA RESIDENT 11/10/24 Carvedilol (Carvedilol) 12.5 Mg Tab, 1 TAB PO BID for 30 Days, #60 TAB 1 Refill Prov:FRANCIS CARDOZA RESIDENT 11/10/24 Bumetanide (Bumex Tablet) 1 Mg Tab, 1 MG PO DAILY for 30 Days, #30 TAB BLK BX WARNING-CAN LEAD TO PROFOUND DIURESIS WITH FLUID- ELECTROLYTE LOSS Prov:FRANCIS CARDOZA RESIDENT 11/10/24 Reported Medications Pantoprazole Sodium Sesquihydr (Pantoprazole Sodium) 40 Mg Tab, 1 TAB PO DAILY 01/21/25 Spironolactone (Aldactone) 50 Mg Tab, 50 MG PO DAILY 01/21/25 Apixaban Base (ELIQUIS) 2.5 Mg Tab, 1 TAB PO BID 01/21/25 Metolazone (Metolazone) 2.5 Mg Tab, 1 TAB PO DAILY 01/21/25 Isosorbide Mononitrate (Isosorbide Mononitrate Er) 30 Mg Tab, 1 TAB PO DAILY, #30 TAB 5 Refills 11/05/24 Hydralazine Hcl (Hydralazine Hcl) 50 Mg Tab, 1 TAB PO BID, #90 TAB 5 Refills 11/05/24 Potassium Chloride (POTASSIUM CHLORIDE CR) 10 Meq Tb, 1 TAB PO DAILY, #30 TAB 5 Refills 11/05/24 Amlodipine Besylate (NORVASC TABLET) 5 Mg Tb, 1 TAB PO BID, #30 TAB 5 Refills 11/05/24 Discontinued Reported Medications Apixaban Base (ELIQUIS) 5 Mg Tab, 5 MG PO BID, TAB 11/05/24 Information Source: Patient Mode of Arrival: Ambulatory Timing: Hours Duration: Since onset Prehospital treatment: None [place]: Confusion Symptoms: Confusion History of: Diabetes, CVA Modifying factors: Nothing Past Medical History PAST MEDICAL HISTORY: AFIB, CAD, CHF, CVA, DM, ESRD, GERD, High Lipids, HTN Surgical History: Pacemaker Family History Family History: No family hx of Heart graham, No family hx of HTN Social History Smoker: Non-Smoker Alcohol: Denies ETOH Use Drugs: Denies Drug Use Lives In: Home Constitutional: denies: chills, diaphoresis, fatigue, fever, malaise, sweats, weakness, others EENTM: denies: blurred vision, double vision, ear bleeding, ear discharge, ear drainage, ear pain, ear ringing, eye pain, eye redness, hearing loss, mouth pain, mouth swelling, nasal discharge, nose bleeding, nose congestion, nose pain, photophobia, tearing, throat pain, throat swelling, voice changes, others Respiratory: denies: cough, hemoptysis, orthopnea, SOB at rest, shortness of breath, SOB with excertion, stridor, wheezing, others Cardiovascular: denies: chest pain, dizzy spells, diaphoresis, Dyspnea on e xertion, edema, irregular heart beat, left arm pain, lightheadedness, palpitations, PND, syncope, others Gastrointestinal: denies: abdomen distended, abdominal pain, blood streaked bowels, constipated, diarrhea, dysphagia, difficulty swallowing, hematemesis, melena, nausea, poor appetite, poor fluid intake, rectal bleeding, rectal pain, vomiting, others Genitourinary: denies: burning, dysuria, flank pain, frequency, hematuria, incontinence, penile discharge, penile sore, pain, testicle pain, testicle swelling, urgency, others Neurological: reports: others (CONFUSION); denies: dizziness, fainting, headache, left sided numbness, left sided weakness, numbness, paresthesia, pre- existing deficit, right sided numbness, right sided weakness, seizure, speech problems, tingling, tremors, weakness Musculoskeletal: denies: back pain, gout, joint pain, joint swelling, muscle pain, muscle stiffness, neck pain, others Integumetry: denies: bruises, change in color, change in hair/nails, dryness, laceration, lesions, lumps, rash, wounds, others Allergic/Immunocompromised: denies: Difficulty Healing, Frequent Infections, Hives, Itching, others Hematologic/Lymphatic: denies: anemia, blood clots, easy bleeding, easy bruising, swollen glands, others Endocrine: reports: others (hyperglycemia); denies: excessive hunger, excessive sweating, excessive thirst, excessive urination, flushing, intolerance to cold, intolerance to heat, unexplained weight gain, unexplained weight loss Psychiatric: denies: anxiety, bipolar disorder, depression, hopeless, panic disorder, schizophrenia, sleepless, suicidal, others All Other Systems: Reviewed and Negative Physical Exam General Appearance: Moderate Distress HEENT: Pale Conjuntivae (L), Pale Conjuntivae (R), Pharynx Normal, TMs Normal Neck: Full Range of Motion, Non-Tender, Normal, Normal Inspection Respiratory: Chest Non-Tender, Lungs Clear, No Accessory Muscle Use, No Respiratory Distress, Normal Breath Sounds Cardiovascular: No Edema, No JVD, No Murmur, No Gallop, Normal Peripheral Pulses, Regular Rate/Rhythm Breast Exam: Deferred Gastrointestinal: No Organomegaly, Non Tender, No Pulsatile Mass, Normal Bowel Sounds, Soft Genitalia: Deferred Pelvic: Deferred Rectal: Deferred Extremities: No calf tenderness, Normal capillary refill, No pedal edema Musculoskeletal : Apperance: Normal Neurologic: Alert, location and measurement technician II-XII nml as Tested, Motor Weakness, Normal Affect, Normal Mood, No Sensory Deficits Cerebellar Function: Normal Reflexes: Normal Skin: Dry, Pallor, Warm Lymphatic: No Adenopathy Was a procedure done? Was a procedure done?: No Differential Diagnosis (DM) Differential Diagnosis: Dehydration, DKA, Gastritis, Gastroenteritis, UTI X-Ray, Labs, Meds, VS Vital Signs Date Time Temp Pulse Resp B/P (MAP) Pulse Ox O2 Delivery O2 Flow Rate FiO2 01/21/25 12:54 64 19 98 Room Air* 0 21 01/21/25 12:54 97.9 64 19 123/78 (93) 98 97.9 01/21/25 10:41 97.0 69 15 119/68 98 97.0 Lab Test 01/21/25 13:10 01/21/25 11:36 01/21/25 11:18 01/21/25 10:54 Range/Units POC Glucose 485 *H > 600 *H 70-106 mg/dl Blood Gas Specimen Type Arterial Blood Gas Sample Site Right radial Blood Gas Patient Temperature 37.0 Arterial Blood Date Drawn [id number] Arterial Blood pH 7.453 H 7.350-7.450 Arterial Blood Partial Pressure CO2 39.3 35.0-48.0 mmHg Arterial Blood Partial Pressure O2 85.2 83.0-108.0 mmHg Arterial Blood HCO3 26.9 21.0-28.0 mmol/L Arterial Blood Oxygen Saturation 96.2 94.0-98.0 % Arterial Blood Base Excess 2.9 -2.0-3.0 mmol/L Arterial Blood Oxyhemoglobin 93.5 L 94.0-98.0 % Arterial Blood Carboxyhemoglobin 2.1 H 0.5-1.5 % Arterial Blood Methemoglobin 0.7 0.0-1.5 % Arterial Blood Deoxyhemoglobin 3.7 0.0-5.0 % Mahendra Test Yes Blood Gas Total Hemoglobin 16.00 13.5-17.5 g/dL Blood Gas Modality Nasal cannula FiO2 % 21.0 White Blood Count 6.0 4.4-10.8 10^3/uL Red Blood Count 5.60 4.5-5.90 10^6/uL Hemoglobin 16.1 13.5-17.5 g/dL Hematocrit 47.2 41.0-53.0 % Mean Corpuscular Volume 84.4 80.0-100.0 fL Mean Corpuscular Hemoglobin 28.7 28.0-32.0 pg Mean Corpuscular Hemoglobin Concent 34.0 32.0-36.0 g/dL Red Cell Distribution Width 16.9 H 11.8-14.3 % Platelet Count 137 L 140-450 10^3/uL Mean Platelet Volume 9.1 6.9-10.8 fL Neutrophils (%) (Auto) 79.8 37.0-80.0 % Lymphocytes (%) (Auto) 11.5 10.0-50.0 % Monocytes (%) (Auto) 7.4 0.0-12.0 % Eosinophils (%) (Auto) 0.6 0.0-7.0 % Basophils (%) (Auto) 0.7 0.0-2.0 % Neutrophils # (Auto) 4.8 1.6-8.6 10 ^3/uL Lymphocytes # (Auto) 0.7 0.4-5.4 10 ^3/uL Monocytes # (Auto) 0.4 0-1.3 10 ^3/uL Eosinophils # (Auto) 0 0-0.8 10 ^3/uL Basophils # (Auto) 0 0-0.2 10 ^3/uL Nucleated Red Blood Cells 0.2 % Sodium Level 112 *L 136-145 mmol/L Potassium Level 4.0 3.5-5.1 mmol/L Chloride Level 65 L 98-107 mmol/L Carbon Dioxide Level 30 20-31 mmol/L Anion Gap 17 H 5-15 Blood Urea Nitrogen 107 *H 9-23 mg/dL Creatinine 4.15 H 0.700-1.30 mg/dL Glomerular Filtration Rate Calc 14 >90 mL/min BUN/Creatinine Ratio 25.8 H 10.0-20.0 Serum Glucose 694 *H 74-106 mg/dL Calcium Level 10.1 8.7-10.4 mg/dL Ammonia 51 H 11-32 umol/L Beta-Hydroxybutyric Acid 1.201 H < 0.4 mmol/L Current Medications Medications (Trade) Dose Ordered Sig/Mal Route Start Time Stop Time Status Last Admin Sodium Chloride 1,000 ml @ 1,000 mls/hr Q1H ONCE IV 01/21/25 11:00 01/21/25 11:59 DC 01/21/25 11:27 Insulin Human Regular (InsuLIN R) 5 units ONCE ONCE IV 01/21/25 11:00 01/21/25 11:01 DC 01/21/25 11:28 Sodium Chloride 500 ml @ 50 mls/hr ONCE ONCE IV 01/21/25 12:15 01/21/25 22:14 01/21/25 12:42 IMPRESSION: No acute cardiopulmonary disease. The patient's CBC is within normal limits. The chemistry panel shows hypokalemia at 1:12 a.m. The chloride level is 65 The anion gap is elevated at 17 The BUN is 107 and the creatinine is 4.15 A Johnson catheter has been ordered. The CO2 level is within normal range at 30 We did an ABG in the pH is 7.45 This patient does not seem to be in DKA at this time The patient was given insulin as well as normal saline as a bolus The patient is being started on 3% normal saline for the hyponatremia The patient also is being bolused with normal saline A Johnson catheter has been placed. The patient understands and agrees with the management A nephrology consult will be obtained. Images Reviewed?: Images reviewed and evaluated by me Time of 1ST Reevaluation: 11:20 Reevaluation 1ST: Unchanged Patient Education/Counseling: Diagnosis, Treatment, Prognosis Family Education/Counseling: No Family Present SEPSIS Sepsis Screen Date sepsis recognized/suspect: Jan 21, 2025 Time Sepsis recognized/suspect: 1044 Recent Procedure: No On Antibiotic Therapy: No Respiratory Rate >20: No Heart Rate >90: No Temp<36 C (96.8 F) or >38.3 C: No SBP <90 or MAP <65 mmHG: No New Acute Mental Status Change: No Is the patient on CPAP, BIPAP,: No Physician Orders Urinalysis (01/21/25 10:55) Heplock Iv (01/21/25 10:55) Integrated Marketing Specialist (01/21/25 10:55) Blood Pressure (01/21/25 10:55) Pulse Oximetry (01/21/25 10:55) Electrocardigram (01/21/25 10:55) Chest Two Views Routine (01/21/25 10:57) Johnson Catheters (01/21/25 ) Sodium Chl 3% (01/21/25 12:15) Abg W/ Co-Ox (01/21/25 12:14) Vital Signs Date Time Temp Pulse Resp B/P (MAP) Pulse Ox O2 Delivery O2 Flow Rate FiO2 01/21/25 12:54 64 19 98 Room Air* 0 21 01/21/25 12:54 97.9 64 19 123/78 (93) 98 97.9 01/21/25 10:41 97.0 69 15 119/68 98 97.0 Laboratory Tests Test 01/21/25 11:18 White Blood Count 6.0 10^3/uL (4.4-10.8) Medications Medications Dose Ordered Sig/Mal Route Start Time Stop Time Status Last Admin Dose Admin Insulin Human Regular 5 units ONCE ONCE IV 01/21/25 11:00 01/21/25 11:01 DC 01/21/25 11:28 Sodium Chloride 500 ml @ 50 mls/hr ONCE ONCE IV 01/21/25 12:15 01/21/25 22:14 01/21/25 12:42 Sodium Chloride 1,000 ml @ 1,000 mls/hr Q1H ONCE IV 01/21/25 11:00 01/21/25 11:59 DC 01/21/25 11:27 Departure 1 Departure Time of Disposition: 14:01 Impression: Primary Impression: Metabolic encephalopathy Additional Impressions: Hyponatremia Uncontrolled diabetes mellitus Qualified Codes: E13.65 - Other specified diabetes mellitus with hyperglycemia Dehydration Disposition: ADMITTED INPATIENT Admit to: Tele Condition: Fair Critical Care Note Critical Care Time?: Yes (45 min-critical care time only) Stability Stability form required: Yes Unstable for transfer: Telemetry monitoring, ED Physician Assesment (Clinical assesment) Heart Score Heart Score: Heart Score Response (Comments) Value History N/A 0 EKG N/A 0 Age N/A 0 Risk Factors N/A 0 Troponin N/A 0 Total 0 I personally scribed for DILMA REID MD ([email or web address]) on 01/21/25 at 10:58. Electronically submitted by Lolis Hein ([email or web address]). I personally scribed for DILMA REID MD ([email or web address]) on 01/21/25 at 11:10. Electronically submitted by Lolis Hein ([email or web address]). I personally scribed for DILMA REID MD ([email or web address]) on 01/21/25 at 12:12. Electronically submitted by Lolis Hein ([email or web address]). DILMA REID MD Jan 21, 2025 10:58
[2025-01-21] MEDS: SODIUM CHLORIDE 0.9% 1,000 ML IV ONE (11:27)
[2025-01-21] MEDS: InsuLIN REG 1unit/0.01ml Soln (100units/ml) IV ONE (11:28)
[2025-01-21 11:37] LABS: Hematocrit 47.2 % (41.0-53.0); Hemoglobin 16.1 g/dL (13.5-17.5); Mean Corpuscular Hemoglobin 28.7 pg (28.0-32.0); Mean Corpuscular Volume 84.4 fL (80.0-100.0); Nucleated Red Blood Cells % 0.2 %
[2025-01-21 11:40] LABS: Base Excess 2.9 mmol/L (-2.0-3.0)
[2025-01-21 11:43] LABS: Anion Gap 17 (5-15); Carbon Dioxide 30 mmol/L (20-31); Potassium 4.0 mmol/L (3.5-5.1)
[2025-01-21 11:44] LABS: Calcium 10.1 mg/dL (8.7-10.4)
[2025-01-21 11:49] LABS: BUN/Creatinine Ratio 25.8 (10.0-20.0)
[2025-01-21 11:50] LABS: Chloride 65 mmol/L (98-107)
[2025-01-21 11:52] LABS: Blood Urea Nitrogen 107 mg/dL (9-23); Glucose 694 mg/dL (74-106); Sodium 112 mmol/L (136-145)
--- NOTE | 2025-01-21 12:09 | DVH ---
XY CHEST TWO VIEWS ROUTINE CLINICAL HISTORY: weakness COMPARISON: XY CHEST PORTABLE on DOS: 11/05/24, XY CHEST TWO VIEWS ROUTINE on DOS: 10/30/24, XY CHEST TWO VIEWS ROUTINE on DOS: 07/27/23, CXR2 on DOS: 03/31/22, CHEST TWO VIEWS ROUTINE on DOS: 03/31/22 TECHNIQUE: Frontal and lateral view of the chest was obtained FINDINGS: Lines and Tubes: Left-sided pacemaker. Lungs: No focal consolidation. Pleura: No effusion. No pneumothorax. Cardiomediastinal contours: Unremarkable Bones: No acute osseous abnormality. IMPRESSION: No acute cardiopulmonary disease.
[2025-01-21] MEDS: SODIUM CHL 3% 500 ML IV ONE (12:42)
[2025-01-21 12:54] VITALS: PULSE 64; RESP 19; O2SAT 98
[2025-01-21] MEDS ORDERED: DOCUSATE SOD 100 MG CAP PO PRN (13:30)
[2025-01-21] MEDS ORDERED: ACETAMINOPHEN 325 MG TAB PO PRN (13:30)
[2025-01-21] MEDS ORDERED: NITROGLYCERIN 0.4 MG SL TAB SL PRN (13:30)
[2025-01-21] MEDS ORDERED: PANT40T PO (13:32)
[2025-01-21] MEDS ORDERED: METO2.5T PO (13:32)
[2025-01-21] MEDS ORDERED: APIX2.5T PO (13:32)
[2025-01-21] MEDS ORDERED: SPIR50TA2 PO (13:32)
[2025-01-21] MEDS ORDERED: MORPHINE SULFATE 4 MG/ML SYR/VIAL IV PRN (13:45)
[2025-01-21] MEDS ORDERED: DEXTROSE (50%) 50ML SYRG IV PRN (13:45)
[2025-01-21] MEDS: HYDROcodone-ACET 5/325MG TAB PO PRN (13:56)
--- NOTE | 2025-01-21 14:03 | DVHHP2 ---
History of Present Illness Reason for Visit: High blood sugars History of Present Illness Tate Blackburn is a 74-year-old male with past medical history of coronary artery disease, CHF, CVA, diabetes, chronic kidney disease, and GERD, who came to the hospital due to elevated blood sugars and feeling off. He states his primary care provider took him off his diabetic mediations about 2-3 weeks ago. He has noticed his blood sugars increasing over the last couple of weeks. This morning his blood sugar was greater than 500 and he was beginning to feel off, like brain fog. He called his primary care provider who had him come in for labs. Labs showed critical NA and glucose levels, along with other abnormalit ies. He was then instructed to go to the ER. T-bill and ammonia are elevated. Patient had an abdominal ultrasound in October 2024 that showed 6 cm hypoechoic mass, recommended a MRI, unclear if patient has followed up the MRI. Cardiovascular: AFIB, CAD, CHF, Other (Pacemaker) Renal/: Chronic renal insuff Past Surgical History: Other (Pacemaker) Smoke: No ALCOHOL: none Drugs: None Lives: Alone Domestic Violence: Neg Review of Systems Constitutional: Yes: Other (brain fog, elevated blood sugar); No: Fever, Chills, Sweats, Weakness, Malaise Eyes: No: Pain, Vision change, Conjunctivae inflammation, Eyelid inflammation, Other, Redness ENT: No: Ear pain, Ear discharge, Nose pain, Nose discharge, Nose congestion, Mouth pain, Mouth swelling, Throat pain, Throat swelling, Other Respiratory: No: Cough, Dry, Shortness of breath, SOB with excertion, Wheezing, Hemoptysis, Pleuritic Pain, Sputum, Wheezing, Other Cardiovascular: No: Chest Pain, Palpitations, Orthopnea, Paroxysmal Noc. Dyspnea, Edema, Lt Headedness, Other Gastrointestinal: No: Nausea, Vomiting, Abdominal Pain, Diarrhea, Constipation, Melena, Hematochezia, Other Genitourinary: No Dysuria, No Frequency, No Incontinence, No Hematuria, No Retention, No Other Musculoskeletal: No: other, neck pain, shoulder pain, arm pain, back pain, hand pain, leg pain, foot pain Skin: No: Rash, Lesions, Jaundice, Bruising, Other Neurological: No: Weakness, Numbness, Incoordination, Change in speech, Confusion, Seizures, Other Allergies: Coded Allergies: Egg-derived Products (Verified Allergy, Unknown, 08/10/15) Empagliflozin (Verified Adverse Reaction, Unknown, 11/09/24) per patient "legs collapsed 2-3 years ago and 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 not to take it" Medications Current Medications Medications Dose Ordered Sig/Mal Route Start Time Stop Time Status Last Admin Dose Admin Acetaminophen/ Hydrocodone Bitart 1 tab Q4HP PRN PO 01/21/25 13:30 Ondansetron HCl 4 mg Q4HP PRN IV 01/21/25 13:30 Docusate Sodium 100 mg BIDPRN PRN PO 01/21/25 13:30 Acetaminophen 650 mg Q6HP PRN PO 01/21/25 13:30 Nitroglycerin 0.4 mg Q5MINP PRN SL 01/21/25 13:30 Morphine Sulfate 2 mg Q30M PRN IV 01/21/25 13:45 Bumetanide 1 mg DAILY PO 01/22/25 10:00 UNV Carvedilol 12.5 mg BID PO 01/21/25 22:00 UNV Glipizide 5 mg BID PO 01/21/25 22:00 UNV Patient Own Medication 1 tab DAILY PO 01/22/25 10:00 UNV Apixaban 2.5 mg BID PO 01/21/25 22:00 UNV Pantoprazole Sodium 40 mg DAILY PO 01/22/25 10:00 UNV Patient Own Medication 1 tab DAILY PO 01/22/25 10:00 UNV Patient Own Medication 50 mg DAILY PO 01/22/25 10:00 UNV Diagnostic Test (Pha) 1 strip IQ4HR 01/21/25 16:00 UNV Insulin Human Regular IQ4HR SC 01/21/25 16:00 UNV Dextrose 50 ml UD PRN IV 01/21/25 13:45 UNV Exam Vital Signs Vital Signs Date Time Temp Pulse Resp B/P (MAP) Pulse Ox O2 Delivery O2 Flow Rate FiO2 01/21/25 12:54 64 19 98 Room Air* 0 21 01/21/25 12:54 97.9 123/78 (93) 97.9 General Appearance: Alert, Oriented X3, Cooperative, mild distress HEENT: Atraumatic, PERRLA, Other (mucous memebr dry) Cardiovascular: Normal S1, Normal S2, Other (Paced) Abdominal: Normal bowel sounds, Soft, No tenderness, No hepatospenomegaly Extremities: No clubbing, No cyanosis, No edema, Normal pulses, Other (Muscle cramps) Neuro: Normal gait, Normal speech, Strength at 5/5 X4 ext Psych/Mental Status: Mental status NL, Mood NL Labs/Xrays Labs Test 01/21/25 13:10 01/21/25 11:36 01/21/25 11:18 Range/Units POC Glucose 485 *H 70-106 mg/dl Blood Gas Specimen Type Arterial Blood Gas Sample Site Right radial Blood Gas Patient Temperature 37.0 Arterial Blood Date Drawn [id number] Arterial Blood pH 7.453 H 7.350-7.450 Arterial Blood Partial Pressure CO2 39.3 35.0-48.0 mmHg Arterial Blood Partial Pressure O2 85.2 83.0-108.0 mmHg Arterial Blood HCO3 26.9 21.0-28.0 mmol/L Arterial Blood Oxygen Saturation 96.2 94.0-98.0 % Arterial Blood Base Excess 2.9 -2.0-3.0 mmol/L Arterial Blood Oxyhemoglobin 93.5 L 94.0-98.0 % Arterial Blood Carboxyhemoglobin 2.1 H 0.5-1.5 % Arterial Blood Methemoglobin 0.7 0.0-1.5 % Arterial Blood Deoxyhemoglobin 3.7 0.0-5.0 % Mahendra Test Yes Blood Gas Total Hemoglobin 16.00 13.5-17.5 g/dL Blood Gas Modality Nasal cannula FiO2 % 21.0 White Blood Count 6.0 4.4-10.8 10^3/uL Red Blood Count 5.60 4.5-5.90 10^6/uL Hemoglobin 16.1 13.5-17.5 g/dL Hematocrit 47.2 41.0-53.0 % Mean Corpuscular Volume 84.4 80.0-100.0 fL Mean Corpuscular Hemoglobin 28.7 28.0-32.0 pg Mean Corpuscular Hemoglobin Concent 34.0 32.0-36.0 g/dL Red Cell Distribution Width 16.9 H 11.8-14.3 % Platelet Count 137 L 140-450 10^3/uL Mean Platelet Volume 9.1 6.9-10.8 fL Neutrophils (%) (Auto) 79.8 37.0-80.0 % Lymphocytes (%) (Auto) 11.5 10.0-50.0 % Monocytes (%) (Auto) 7.4 0.0-12.0 % Eosinophils (%) (Auto) 0.6 0.0-7.0 % Basophils (%) (Auto) 0.7 0.0-2.0 % Neutrophils # (Auto) 4.8 1.6-8.6 10 ^3/uL Lymphocytes # (Auto) 0.7 0.4-5.4 10 ^3/uL Monocytes # (Auto) 0.4 0-1.3 10 ^3/uL Eosinophils # (Auto) 0 0-0.8 10 ^3/uL Basophils # (Auto) 0 0-0.2 10 ^3/uL Nucleated Red Blood Cells 0.2 % Sodium Level 112 *L 136-145 mmol/L Potassium Level 4.0 3.5-5.1 mmol/L Chloride Level 65 L 98-107 mmol/L Carbon Dioxide Level 30 20-31 mmol/L Anion Gap 17 H 5-15 Blood Urea Nitrogen 107 *H 9-23 mg/dL Creatinine 4.15 H 0.700-1.30 mg/dL Glomerular Filtration Rate Calc 14 >90 mL/min BUN/Creatinine Ratio 25.8 H 10.0-20.0 Serum Glucose 694 *H 74-106 mg/dL Calcium Level 10.1 8.7-10.4 mg/dL Ammonia 51 H 11-32 umol/L Beta-Hydroxybutyric Acid 1.201 H < 0.4 mmol/L XY CHEST TWO VIEWS ROUTINE FINDINGS: Lines and Tubes: Left-sided pacemaker. Lungs: No focal consolidation. Pleura: No effusion. No pneumothorax. Cardiomediastinal contours: Unremarkable Bones: No acute osseous abnormality. IMPRESSION: No acute cardiopulmonary disease. SEPSIS Sepsis Screen Date sepsis recognized/suspect: Jan 21, 2025 Time Sepsis recognized/suspect: 1044 Recent Procedure: No On Antibiotic Therapy: No Respiratory Rate >20: No Heart Rate >90: No Temp<36 C (96.8 F) or >38.3 C: No SBP <90 or MAP <65 mmHG: No New Acute Mental Status Change: No Is the patient on CPAP, BIPAP,: No Physician Orders Urinalysis (01/21/25 10:55) Heplock Iv (01/21/25 10:55) Robotics Systems Engineer (01/21/25 10:55) Blood Pressure (01/21/25 10:55) Pulse Oximetry (01/21/25 10:55) Electrocardigram (01/21/25 10:55) Chest Two Views Routine (01/21/25 10:57) Johnson Catheters (01/21/25 ) Sodium Chl 3% (01/21/25 12:15) Abg W/ Co-Ox (01/21/25 12:14) Admit (01/21/25 13:26) Code Status (01/21/25:) Renal Standard(2gna,3gk,Lopho) (01/21/25 Lunch) Hydrocodone-Acet 5/325mg Tab ([place] 5/32 (01/21/25 13:30) Ondansetron Hcl (Zofran) (01/21/25 13:30) Docusate Sodium Capsule (Colace Capsule) (01/21/25 13:30) Complete Blood Count (01/22/25 04:00) Comprehensive Metabolic Panel (01/22/25 04:00) Condition: Serious (01/21/25 13:) Acetaminophen Tablet (Tylenol Tablet) (01/21/25 13:30) Nitroglycerin Sublingual (Ntrostat Subli (01/21/25 13:30) Stat Ekg For Chest Pain (01/21/25 13:26) Notify Md Of Changes From Base (01/21/25 13:26) Sensitized Paper Tester For 24 Hours (01/21/25 13:26) Emergency Dysrhythmia Protocol (01/21/25:) Rhythm Strips Once Every Shift (01/21/25 13:26) Oxygen By Nasal Cannula (01/21/25 13:26) Sodium Chloride 0.9% (01/21/25 13:30) Bumetanide Tablet (Bumex Tablet) (01/22/25 10:00) Carvedilol Tablet (Coreg Tablet) (01/21/25 22:00) Glipizide Tablet (Glucotrol Tablet) (01/21/25 22:00) (Nf) Isosorbide Mononitrate (Isosorbide (01/22/25 10:00) Apixaban (Eliquis) (01/21/25 22:00) Pantoprazole Tablet (Protonix Tablet) (01/22/25 10:00) (Nf) Metolazone (01/22/25 10:00) (Nf) Spironolactone (Aldactone) (01/22/25 10:00) Morphine Sulfate Injection (01/21/25 13:45) Lactulose Oral (01/21/25 13:45) Comprehensive Metabolic Panel (01/21/25 15:00) Glucose Blood (Accu-Chek Comfort Curve T (01/21/25 16:00) Insulin R (Human) (Insulin R) (01/21/25 16:00) Dextrose 50% Syringe (01/21/25 13:45) Vital Signs Date Time Temp Pulse Resp B/P (MAP) Pulse Ox O2 Delivery O2 Flow Rate FiO2 01/21/25 12:54 64 19 98 Room Air* 0 21 01/21/25 12:54 97.9 64 19 123/78 (93) 98 97.9 01/21/25 10:41 97.0 69 15 119/68 98 97.0 Laboratory Tests Test 01/21/25 11:18 White Blood Count 6.0 10^3/uL (4.4-10.8) Medications Medications Dose Ordered Sig/Mal Route Start Time Stop Time Status Last Admin Dose Admin Insulin Human Regular 5 units ONCE ONCE IV 01/21/25 11:00 01/21/25 11:01 DC 01/21/25 11:28 5 UNITS Sodium Chloride 500 ml @ 50 mls/hr ONCE ONCE IV 01/21/25 12:15 01/21/25 22:14 01/21/25 12:42 50 MLS/HR Sodium Chloride 1,000 ml @ 1,000 mls/hr Q1H ONCE IV 01/21/25 11:00 01/21/25 11:59 DC 01/21/25 11:27 1,000 MLS/HR Assessment/Plan Assessment/Plan Assessment: Hyperglycemia, Hyponatremia, Acute kidney injury, Dehydration, Diabetes, CHF, Liver cirrhosis, Plan: Admit to Tele, Nephrology consult, IV hydration, Accu checks Q 4 hours with sliding scale, Manage/Monitor electrolytes closely, Seizure precautions, Stop 3% NS, start D5/0.45, Consider MRI of liver, Lactulose PO x1, Ammonia level in am, Home medications reconciled, Plan discussed with: Patient My Orders Orders - KALIE PORTILLO [employer] MANAGER Procedure Category Date Status Time Admit ADMIT 01/21/25 Transmitted 13:26 Code Status CODE 01/21/25 Transmitted 13:26 Renal DIET 01/21/25 Transmitted Standard(2gna,3gk,Lopho) Lunch Hydrocodone-Acet PHA 01/21/25 In Process 5/325mg Tab ([place] 13:30 Ondansetron Hcl PHA 01/21/25 In Process (Zofran) 13:30 Docusate Sodium PHA 01/21/25 In Process Capsule (Colace 13:30 Complete Blood Count LAB 01/22/25 Verified 04:00 Comprehensive LAB 01/22/25 Verified Metabolic Panel 04:00 Condition: Serious ADRIAN 01/21/25 In Process 13:26 Acetaminophen Tablet PHA 01/21/25 In Process (Tylenol Tablet) 13:30 Nitroglycerin PHA 01/21/25 In Process Sublingual (Ntrostat 13:30 Stat Ekg For Chest ADRIAN 01/21/25 In Process Pain 13:26 Notify Md Of Changes ADRIAN 01/21/25 In Process From Base 13:26 Sensitized Paper Tester For ADRIAN 01/21/25 In Process 24 Hours 13:26 Emergency Dysrhythmia ADRIAN 01/21/25 In Process Protocol 13:26 Rhythm Strips Once ADRIAN 01/21/25 In Process Every Shift 13:26 Oxygen By Nasal RT 01/21/25 Transmitted Cannula 13:26 Sodium Chloride 0.9% PHA 01/21/25 In Process 13:30 Bumetanide Tablet PHA 01/22/25 Logged (Bumex Tablet) 10:00 Carvedilol Tablet PHA 01/21/25 Logged (Coreg Tablet) 22:00 Glipizide Tablet PHA 01/21/25 Logged (Glucotrol Tablet) 22:00 (Nf) Isosorbide PHA 01/22/25 Logged Mononitrate 10:00 Apixaban (Eliquis) PHA 01/21/25 Logged 22:00 Pantoprazole Tablet PHA 01/22/25 Logged (Protonix Tablet) 10:00 (Nf) Metolazone PHA 01/22/25 Logged 10:00 (Nf) Spironolactone PHA 01/22/25 Logged (Aldactone) 10:00 Morphine Sulfate PHA 01/21/25 In Process Injection 13:45 Lactulose Oral PHA 01/21/25 Logged 13:45 Comprehensive LAB 01/21/25 Logged Metabolic Panel 15:00 Glucose Blood PHA 01/21/25 Logged (Accu-Chek Comfort 16:00 Insulin R (Human) PHA 01/21/25 Logged (Insulin R) 16:00 Dextrose 50% Syringe PHA 01/21/25 Logged 13:45 Date of Service: Jan 21, 2025 Billing Provider: KALIE PORTILLO Common Visit Codes: [id number] INP/OBS CARE (HIGH) KALIE PORTILLO Jan 21, 2025 14:03
[2025-01-21] MEDS: SODIUM CHLORIDE 0.9% 500 ML IV ONE (14:08)
[2025-01-21] MEDS: LACTULOSE 20Gm/30ML SOLN PO ONE (14:15)
[2025-01-21] MEDS: MORPHINE SULFATE 4 MG/ML SYR/VIAL IV ONE (14:15)
[2025-01-21 15:33] LABS: Alanine Aminotransferase 19 U/L (7-40); Albumin 4.3 g/dL (3.2-4.8); Alkaline Phosphatase 77 U/L (46-116); Anion Gap 17 (5-15); BUN/Creatinine Ratio 30.8 (10.0-20.0); Calcium 9.5 mg/dL (8.7-10.4); Carbon Dioxide 28 mmol/L (20-31); Total Protein 7.0 g/dL (5.7-8.2)
[2025-01-21 15:34] LABS: Bilirubin, Total 4.1 mg/dL (0.2-1.0); Chloride 77 mmol/L (98-107); Glucose 217 mg/dL (74-106); Potassium 3.2 mmol/L (3.5-5.1); Sodium 122 mmol/L (136-145)
[2025-01-21 15:36] LABS: Blood Urea Nitrogen 120 mg/dL (9-23)
[2025-01-21] MEDS: ACCU-CHEK COMFORT CURVE STRIP VI SCH (16:24)
[2025-01-21] MEDS: InsuLIN REG 1unit/0.01ml Soln (100units/ml) SC SCH (16:25)
[2025-01-21] MEDS: D5W/SOD CHL 0.45% 1,000 ML IV SCH (16:54)
[2025-01-21] MEDS: ONDANSETRON HCL 4 MG/2 ML VIAL IV PRN (18:11)
[2025-01-21] MEDS: glipiZIDE 5 MG TAB PO SCH (18:18)
[2025-01-21 19:40] VITALS: PULSE 66; RESP 12; O2SAT 95
[2025-01-21] MEDS: APIXABAN 2.5 MG TAB PO SCH (22:19)
[2025-01-21] MEDS: CARVEDILOL 12.5 MG TAB PO SCH (22:19)
[2025-01-21 23:31] LABS: Urine Protein, UAD Negative (Negative)
[2025-01-22] VITALS (7 sets, daily range): BP systolic 131–149; BP diastolic 54–85; PULSE 64–70; RESP 16–18; TEMP 97.6–98; O2SAT 95–100
[2025-01-22 07:01] LABS: Hematocrit 46.8 % (41.0-53.0); Hemoglobin 16.2 g/dL (13.5-17.5); Mean Corpuscular Hemoglobin 28.4 pg (28.0-32.0); Mean Corpuscular Volume 81.8 fL (80.0-100.0); Nucleated Red Blood Cells % 0.0 %
[2025-01-22 07:13] LABS: Alanine Aminotransferase 17 U/L (7-40); Albumin 4.5 g/dL (3.2-4.8); Alkaline Phosphatase 77 U/L (46-116); Anion Gap 15 (5-15); BUN/Creatinine Ratio 31.9 (10.0-20.0); Calcium 10.1 mg/dL (8.7-10.4); Glucose 76 mg/dL (74-106); Total Protein 7.6 g/dL (5.7-8.2)
[2025-01-22 07:37] LABS: Bilirubin, Total 3.6 mg/dL (0.2-1.0); Blood Urea Nitrogen 107 mg/dL (9-23); Carbon Dioxide 34 mmol/L (20-31); Chloride 76 mmol/L (98-107); Potassium 2.8 mmol/L (3.5-5.1); Sodium 125 mmol/L (136-145)
[2025-01-22] MEDS: ISOSORBIDE MONONITRATE ER 60 MG TAB PO SCH (09:46)
[2025-01-22] MEDS: BUMETANIDE 1 MG TAB PO SCH (09:48)
[2025-01-22] MEDS: PANTOPRAZOLE 40 MG TAB PO SCH (09:48)
[2025-01-22] MEDS: SPIRONOLACTONE 25 MG TAB PO SCH (09:48)
--- NOTE | 2025-01-22 13:22 | DVHPN2 ---
Changes from previous H/P or p: No Changes Eyes: No Pain, No Vision change, No Conjunctivae inflammation, No Eyelid inflammation, No Other, No Redness ENT: No Ear pain, No Ear discharge, No Nose pain, No Nose discharge, No Nose congestion, No Mouth pain, No Mouth swelling, No Throat pain, No Throat swelling, No Other Cardiovascular: No Chest Pain, No Palpitations, No Orthopnea, No Paroxysmal Noc. Dyspnea, No Edema, No Lt Headedness, No Other Respiratory: No Cough, No Dry, No Shortness of breath, No SOB with excertion, No Wheezing, No Hemoptysis, No Pleuritic Pain, No Sputum, No Other Gastrointestinal: No Nausea, No Vomiting, No Abdominal Pain, No Diarrhea, No Constipation, No Melena, No Hematochezia, No Other Genitourinary: No Dysuria, No Frequency, No Incontinence, No Hematuria, No Retention, No Other Musculoskeletal: No other, No neck pain, No shoulder pain, No arm pain, No back pain, No hand pain, No leg pain, No foot pain Skin: No Rash, No Lesions, No Jaundice, No Bruising, No Other Objective Vitals Vital Signs Date Time Temp Pulse Resp B/P (MAP) Pulse Ox O2 Delivery O2 Flow Rate FiO2 01/22/25 11:56 97.6 69 18 133/71 (91) 95 97.6 01/22/25 08:00 Room Air* 0 21 Intake/Output Intake and Output 01/22/25 07:00 Intake Total 1625 ml Balance 1625 ml Intake IV Total 1625 ml Medications Current Medications Medications Dose Ordered Sig/Mal Route Start Time Stop Time Status Last Admin Dose Admin Acetaminophen/ Hydrocodone Bitart 1 tab Q4HP PRN PO 01/21/25 13:30 01/21/25 13:56 1 TAB Ondansetron HCl 4 mg Q4HP PRN IV 01/21/25 13:30 01/21/25 18:11 4 MG Docusate Sodium 100 mg BIDPRN PRN PO 01/21/25 13:30 Acetaminophen 650 mg Q6HP PRN PO 01/21/25 13:30 Nitroglycerin 0.4 mg Q5MINP PRN SL 01/21/25 13:30 Morphine Sulfate 2 mg Q30M PRN IV 01/21/25 13:45 Bumetanide 1 mg DAILY PO 01/22/25 10:00 Carvedilol 12.5 mg BID PO 01/21/25 22:00 01/22/25 09:48 12.5 MG Glipizide 5 mg IBID PO 01/21/25 18:00 01/22/25 06:46 5 MG Isosorbide Mononitrate 30 mg DAILY PO 01/22/25 10:00 01/22/25 09:46 30 MG Apixaban 2.5 mg BID PO 01/21/25 22:00 01/22/25 09:48 2.5 MG Pantoprazole Sodium 40 mg DAILY PO 01/22/25 10:00 01/22/25 09:48 40 MG Metolazone 2.5 mg DAILY PO 01/22/25 10:00 01/22/25 09:47 2.5 MG Spironolactone 50 mg DAILY PO 01/22/25 10:00 01/22/25 09:48 50 MG Diagnostic Test (Pha) 1 strip IQ4HR 01/21/25 16:00 01/22/25 11:36 1 STRIP Insulin Human Regular IQ4HR SC 01/21/25 16:00 01/22/25 11:36 6 UNITS Dextrose 50 ml UD PRN IV 01/21/25 13:45 Dextrose/Sodium Chloride 1,000 ml @ 75 mls/hr [id number] IV 01/21/25 16:15 01/21/25 16:54 75 MLS/HR Laboratory Results Laboratory Tests 01/22/25 06:14 Chemistry Test 01/21/25 15:02 01/22/25 06:14 Albumin 4.3 g/dL (3.2-4.8) 4.5 g/dL (3.2-4.8) Calcium Level 9.5 mg/dL (8.7-10.4) 10.1 mg/dL (8.7-10.4) Total Protein 7.0 g/dL (5.7-8.2) 7.6 g/dL (5.7-8.2) LFT Test 01/21/25 15:02 01/22/25 06:14 Alanine Aminotransferase (ALT) 19 U/L (7-40) 17 U/L (7-40) Alkaline Phosphatase 77 U/L (46-116) 77 U/L (46-116) Aspartate Amino Transferase (AST) 28 U/L (13-40) 39 U/L (13-40) Total Bilirubin 4.1 mg/dL (0.2-1.0) H 3.6 mg/dL (0.2-1.0) H Urinalysis Test 01/21/25 23:00 Urine Color Light-yellow (Yellow) Urine Clarity Clear (Clear) Urine pH 5.5 (5.0-9.0) Urine Specific [place] 1.008 (1.001-1.035) Urine Protein Negative (Negative) Urine Ketones Negative (Negative) Urine Blood Negative /uL (Negative) Urine Nitrite Negative (Negative) Urine Bilirubin Negative (Negative) Urine Urobilinogen Normal mg/dL (Negative) Urine Leukocyte Esterase Negative /uL (Negative) Urine RBC None seen /hpf (0 - 3) Urine Microscopic WBC < 1 /HPF (0-3) Urine Squamous Epithelial Cells None seen /hpf (<5) Urine Bacteria None seen /hpf (None Seen) Urine Glucose 3+ mg/dL (Normal) H Labs and/or images reviewed: Labs reviewed by me, Image(s) reviewed by me Assessment/Plan Assessment/Plan # DKA with blood sugars more than 600: Check A1c insulin sliding scale #Acute on chronic heart failure systolic versus diastolic continue home medications # bilateral leg swelling likely due to CHF/DVT # cardiomyopathy # anasarca # CONSTANCE on CKD likely due to cardiorenal syndrome # CKD stage III # hypertension with heart failure # diabetes mellitus type 2 # hyperlipidemia # CAD # atrial fibrillation, on pacemaker # suspected liver mass likely cystic lesion # gallstone # hepatic steatosis # GERD #Pancytopenia likely due suspected underlying liver due # thrombocytopenia under re-evaluate Plan discussed with: Patient Date of Service: Jan 22, 2025 Billing Provider: VENKATESH COONEY MD Common Visit Codes: [id number] CARE 30-74 MIN VENKATESH COONEY MD Jan 22, 2025 13:22
[2025-01-22] MEDS: SODIUM CHLORIDE 0.9% 1,000 ML IV SCH (14:33)
[2025-01-22 19:03] LABS: Anion Gap 12 (5-15)
[2025-01-22 19:04] LABS: Calcium 9.9 mg/dL (8.7-10.4)
[2025-01-22 19:08] LABS: BUN/Creatinine Ratio 36.3 (10.0-20.0)
[2025-01-22 19:19] LABS: Carbon Dioxide 35 mmol/L (20-31); Chloride 74 mmol/L (98-107); Glucose 261 mg/dL (74-106); Potassium 3.2 mmol/L (3.5-5.1); Sodium 121 mmol/L (136-145)
[2025-01-22 19:25] LABS: Blood Urea Nitrogen 113 mg/dL (9-23)
[2025-01-23] VITALS (8 sets, daily range): BP systolic 130–154; BP diastolic 72–99; PULSE 60–80; RESP 16–19; TEMP 97.5–98.5; O2SAT 95–100
[2025-01-23 07:10] LABS: Hematocrit 45.3 % (41.0-53.0); Hemoglobin 15.9 g/dL (13.5-17.5); Mean Corpuscular Hemoglobin 28.7 pg (28.0-32.0); Mean Corpuscular Volume 81.8 fL (80.0-100.0); Nucleated Red Blood Cells % 0.2 %
[2025-01-23 07:18] LABS: Alanine Aminotransferase 19 U/L (7-40); Albumin 4.2 g/dL (3.2-4.8); Alkaline Phosphatase 74 U/L (46-116); Anion Gap 13 (5-15); BUN/Creatinine Ratio 32.9 (10.0-20.0); Calcium 9.5 mg/dL (8.7-10.4); Total Protein 7.0 g/dL (5.7-8.2)
[2025-01-23 07:30] LABS: Carbon Dioxide 33 mmol/L (20-31); Chloride 77 mmol/L (98-107); Glucose 143 mg/dL (74-106); Potassium 2.9 mmol/L (3.5-5.1); Sodium 123 mmol/L (136-145)
[2025-01-23 07:31] LABS: Bilirubin, Total 3.2 mg/dL (0.2-1.0); Blood Urea Nitrogen 96 mg/dL (9-23); Uric Acid 16.3 mg/dL (3.7-9.2)
--- NOTE | 2025-01-23 11:09 | DVHPN2 ---
Reviewed: Care Plan Changes from previous H/P or p: No Changes Eyes: No Pain, No Vision change, No Conjunctivae inflammation, No Eyelid inflammation, No Other, No Redness ENT: No Ear pain, No Ear discharge, No Nose pain, No Nose discharge, No Nose congestion, No Mouth pain, No Mouth swelling, No Throat pain, No Throat swelling, No Other Cardiovascular: No Chest Pain, No Palpitations, No Orthopnea, No Paroxysmal Noc. Dyspnea, No Edema, No Lt Headedness, No Other Respiratory: No Cough, No Dry, No Shortness of breath, No SOB with excertion, No Wheezing, No Hemoptysis, No Pleuritic Pain, No Sputum, No Other Gastrointestinal: No Nausea, No Vomiting, No Abdominal Pain, No Diarrhea, No Constipation, No Melena, No Hematochezia, No Other Genitourinary: No Dysuria, No Frequency, No Incontinence, No Hematuria, No Retention, No Other Musculoskeletal: No other, No neck pain, No shoulder pain, No arm pain, No back pain, No hand pain, No leg pain, No foot pain Skin: No Rash, No Lesions, No Jaundice, No Bruising, No Other Objective Vitals Vital Signs Date Time Temp Pulse Resp B/P (MAP) Pulse Ox O2 Delivery O2 Flow Rate FiO2 01/23/25 10:14 71 131/74 01/23/25 09:00 98.5 16 100 98.5 01/22/25 20:00 Room Air* 0 21 Intake/Output Intake and Output 01/23/25 07:00 Intake Total 2320 ml Output Total 1720 ml Balance 600 ml Intake Oral 1370 ml IV Total 950 ml Output Urine Total 1720 ml Medications Current Medications Medications Dose Ordered Sig/Mal Route Start Time Stop Time Status Last Admin Dose Admin Acetaminophen/ Hydrocodone Bitart 1 tab Q4HP PRN PO 01/21/25 13:30 01/21/25 13:56 1 TAB Ondansetron HCl 4 mg Q4HP PRN IV 01/21/25 13:30 01/21/25 18:11 4 MG Docusate Sodium 100 mg BIDPRN PRN PO 01/21/25 13:30 Acetaminophen 650 mg Q6HP PRN PO 01/21/25 13:30 Nitroglycerin 0.4 mg Q5MINP PRN SL 01/21/25 13:30 Morphine Sulfate 2 mg Q30M PRN IV 01/21/25 13:45 Carvedilol 12.5 mg BID PO 01/21/25 22:00 01/23/25 09:14 12.5 MG Glipizide 5 mg IBID PO 01/21/25 18:00 01/23/25 06:18 5 MG Isosorbide Mononitrate 30 mg DAILY PO 01/22/25 10:00 01/23/25 09:15 30 MG Apixaban 2.5 mg BID PO 01/21/25 22:00 01/23/25 09:14 2.5 MG Pantoprazole Sodium 40 mg DAILY PO 01/22/25 10:00 01/23/25 09:14 40 MG Spironolactone 50 mg DAILY PO 01/22/25 10:00 01/23/25 09:14 50 MG Diagnostic Test (Pha) 1 strip IQ4HR 01/21/25 16:00 01/23/25 07:51 1 STRIP Insulin Human Regular IQ4HR SC 01/21/25 16:00 01/23/25 07:51 6 UNITS Dextrose 50 ml UD PRN IV 01/21/25 13:45 Sodium Chloride 1,000 ml @ 100 mls/hr Q10H IV 01/22/25 13:45 01/23/25 09:13 100 MLS/HR Potassium Chloride 100 ml @ 50 mls/hr Q2H IV 01/23/25 11:00 01/23/25 14:59 UNV Potassium Chloride/Sodium Chloride 1,000 ml @ 100 mls/hr Q10H IV 01/23/25 11:15 UNV Laboratory Results Laboratory Tests 01/23/25 05:29 Chemistry Test 01/22/25 18:27 01/23/25 05:29 Calcium Level 9.9 mg/dL (8.7-10.4) 9.5 mg/dL (8.7-10.4) Albumin 4.2 g/dL (3.2-4.8) Total Protein 7.0 g/dL (5.7-8.2) LFT Test 01/23/25 05:29 Alanine Aminotransferase (ALT) 19 U/L (7-40) Alkaline Phosphatase 74 U/L (46-116) Aspartate Amino Transferase (AST) 45 U/L (13-40) H Total Bilirubin 3.2 mg/dL (0.2-1.0) H Urinalysis Test 01/21/25 23:00 Urine Color Light-yellow (Yellow) Urine Clarity Clear (Clear) Urine pH 5.5 (5.0-9.0) Urine Specific [place] 1.008 (1.001-1.035) Urine Protein Negative (Negative) Urine Ketones Negative (Negative) Urine Blood Negative /uL (Negative) Urine Nitrite Negative (Negative) Urine Bilirubin Negative (Negative) Urine Urobilinogen Normal mg/dL (Negative) Urine Leukocyte Esterase Negative /uL (Negative) Urine RBC None seen /hpf (0 - 3) Urine Microscopic WBC < 1 /HPF (0-3) Urine Squamous Epithelial Cells None seen /hpf (<5) Urine Bacteria None seen /hpf (None Seen) Urine Creatinine 43.93 mg/dL (30.0-125.0) Urine Sodium 70 mmol/L (40-220) Urine Glucose 3+ mg/dL (Normal) H Labs and/or images reviewed: Labs reviewed by me, Image(s) reviewed by me Assessment/Plan Assessment/Plan # DKA with blood sugars more than 600: Check A1c insulin sliding scale #Acute on chronic heart failure systolic versus diastolic continue home medications # bilateral leg swelling likely due to CHF/DVT # cardiomyopathy # anasarca # CONSTANCE on CKD likely due to cardiorenal syndrome # CKD stage III # hypertension with heart failure # diabetes mellitus type 2 # hyperlipidemia # CAD # atrial fibrillation, on pacemaker # suspected liver mass likely cystic lesion # gallstone # hepatic steatosis # GERD #Pancytopenia likely due suspected underlying liver disease # thrombocytopenia Plan discussed with: Patient My Orders Orders - VENKATESH COONEY MD Procedure Category Date Status Time Sodium Chloride 0.9% PHA 01/22/25 In Process 13:45 *Dr. [facility] CONS 01/22/25 Transmitted -[place] 13:34 Complete Blood Count LAB 01/24/25 Verified 05:00 Complete Blood Count LAB 01/25/25 Verified 05:00 Comprehensive LAB 01/24/25 Verified Metabolic Panel 05:00 Comprehensive LAB 01/25/25 Verified Metabolic Panel 05:00 Date of Service: Jan 23, 2025 Billing Provider: VENKATESH COONEY MD Common Visit Codes: [id number] CARE 30-74 MIN VENKATESH COONEY MD Jan 23, 2025 11:09
[2025-01-23 12:52] LABS: Anion Gap 11 (5-15)
[2025-01-23 12:53] LABS: Calcium 10.0 mg/dL (8.7-10.4)
[2025-01-23 12:55] LABS: Carbon Dioxide 34 mmol/L (20-31); Chloride 79 mmol/L (98-107); Potassium 3.1 mmol/L (3.5-5.1); Sodium 124 mmol/L (136-145)
[2025-01-23 12:57] LABS: BUN/Creatinine Ratio 21.5 (10.0-20.0)
[2025-01-23 13:01] LABS: Blood Urea Nitrogen 67 mg/dL (9-23); Glucose 207 mg/dL (74-106)
[2025-01-23] MEDS: POTASSIUM EFFERVESENT TAB 25 MEQ PO ONE (13:02)
[2025-01-23] MEDS: POTASSIUM CHL 20MEQ/100ML 100 ML IV SCH (13:02)
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
[2025-01-23] MEDS: SOD CHL 0.9%/ KCL 40MEQ 1,000 ML IV SCH (16:02)
[2025-01-24] VITALS (8 sets, daily range): BP systolic 123–158; BP diastolic 64–85; PULSE 66–75; RESP 16–18; TEMP 97.6–98.8; O2SAT 98–100
[2025-01-24 06:23] LABS: Hematocrit 46.5 % (41.0-53.0); Hemoglobin 15.7 g/dL (13.5-17.5); Mean Corpuscular Hemoglobin 28.5 pg (28.0-32.0); Mean Corpuscular Volume 84.4 fL (80.0-100.0); Nucleated Red Blood Cells % 0.2 %
[2025-01-24 06:45] LABS: Alanine Aminotransferase 19 U/L (7-40); Albumin 3.9 g/dL (3.2-4.8); Alkaline Phosphatase 69 U/L (46-116); Anion Gap 12 (5-15); BUN/Creatinine Ratio 33.2 (10.0-20.0); Calcium 9.5 mg/dL (8.7-10.4); Carbon Dioxide 30 mmol/L (20-31); Potassium 4.8 mmol/L (3.5-5.1); Total Protein 6.5 g/dL (5.7-8.2)
[2025-01-24 06:49] LABS: Bilirubin, Total 3.2 mg/dL (0.2-1.0); Chloride 87 mmol/L (98-107); Glucose 124 mg/dL (74-106); Sodium 129 mmol/L (136-145)
[2025-01-24 06:50] LABS: Blood Urea Nitrogen 89 mg/dL (9-23)
--- NOTE | 2025-01-24 12:33 | DVHPN2 ---
Reviewed: Care Plan Changes from previous H/P or p: No Changes Eyes: No Pain, No Vision change, No Conjunctivae inflammation, No Eyelid inflammation, No Other, No Redness ENT: No Ear pain, No Ear discharge, No Nose pain, No Nose discharge, No Nose congestion, No Mouth pain, No Mouth swelling, No Throat pain, No Throat swelling, No Other Cardiovascular: No Chest Pain, No Palpitations, No Orthopnea, No Paroxysmal Noc. Dyspnea, No Edema, No Lt Headedness, No Other Respiratory: No Cough, No Dry, No Shortness of breath, No SOB with excertion, No Wheezing, No Hemoptysis, No Pleuritic Pain, No Sputum, No Other Gastrointestinal: No Nausea, No Vomiting, No Abdominal Pain, No Diarrhea, No Constipation, No Melena, No Hematochezia, No Other Genitourinary: No Dysuria, No Frequency, No Incontinence, No Hematuria, No Retention, No Other Musculoskeletal: No other, No neck pain, No shoulder pain, No arm pain, No back pain, No hand pain, No leg pain, No foot pain Skin: No Rash, No Lesions, No Jaundice, No Bruising, No Other Objective Vitals Vital Signs Date Time Temp Pulse Resp B/P (MAP) Pulse Ox O2 Delivery O2 Flow Rate FiO2 01/24/25 09:21 72 143/85 01/24/25 09:00 98.8 16 100 98.8 01/24/25 08:00 Room Air* 0 21 Intake/Output Intake and Output 01/24/25 07:00 Intake Total 2450 ml Output Total 1780 ml Balance 670 ml Intake Oral 850 ml IV Total 1600 ml Output Urine Total 1780 ml # Voids 2 # Bowel Movements 3 Medications Current Medications Medications Dose Ordered Sig/Mal Route Start Time Stop Time Status Last Admin Dose Admin Acetaminophen/ Hydrocodone Bitart 1 tab Q4HP PRN PO 01/21/25 13:30 01/21/25 13:56 1 TAB Ondansetron HCl 4 mg Q4HP PRN IV 01/21/25 13:30 01/21/25 18:11 4 MG Docusate Sodium 100 mg BIDPRN PRN PO 01/21/25 13:30 Acetaminophen 650 mg Q6HP PRN PO 01/21/25 13:30 Nitroglycerin 0.4 mg Q5MINP PRN SL 01/21/25 13:30 Morphine Sulfate 2 mg Q30M PRN IV 01/21/25 13:45 Carvedilol 12.5 mg BID PO 01/21/25 22:00 01/24/25 09:21 12.5 MG Glipizide 5 mg IBID PO 01/21/25 18:00 01/24/25 08:05 5 MG Isosorbide Mononitrate 30 mg DAILY PO 01/22/25 10:00 01/24/25 09:20 30 MG Apixaban 2.5 mg BID PO 01/21/25 22:00 01/24/25 09:21 2.5 MG Pantoprazole Sodium 40 mg DAILY PO 01/22/25 10:00 01/24/25 09:20 40 MG Spironolactone 50 mg DAILY PO 01/22/25 10:00 01/24/25 09:21 50 MG Diagnostic Test (Pha) 1 strip IQ4HR 01/21/25 16:00 01/24/25 12:16 1 STRIP Insulin Human Regular IQ4HR SC 01/21/25 16:00 01/24/25 12:15 3 UNITS Dextrose 50 ml UD PRN IV 01/21/25 13:45 Sodium Chloride 1,000 ml @ 100 mls/hr Q10H IV 01/22/25 13:45 01/24/25 06:03 100 MLS/HR Potassium Chloride/Sodium Chloride 1,000 ml @ 100 mls/hr Q10H IV 01/23/25 11:15 01/23/25 16:02 100 MLS/HR Laboratory Results Laboratory Tests 01/24/25 05:17 Chemistry Test 01/24/25 05:17 Albumin 3.9 g/dL (3.2-4.8) Calcium Level 9.5 mg/dL (8.7-10.4) Total Protein 6.5 g/dL (5.7-8.2) LFT Test 01/24/25 05:17 Alanine Aminotransferase (ALT) 19 U/L (7-40) Alkaline Phosphatase 69 U/L (46-116) Aspartate Amino Transferase (AST) 46 U/L (13-40) H Total Bilirubin 3.2 mg/dL (0.2-1.0) H Urinalysis Test 01/21/25 23:00 Urine Color Light-yellow (Yellow) Urine Clarity Clear (Clear) Urine pH 5.5 (5.0-9.0) Urine Specific [place] 1.008 (1.001-1.035) Urine Protein Negative (Negative) Urine Ketones Negative (Negative) Urine Blood Negative /uL (Negative) Urine Nitrite Negative (Negative) Urine Bilirubin Negative (Negative) Urine Urobilinogen Normal mg/dL (Negative) Urine Leukocyte Esterase Negative /uL (Negative) Urine RBC None seen /hpf (0 - 3) Urine Microscopic WBC < 1 /HPF (0-3) Urine Squamous Epithelial Cells None seen /hpf (<5) Urine Bacteria None seen /hpf (None Seen) Urine Creatinine 43.93 mg/dL (30.0-125.0) Urine Sodium 70 mmol/L (40-220) Urine Glucose 3+ mg/dL (Normal) H Labs and/or images reviewed: Labs reviewed by me, Image(s) reviewed by me Assessment/Plan Assessment/Plan # DKA with blood sugars more than 600: Check A1c insulin sliding scale #Acute on chronic heart failure systolic versus diastolic continue home medications # bilateral leg swelling likely due to CHF/DVT # cardiomyopathy # anasarca # CONSTANCE on CKD likely due to cardiorenal syndrome # CKD stage III # hypertension with heart failure # diabetes mellitus type 2 # hyperlipidemia # CAD # atrial fibrillation, on pacemaker # suspected liver mass likely cystic lesion # gallstone # hepatic steatosis # GERD #Pancytopenia likely due suspected underlying liver disease # thrombocytopenia Time spent 50 minutes Advanced care planning time 20 minutes Patient is full code Plan discussed with: Patient Date of Service: Jan 24, 2025 Billing Provider: VENKATESH COONEY MD Common Visit Codes: [id number] INP/OBS CARE(HIGH) VENKATESH COONEY MD Jan 24, 2025 12:33
--- NOTE | 2025-01-24 13:18 | DVHPN2 ---
Progress Note Date Seen: Jan 24, 2025 Medical Necessity Reason Pt with a Central, PICC or Fol: No Subjective Patient reports: No new complaints Objective vital signs Vital Sign Date Time Temp Pulse Resp B/P (MAP) Pulse Ox O2 Delivery O2 Flow Rate FiO2 01/24/25 09:21 72 143/85 01/24/25 09:00 98.8 16 100 98.8 01/24/25 08:00 Room Air* 0 21 Total Intake and Output 01/23/25 01/23/25 01/24/25 15:00 23:00 07:00 Intake Total 400 ml 550 ml 1500 ml Output Total 700 ml 1080 ml Balance 400 ml -150 ml 420 ml medications Current Medications Medications Dose Ordered Sig/Mal Route Start Time Stop Time Status Last Admin Dose Admin Acetaminophen/ Hydrocodone Bitart 1 tab Q4HP PRN PO 01/21/25 13:30 01/21/25 13:56 1 TAB Ondansetron HCl 4 mg Q4HP PRN IV 01/21/25 13:30 01/21/25 18:11 4 MG Docusate Sodium 100 mg BIDPRN PRN PO 01/21/25 13:30 Acetaminophen 650 mg Q6HP PRN PO 01/21/25 13:30 Nitroglycerin 0.4 mg Q5MINP PRN SL 01/21/25 13:30 Morphine Sulfate 2 mg Q30M PRN IV 01/21/25 13:45 Carvedilol 12.5 mg BID PO 01/21/25 22:00 01/24/25 09:21 12.5 MG Glipizide 5 mg IBID PO 01/21/25 18:00 01/24/25 08:05 5 MG Isosorbide Mononitrate 30 mg DAILY PO 01/22/25 10:00 01/24/25 09:20 30 MG Apixaban 2.5 mg BID PO 01/21/25 22:00 01/24/25 09:21 2.5 MG Pantoprazole Sodium 40 mg DAILY PO 01/22/25 10:00 01/24/25 09:20 40 MG Spironolactone 50 mg DAILY PO 01/22/25 10:00 01/24/25 09:21 50 MG Diagnostic Test (Pha) 1 strip IQ4HR 01/21/25 16:00 01/24/25 12:16 1 STRIP Insulin Human Regular IQ4HR SC 01/21/25 16:00 01/24/25 12:15 3 UNITS Dextrose 50 ml UD PRN IV 01/21/25 13:45 Sodium Chloride 1,000 ml @ 100 mls/hr Q10H IV 01/22/25 13:45 01/24/25 06:03 100 MLS/HR Potassium Chloride/Sodium Chloride 1,000 ml @ 100 mls/hr Q10H IV 01/23/25 11:15 01/23/25 16:02 100 MLS/HR Examination Gen: Appears stated age, NAD Heart: RRR, normal S1 and S2 Lungs: Bilateral air entry, no rales Ext: No edema Neuro: Alert and oriented x 4 laboratory and microbiology Laboratory Tests 01/24/25 05:17 Test 01/24/25 05:17 Range/Units Serum Glucose 124 H 74-106 mg/dL Labs and/or images reviewed: Labs reviewed by me Problem List/Assessment/Plan Problem List/Assessment/Plan IMP Hyponatremia- improving Na 129 Hypokalemia- resolved CONSTANCE on CKD 3 likely hemodynamic mediated DKA Uncontrolled type 2 DM HFrEF AFib on pacemaker REC -BMP in am -Slight improvement in kidney function, downtrend in serum creat noted -June D/C IVF -Strict I&O -Glycemic control -We will continue to follow Case discussed with Dr. Salazar Plan discussed with: Patient Dietary Evaluation Review Comments: Patient presents with uncontrolled diabetes symptoms: dehydration, hyperglycemia, DKA, and irritability. Education: Emphasize importance of diet adherence to maintain general health and prevent further decline in kidney function. Recommendation: Diet: CCHO-60 Renal diet with 50g protein restriction. Monitoring: PO intake and blood glucose trends Renal labs and hydration status Goal: Improve glycemic control and preserve renal function SHAD GARCIA Jan 24, 2025 13:18
[2025-01-25] VITALS (8 sets, daily range): BP systolic 70–137; BP diastolic 74–89; PULSE 57–79; RESP 17–18; TEMP 97–97.9; O2SAT 98–100
[2025-01-25 08:10] LABS: Alanine Aminotransferase 17 U/L (7-40); Albumin 4.0 g/dL (3.2-4.8); Alkaline Phosphatase 62 U/L (46-116); Anion Gap 10 (5-15); BUN/Creatinine Ratio 18.6 (10.0-20.0); Calcium 9.8 mg/dL (8.7-10.4); Carbon Dioxide 30 mmol/L (20-31); Glucose 102 mg/dL (74-106); Hematocrit 45.0 % (41.0-53.0); Hemoglobin 15.4 g/dL (13.5-17.5); Mean Corpuscular Hemoglobin 28.5 pg (28.0-32.0); Mean Corpuscular Volume 83.5 fL (80.0-100.0); Nucleated Red Blood Cells % 0.2 %; Potassium 4.3 mmol/L (3.5-5.1); Total Protein 6.7 g/dL (5.7-8.2)
[2025-01-25 08:11] LABS: Bilirubin, Total 3.1 mg/dL (0.2-1.0); Blood Urea Nitrogen 42 mg/dL (9-23); Chloride 92 mmol/L (98-107); Sodium 132 mmol/L (136-145)
--- NOTE | 2025-01-25 11:41 | DVHPN2 ---
Reviewed: Care Plan Changes from previous H/P or p: No Changes Eyes: No Pain, No Vision change, No Conjunctivae inflammation, No Eyelid inflammation, No Other, No Redness ENT: No Ear pain, No Ear discharge, No Nose pain, No Nose discharge, No Nose congestion, No Mouth pain, No Mouth swelling, No Throat pain, No Throat swelling, No Other Cardiovascular: No Chest Pain, No Palpitations, No Orthopnea, No Paroxysmal Noc. Dyspnea, No Edema, No Lt Headedness, No Other Respiratory: No Cough, No Dry, No Shortness of breath, No SOB with excertion, No Wheezing, No Hemoptysis, No Pleuritic Pain, No Sputum, No Other Gastrointestinal: No Nausea, No Vomiting, No Abdominal Pain, No Diarrhea, No Constipation, No Melena, No Hematochezia, No Other Genitourinary: No Dysuria, No Frequency, No Incontinence, No Hematuria, No Retention, No Other Musculoskeletal: No other, No neck pain, No shoulder pain, No arm pain, No back pain, No hand pain, No leg pain, No foot pain Skin: No Rash, No Lesions, No Jaundice, No Bruising, No Other Objective Vitals Vital Signs Date Time Temp Pulse Resp B/P (MAP) Pulse Ox O2 Delivery O2 Flow Rate FiO2 01/25/25 08:54 97.4 57 18 137/89 (105) 98 97.4 01/25/25 08:00 Room Air* 0 21 Intake/Output Intake and Output 01/25/25 07:00 Intake Total 2125 ml Output Total 1770 ml Balance 355 ml Intake Oral 1175 ml IV Total 950 ml Output Urine Total 1770 ml Medications Current Medications Medications Dose Ordered Sig/Mal Route Start Time Stop Time Status Last Admin Dose Admin Acetaminophen/ Hydrocodone Bitart 1 tab Q4HP PRN PO 01/21/25 13:30 01/21/25 13:56 1 TAB Ondansetron HCl 4 mg Q4HP PRN IV 01/21/25 13:30 01/21/25 18:11 4 MG Docusate Sodium 100 mg BIDPRN PRN PO 01/21/25 13:30 Acetaminophen 650 mg Q6HP PRN PO 01/21/25 13:30 Nitroglycerin 0.4 mg Q5MINP PRN SL 01/21/25 13:30 Morphine Sulfate 2 mg Q30M PRN IV 01/21/25 13:45 Carvedilol 12.5 mg BID PO 01/21/25 22:00 01/24/25 21:24 12.5 MG Glipizide 5 mg IBID PO 01/21/25 18:00 01/25/25 06:24 5 MG Isosorbide Mononitrate 30 mg DAILY PO 01/22/25 10:00 01/25/25 08:34 30 MG Apixaban 2.5 mg BID PO 01/21/25 22:00 01/25/25 08:32 2.5 MG Pantoprazole Sodium 40 mg DAILY PO 01/22/25 10:00 01/25/25 08:32 40 MG Spironolactone 50 mg DAILY PO 01/22/25 10:00 01/25/25 08:31 50 MG Diagnostic Test (Pha) 1 strip IQ4HR 01/21/25 16:00 01/25/25 04:13 1 STRIP Insulin Human Regular IQ4HR SC 01/21/25 16:00 01/24/25 20:18 2 UNITS Dextrose 50 ml UD PRN IV 01/21/25 13:45 Sodium Chloride 1,000 ml @ 100 mls/hr Q10H IV 01/22/25 13:45 01/25/25 01:45 100 MLS/HR Laboratory Results Laboratory Tests 01/25/25 06:58 Chemistry Test 01/25/25 06:58 Albumin 4.0 g/dL (3.2-4.8) Calcium Level 9.8 mg/dL (8.7-10.4) Total Protein 6.7 g/dL (5.7-8.2) LFT Test 01/25/25 06:58 Alanine Aminotransferase (ALT) 17 U/L (7-40) Alkaline Phosphatase 62 U/L (46-116) Aspartate Amino Transferase (AST) 38 U/L (13-40) Total Bilirubin 3.1 mg/dL (0.2-1.0) H Urinalysis Test 01/21/25 23:00 Urine Color Light-yellow (Yellow) Urine Clarity Clear (Clear) Urine pH 5.5 (5.0-9.0) Urine Specific [place] 1.008 (1.001-1.035) Urine Protein Negative (Negative) Urine Ketones Negative (Negative) Urine Blood Negative /uL (Negative) Urine Nitrite Negative (Negative) Urine Bilirubin Negative (Negative) Urine Urobilinogen Normal mg/dL (Negative) Urine Leukocyte Esterase Negative /uL (Negative) Urine RBC None seen /hpf (0 - 3) Urine Microscopic WBC < 1 /HPF (0-3) Urine Squamous Epithelial Cells None seen /hpf (<5) Urine Bacteria None seen /hpf (None Seen) Urine Creatinine 43.93 mg/dL (30.0-125.0) Urine Sodium 70 mmol/L (40-220) Urine Glucose 3+ mg/dL (Normal) H Labs and/or images reviewed: Labs reviewed by me, Image(s) reviewed by me Assessment/Plan Assessment/Plan # DKA with blood sugars more than 600: A1c 11.2 insulin sliding scale #Acute on chronic heart failure systolic versus diastolic continue home medications # bilateral leg swelling likely due to CHF/DVT # cardiomyopathy # anasarca # CONSTANCE on CKD likely due to cardiorenal syndrome # CKD stage III # hypertension with heart failure # uncontrolled diabetes mellitus type 2 A1c 11.2 # hyperlipidemia # CAD # atrial fibrillation, on pacemaker # suspected liver mass likely cystic lesion # gallstone # hepatic steatosis # GERD #Pancytopenia likely due suspected underlying liver disease # thrombocytopenia Time spent 50 minutes Advanced care planning time 20 minutes Patient is full code Plan discussed with: Patient Date of Service: Jan 25, 2025 Billing Provider: VENKATESH COONEY MD Common Visit Codes: [id number] INP/OBS CARE(HIGH) VENKATESH COONEY MD Jan 25, 2025 11:41
--- NOTE | 2025-01-25 12:21 | DVHPN2 ---
Progress Note Date Seen: Jan 25, 2025 Medical Necessity Reason Pt with a Central, PICC or Fol: No Subjective Patient reports: No new complaints Objective vital signs Vital Sign Date Time Temp Pulse Resp B/P (MAP) Pulse Ox O2 Delivery O2 Flow Rate FiO2 01/25/25 08:54 97.4 57 18 137/89 (105) 98 97.4 01/25/25 08:00 Room Air* 0 21 Total Intake and Output 01/24/25 01/24/25 01/25/25 15:00 23:00 07:00 Intake Total 750 ml 800 ml 575 ml Output Total 500 ml 1270 ml Balance 750 ml 300 ml -695 ml medications Current Medications Medications Dose Ordered Sig/Mal Route Start Time Stop Time Status Last Admin Dose Admin Acetaminophen/ Hydrocodone Bitart 1 tab Q4HP PRN PO 01/21/25 13:30 01/21/25 13:56 Ondansetron HCl 4 mg Q4HP PRN IV 01/21/25 13:30 01/21/25 18:11 Docusate Sodium 100 mg BIDPRN PRN PO 01/21/25 13:30 Acetaminophen 650 mg Q6HP PRN PO 01/21/25 13:30 Nitroglycerin 0.4 mg Q5MINP PRN SL 01/21/25 13:30 Morphine Sulfate 2 mg Q30M PRN IV 01/21/25 13:45 Carvedilol 12.5 mg BID PO 01/21/25 22:00 01/24/25 21:24 Glipizide 5 mg IBID PO 01/21/25 18:00 01/25/25 06:24 Isosorbide Mononitrate 30 mg DAILY PO 01/22/25 10:00 01/25/25 08:34 Apixaban 2.5 mg BID PO 01/21/25 22:00 01/25/25 08:32 Pantoprazole Sodium 40 mg DAILY PO 01/22/25 10:00 01/25/25 08:32 Spironolactone 50 mg DAILY PO 01/22/25 10:00 01/25/25 08:31 Diagnostic Test (Pha) 1 strip IQ4HR 01/21/25 16:00 01/25/25 12:08 Insulin Human Regular IQ4HR SC 01/21/25 16:00 01/25/25 12:08 Dextrose 50 ml UD PRN IV 01/21/25 13:45 Sodium Chloride 1,000 ml @ 100 mls/hr Q10H IV 01/22/25 13:45 01/25/25 01:45 Examination Gen: NAD HEENT: PERRLA, mucous membranes moist Heart: RRR, normal S1 and S2 Lungs: Bilateral air entry, no rales Ext: No edema Neuro: alert laboratory and microbiology Laboratory Tests 01/25/25 06:58 Test 01/25/25 06:58 Range/Units Serum Glucose 102 74-106 mg/dL Labs and/or images reviewed: Labs reviewed by me Problem List/Assessment/Plan Problem List/Assessment/Plan IMP Hyponatremia- improving Na 132 Hypokalemia- resolved CONSTANCE on CKD 3 likely hemodynamic mediated DKA Uncontrolled type 2 DM HFrEF AFib on pacemaker REC -Continued improvement in kidney function -Hyponatremia improving Na 132 -BMP in am -June D/C IVF -Strict I&O -Glycemic control -We will continue to follow Case discussed with Dr. Salazar Plan discussed with: Patient Dietary Evaluation Review Comments: Patient presents with uncontrolled diabetes symptoms: dehydration, hyperglycemia, DKA, and irritability. Education: Emphasize importance of diet adherence to maintain general health and prevent further decline in kidney function. Recommendation: Diet: CCHO-60 Renal diet with 50g protein restriction. Monitoring: PO intake and blood glucose trends Renal labs and hydration status Goal: Improve glycemic control and preserve renal function SHAD GARCIA Jan 25, 2025 12:21
[2025-01-26] VITALS (8 sets, daily range): BP systolic 102–161; BP diastolic 55–87; PULSE 67–74; RESP 16–20; TEMP 97.5–97.9; O2SAT 99–100
[2025-01-26 06:47] LABS: Potassium 4.8 mmol/L (3.5-5.1)
[2025-01-26 06:48] LABS: Anion Gap 9 (5-15); Calcium 9.6 mg/dL (8.7-10.4); Carbon Dioxide 31 mmol/L (20-31)
[2025-01-26 06:49] LABS: Chloride 94 mmol/L (98-107); Sodium 134 mmol/L (136-145)
[2025-01-26 06:53] LABS: BUN/Creatinine Ratio 18.3 (10.0-20.0)
[2025-01-26 06:54] LABS: Blood Urea Nitrogen 43 mg/dL (9-23); Glucose 109 mg/dL (74-106)
--- NOTE | 2025-01-26 10:34 | DVHPN2 ---
Progress Note Date Seen: Jan 26, 2025 Medical Necessity Reason Pt with a Central, PICC or Fol: No Objective vital signs Vital Sign Date Time Temp Pulse Resp B/P (MAP) Pulse Ox O2 Delivery O2 Flow Rate FiO2 01/26/25 09:37 137/68 01/26/25 09:37 68 01/26/25 09:00 97.6 20 99 97.6 01/25/25 20:00 Room Air* 0 21 Total Intake and Output 01/25/25 01/25/25 01/26/25 15:00 23:00 07:00 Intake Total 780 ml 280 ml 350 ml Output Total 500 ml 700 ml Balance 780 ml -220 ml -350 ml medications Current Medications Medications Dose Ordered Sig/Mal Route Start Time Stop Time Status Last Admin Dose Admin Acetaminophen/ Hydrocodone Bitart 1 tab Q4HP PRN PO 01/21/25 13:30 01/21/25 13:56 1 TAB Ondansetron HCl 4 mg Q4HP PRN IV 01/21/25 13:30 01/21/25 18:11 4 MG Docusate Sodium 100 mg BIDPRN PRN PO 01/21/25 13:30 Acetaminophen 650 mg Q6HP PRN PO 01/21/25 13:30 Nitroglycerin 0.4 mg Q5MINP PRN SL 01/21/25 13:30 Morphine Sulfate 2 mg Q30M PRN IV 01/21/25 13:45 Carvedilol 12.5 mg BID PO 01/21/25 22:00 01/26/25 09:37 12.5 MG Glipizide 5 mg IBID PO 01/21/25 18:00 01/26/25 08:04 5 MG Isosorbide Mononitrate 30 mg DAILY PO 01/22/25 10:00 01/26/25 09:37 30 MG Apixaban 2.5 mg BID PO 01/21/25 22:00 01/26/25 09:37 2.5 MG Pantoprazole Sodium 40 mg DAILY PO 01/22/25 10:00 01/26/25 09:38 40 MG Spironolactone 50 mg DAILY PO 01/22/25 10:00 01/26/25 09:37 50 MG Diagnostic Test (Pha) 1 strip IQ4HR 01/21/25 16:00 01/26/25 08:05 1 STRIP Insulin Human Regular IQ4HR SC 01/21/25 16:00 01/25/25 20:39 2 UNITS Dextrose 50 ml UD PRN IV 01/21/25 13:45 Clonidine HCl 0.2 mg Q6HP PRN PO 01/25/25 13:00 01/25/25 14:04 0.2 MG Examination: CVS:Abnormal laboratory and microbiology Laboratory Tests 01/26/25 06:01 01/25/25 06:58 Test 01/26/25 06:01 Range/Units Serum Glucose 109 H 74-106 mg/dL Problem List/Assessment/Plan Problem List/Assessment/Plan Acute kidney injury due to volume depletion from DKA ckd 4 poorly controlled DM2 hyponatremia CHF , endstage cardiomyopathy EF < 20% 6cm liver mass noted 10/2024 glycemic control as per primary team avoid hypotension po as tolerated currently on aldactone rec caution with use Plan discussed with: Patient Dietary Evaluation Review Comments: Patient presents with uncontrolled diabetes symptoms: dehydration, hyperglycemia, DKA, and irritability. Education: Emphasize importance of diet adherence to maintain general health and prevent further decline in kidney function. Recommendation: Diet: CCHO-60 Renal diet with 50g protein restriction. Monitoring: PO intake and blood glucose trends Renal labs and hydration status Goal: Improve glycemic control and preserve renal function KARIME DODSON MD Jan 26, 2025 10:34
--- NOTE | 2025-01-26 13:10 | DVHPN2 ---
Reviewed: Care Plan Changes from previous H/P or p: No Changes Eyes: No Pain, No Vision change, No Conjunctivae inflammation, No Eyelid inflammation, No Other, No Redness ENT: No Ear pain, No Ear discharge, No Nose pain, No Nose discharge, No Nose congestion, No Mouth pain, No Mouth swelling, No Throat pain, No Throat swelling, No Other Cardiovascular: No Chest Pain, No Palpitations, No Orthopnea, No Paroxysmal Noc. Dyspnea, No Edema, No Lt Headedness, No Other Respiratory: No Cough, No Dry, No Shortness of breath, No SOB with excertion, No Wheezing, No Hemoptysis, No Pleuritic Pain, No Sputum, No Other Gastrointestinal: No Nausea, No Vomiting, No Abdominal Pain, No Diarrhea, No Constipation, No Melena, No Hematochezia, No Other Genitourinary: No Dysuria, No Frequency, No Incontinence, No Hematuria, No Retention, No Other Musculoskeletal: No other, No neck pain, No shoulder pain, No arm pain, No back pain, No hand pain, No leg pain, No foot pain Skin: No Rash, No Lesions, No Jaundice, No Bruising, No Other Objective Vitals Vital Signs Date Time Temp Pulse Resp B/P (MAP) Pulse Ox O2 Delivery O2 Flow Rate FiO2 01/26/25 12:35 97.5 70 18 141/87 (105) 99 97.5 01/26/25 08:00 Room Air* 0 21 Intake/Output Intake and Output 01/26/25 07:00 Intake Total 1410 ml Output Total 1200 ml Balance 210 ml Intake Oral 810 ml IV Total 600 ml Output Urine Total 1200 ml # Bowel Movements 1 Medications Current Medications Medications Dose Ordered Sig/Mal Route Start Time Stop Time Status Last Admin Dose Admin Acetaminophen/ Hydrocodone Bitart 1 tab Q4HP PRN PO 01/21/25 13:30 01/21/25 13:56 1 TAB Ondansetron HCl 4 mg Q4HP PRN IV 01/21/25 13:30 01/21/25 18:11 4 MG Docusate Sodium 100 mg BIDPRN PRN PO 01/21/25 13:30 Acetaminophen 650 mg Q6HP PRN PO 01/21/25 13:30 Nitroglycerin 0.4 mg Q5MINP PRN SL 01/21/25 13:30 Morphine Sulfate 2 mg Q30M PRN IV 01/21/25 13:45 Carvedilol 12.5 mg BID PO 01/21/25 22:00 01/26/25 09:37 12.5 MG Glipizide 5 mg IBID PO 01/21/25 18:00 01/26/25 08:04 5 MG Isosorbide Mononitrate 30 mg DAILY PO 01/22/25 10:00 01/26/25 09:37 30 MG Apixaban 2.5 mg BID PO 01/21/25 22:00 01/26/25 09:37 2.5 MG Pantoprazole Sodium 40 mg DAILY PO 01/22/25 10:00 01/26/25 09:38 40 MG Spironolactone 50 mg DAILY PO 01/22/25 10:00 01/26/25 09:37 50 MG Diagnostic Test (Pha) 1 strip IQ4HR 01/21/25 16:00 01/26/25 11:39 1 STRIP Insulin Human Regular IQ4HR SC 01/21/25 16:00 01/26/25 11:38 6 UNITS Dextrose 50 ml UD PRN IV 01/21/25 13:45 Clonidine HCl 0.2 mg Q6HP PRN PO 01/25/25 13:00 01/25/25 14:04 0.2 MG Laboratory Results Laboratory Tests 01/25/25 06:58 01/26/25 06:01 Chemistry Test 01/26/25 06:01 Calcium Level 9.6 mg/dL (8.7-10.4) Urinalysis Test 01/21/25 23:00 Urine Color Light-yellow (Yellow) Urine Clarity Clear (Clear) Urine pH 5.5 (5.0-9.0) Urine Specific [place] 1.008 (1.001-1.035) Urine Protein Negative (Negative) Urine Ketones Negative (Negative) Urine Blood Negative /uL (Negative) Urine Nitrite Negative (Negative) Urine Bilirubin Negative (Negative) Urine Urobilinogen Normal mg/dL (Negative) Urine Leukocyte Esterase Negative /uL (Negative) Urine RBC None seen /hpf (0 - 3) Urine Microscopic WBC < 1 /HPF (0-3) Urine Squamous Epithelial Cells None seen /hpf (<5) Urine Bacteria None seen /hpf (None Seen) Urine Creatinine 43.93 mg/dL (30.0-125.0) Urine Sodium 70 mmol/L (40-220) Urine Glucose 3+ mg/dL (Normal) H Labs and/or images reviewed: Labs reviewed by me, Image(s) reviewed by me Assessment/Plan Assessment/Plan # DKA with blood sugars more than 600: A1c 11.2 insulin sliding scale diabetic education #Acute on chronic heart failure systolic versus diastolic continue home medications # bilateral leg swelling likely due to CHF/DVT # cardiomyopathy ejection fraction less than 20 % # anasarca # CONSTANCE on CKD likely due to cardiorenal syndrome # CKD stage III # hypertension with heart failure # uncontrolled diabetes mellitus type 2 A1c 11.2 # hyperlipidemia # CAD # atrial fibrillation, on pacemaker # suspected liver mass likely cystic lesion # gallstone # hepatic steatosis # GERD #Pancytopenia likely due suspected underlying liver disease # thrombocytopenia Time spent 50 minutes Advanced care planning time 20 minutes Patient is full code Sunday Plan discussed with: Patient Date of Service: Jan 26, 2025 Billing Provider: VENKATESH COONEY MD Common Visit Codes: [id number] INP/OBS CARE(HIGH) VENKATESH COONEY MD Jan 26, 2025 13:10
[2025-01-27 01:00] VITALS: BP 153/61; PULSE 66; RESP 19; TEMP 97.7; O2SAT 100
[2025-01-27 05:00] VITALS: BP 161/75; PULSE 75; RESP 18; TEMP 97.7; O2SAT 99
[2025-01-27 06:06] LABS: Hematocrit 43.9 % (41.0-53.0); Hemoglobin 14.8 g/dL (13.5-17.5); Mean Corpuscular Hemoglobin 28.3 pg (28.0-32.0); Mean Corpuscular Volume 84.1 fL (80.0-100.0); Nucleated Red Blood Cells % 0.3 %
[2025-01-27 06:29] VITALS: BP 150/84; PULSE 70; O2SAT 100
[2025-01-27 06:44] LABS: Anion Gap 10 (5-15); Carbon Dioxide 30 mmol/L (20-31); Potassium 4.3 mmol/L (3.5-5.1)
[2025-01-27 06:45] LABS: Calcium 9.6 mg/dL (8.7-10.4)
[2025-01-27 06:46] LABS: Chloride 93 mmol/L (98-107); Sodium 133 mmol/L (136-145)
[2025-01-27 06:50] LABS: BUN/Creatinine Ratio 15.8 (10.0-20.0)
[2025-01-27 06:54] LABS: Blood Urea Nitrogen 34 mg/dL (9-23); Glucose 138 mg/dL (74-106)
[2025-01-27 08:59] VITALS: BP 142/92; PULSE 66; RESP 19; TEMP 97.9; O2SAT 99
--- NOTE | 2025-01-27 10:11 | DVHPN2 ---
Progress Note Date Seen: Jan 27, 2025 Medical Necessity Reason Pt with a Central, PICC or Fol: No Subjective Changes from previous H/P or p: No Changes Objective vital signs Vital Sign Date Time Temp Pulse Resp B/P (MAP) Pulse Ox O2 Delivery O2 Flow Rate FiO2 01/27/25 09:01 136/63 01/27/25 09:00 72 01/27/25 08:59 97.9 19 99 97.9 01/26/25 20:00 Room Air* 0 21 Total Intake and Output 01/26/25 01/26/25 01/27/25 15:00 23:00 07:00 Intake Total 460 ml 100 ml Output Total 350 ml 1100 ml Balance 110 ml -1000 ml medications Current Medications Medications Dose Ordered Sig/Mal Route Start Time Stop Time Status Last Admin Dose Admin Acetaminophen/ Hydrocodone Bitart 1 tab Q4HP PRN PO 01/21/25 13:30 01/21/25 13:56 1 TAB Ondansetron HCl 4 mg Q4HP PRN IV 01/21/25 13:30 01/21/25 18:11 4 MG Docusate Sodium 100 mg BIDPRN PRN PO 01/21/25 13:30 Acetaminophen 650 mg Q6HP PRN PO 01/21/25 13:30 Nitroglycerin 0.4 mg Q5MINP PRN SL 01/21/25 13:30 Morphine Sulfate 2 mg Q30M PRN IV 01/21/25 13:45 Carvedilol 12.5 mg BID PO 01/21/25 22:00 01/27/25 09:00 12.5 MG Glipizide 5 mg IBID PO 01/21/25 18:00 01/27/25 06:24 5 MG Isosorbide Mononitrate 30 mg DAILY PO 01/22/25 10:00 01/27/25 09:01 30 MG Apixaban 2.5 mg BID PO 01/21/25 22:00 01/27/25 08:59 2.5 MG Pantoprazole Sodium 40 mg DAILY PO 01/22/25 10:00 01/27/25 08:59 40 MG Spironolactone 50 mg DAILY PO 01/22/25 10:00 01/27/25 09:00 50 MG Diagnostic Test (Pha) 1 strip IQ4HR 01/21/25 16:00 01/27/25 08:22 1 STRIP Insulin Human Regular IQ4HR SC 01/21/25 16:00 01/27/25 08:59 2 UNITS Dextrose 50 ml UD PRN IV 01/21/25 13:45 Clonidine HCl 0.2 mg Q6HP PRN PO 01/25/25 13:00 01/25/25 14:04 0.2 MG Examination: GENERAL:Abnormal, CVS:Abnormal laboratory and microbiology Laboratory Tests 01/27/25 05:08 Test 01/27/25 05:08 Range/Units Serum Glucose 138 H 74-106 mg/dL Problem List/Assessment/Plan Problem List/Assessment/Plan Acute kidney injury due to volume depletion from DKA ckd 4 poorly controlled DM2 hyponatremia CHF , endstage cardiomyopathy EF < 20% 6cm liver mass noted 10/2024- defer to PCP for w/u BP stable today, cr continues to improve glycemic control as per primary team avoid hypotension po as tolerated currently on aldactone rec caution with use Plan discussed with: Patient Dietary Evaluation Review Comments: Patient presents with uncontrolled diabetes symptoms: dehydration, hyperglycemia, DKA, and irritability. Education: Emphasize importance of diet adherence to maintain general health and prevent further decline in kidney function. Recommendation: Diet: CCHO-60 Renal diet with 50g protein restriction. Monitoring: PO intake and blood glucose trends Renal labs and hydration status Goal: Improve glycemic control and preserve renal function KARIME DODSON MD Jan 27, 2025 10:11
--- NOTE | 2025-01-27 12:05 | DVHPN2 ---
Reviewed: Care Plan Changes from previous H/P or p: No Changes Eyes: No Pain, No Vision change, No Conjunctivae inflammation, No Eyelid inflammation, No Other, No Redness ENT: No Ear pain, No Ear discharge, No Nose pain, No Nose discharge, No Nose congestion, No Mouth pain, No Mouth swelling, No Throat pain, No Throat swelling, No Other Cardiovascular: No Chest Pain, No Palpitations, No Orthopnea, No Paroxysmal Noc. Dyspnea, No Edema, No Lt Headedness, No Other Respiratory: No Cough, No Dry, No Shortness of breath, No SOB with excertion, No Wheezing, No Hemoptysis, No Pleuritic Pain, No Sputum, No Other Gastrointestinal: No Nausea, No Vomiting, No Abdominal Pain, No Diarrhea, No Constipation, No Melena, No Hematochezia, No Other Genitourinary: No Dysuria, No Frequency, No Incontinence, No Hematuria, No Retention, No Other Musculoskeletal: No other, No neck pain, No shoulder pain, No arm pain, No back pain, No hand pain, No leg pain, No foot pain Skin: No Rash, No Lesions, No Jaundice, No Bruising, No Other Objective Vitals Vital Signs Date Time Temp Pulse Resp B/P (MAP) Pulse Ox O2 Delivery O2 Flow Rate FiO2 01/27/25 10:00 61 01/27/25 09:01 136/63 01/27/25 08:59 97.9 19 99 97.9 01/27/25 08:00 Room Air* 0 21 Intake/Output Intake and Output 01/27/25 07:00 Intake Total 560 ml Output Total 1450 ml Balance -890 ml Intake Oral 560 ml Output Urine Total 1450 ml # Bowel Movements 1 Medications Current Medications Medications Dose Ordered Sig/Mal Route Start Time Stop Time Status Last Admin Dose Admin Acetaminophen/ Hydrocodone Bitart 1 tab Q4HP PRN PO 01/21/25 13:30 01/21/25 13:56 1 TAB Ondansetron HCl 4 mg Q4HP PRN IV 01/21/25 13:30 01/21/25 18:11 4 MG Docusate Sodium 100 mg BIDPRN PRN PO 01/21/25 13:30 Acetaminophen 650 mg Q6HP PRN PO 01/21/25 13:30 Nitroglycerin 0.4 mg Q5MINP PRN SL 01/21/25 13:30 Morphine Sulfate 2 mg Q30M PRN IV 01/21/25 13:45 Carvedilol 12.5 mg BID PO 01/21/25 22:00 01/27/25 09:00 12.5 MG Glipizide 5 mg IBID PO 01/21/25 18:00 01/27/25 06:24 5 MG Isosorbide Mononitrate 30 mg DAILY PO 01/22/25 10:00 01/27/25 09:01 30 MG Apixaban 2.5 mg BID PO 01/21/25 22:00 01/27/25 08:59 2.5 MG Pantoprazole Sodium 40 mg DAILY PO 01/22/25 10:00 01/27/25 08:59 40 MG Spironolactone 50 mg DAILY PO 01/22/25 10:00 01/27/25 09:00 50 MG Diagnostic Test (Pha) 1 strip IQ4HR 01/21/25 16:00 01/27/25 11:38 1 STRIP Insulin Human Regular IQ4HR SC 01/21/25 16:00 01/27/25 11:50 6 UNITS Dextrose 50 ml UD PRN IV 01/21/25 13:45 Clonidine HCl 0.2 mg Q6HP PRN PO 01/25/25 13:00 01/25/25 14:04 0.2 MG Laboratory Results Laboratory Tests 01/27/25 05:08 Chemistry Test 01/27/25 05:08 Calcium Level 9.6 mg/dL (8.7-10.4) Urinalysis Test 01/21/25 23:00 Urine Color Light-yellow (Yellow) Urine Clarity Clear (Clear) Urine pH 5.5 (5.0-9.0) Urine Specific [place] 1.008 (1.001-1.035) Urine Protein Negative (Negative) Urine Ketones Negative (Negative) Urine Blood Negative /uL (Negative) Urine Nitrite Negative (Negative) Urine Bilirubin Negative (Negative) Urine Urobilinogen Normal mg/dL (Negative) Urine Leukocyte Esterase Negative /uL (Negative) Urine RBC None seen /hpf (0 - 3) Urine Microscopic WBC < 1 /HPF (0-3) Urine Squamous Epithelial Cells None seen /hpf (<5) Urine Bacteria None seen /hpf (None Seen) Urine Creatinine 43.93 mg/dL (30.0-125.0) Urine Sodium 70 mmol/L (40-220) Urine Glucose 3+ mg/dL (Normal) H Labs and/or images reviewed: Labs reviewed by me, Image(s) reviewed by me Assessment/Plan Assessment/Plan # DKA with blood sugars more than 600: A1c 11.2 insulin sliding scale diabetic education #Acute on chronic heart failure systolic versus diastolic continue home medications # bilateral leg swelling likely due to CHF/DVT # cardiomyopathy ejection fraction less than 20 % # anasarca # CONSTANCE on CKD likely due to cardiorenal syndrome # CKD stage III # hypertension with heart failure # uncontrolled diabetes mellitus type 2 A1c 11.2 # hyperlipidemia # CAD status post pacemaker # atrial fibrillation, on Eliquis # suspected liver mass likely cystic lesion # gallstone # hepatic steatosis # GERD #Pancytopenia likely due suspected underlying liver disease # thrombocytopenia Time spent 50 minutes Advanced care planning time 20 minutes Patient is full code Will Sunday Plan discussed with: Patient Date of Service: Jan 27, 2025 Billing Provider: VENKATESH COONEY MD Common Visit Codes: [id number] INP/OBS CARE(HIGH) VENKATESH COONEY MD Jan 27, 2025 12:05
--- NOTE | 2025-01-27 12:11 | DVHDS2 ---
Discharge Summary Date of Admission Jan 21, 2025 at 13:26 Date of Discharge: Jan 27, 2025 Admitting Diagnosis Shortness of breath and generalized weakness Wounds: None Labs/Diagnostic Data: Laboratory Results Test 01/27/25 11:32 01/27/25 05:08 01/25/25 06:58 01/23/25 11:46 POC Glucose 228 mg/dl (70-106) White Blood Count 3.8 10^3/uL (4.4-10.8) Red Blood Count 5.22 10^6/uL (4.5-5.90) Hemoglobin 14.8 g/dL (13.5-17.5) Hematocrit 43.9 % (41.0-53.0) Mean Corpuscular Volume 84.1 fL (80.0-100.0) Mean Corpuscular Hemoglobin 28.3 pg (28.0-32.0) Mean Corpuscular Hemoglobin Concent 33.7 g/dL (32.0-36.0) Red Cell Distribution Width 18.3 % (11.8-14.3) Platelet Count 120 10^3/uL (140-450) Mean Platelet Volume 8.4 fL (6.9-10.8) Neutrophils (%) (Auto) 64.8 % (37.0-80.0) Lymphocytes (%) (Auto) 21.7 % (10.0-50.0) Monocytes (%) (Auto) 9.2 % (0.0-12.0) Eosinophils (%) (Auto) 3.3 % (0.0-7.0) Basophils (%) (Auto) 1.0 % (0.0-2.0) Neutrophils # (Auto) 2.5 10 ^3/uL (1.6-8.6) Lymphocytes # (Auto) 0.8 10 ^3/uL (0.4-5.4) Monocytes # (Auto) 0.4 10 ^3/uL (0-1.3) Eosinophils # (Auto) 0.1 10 ^3/uL (0-0.8) Basophils # (Auto) 0 10 ^3/uL (0-0.2) Nucleated Red Blood Cells 0.3 % Sodium Level 133 mmol/L (136-145) Potassium Level 4.3 mmol/L (3.5-5.1) Chloride Level 93 mmol/L (98-107) Carbon Dioxide Level 30 mmol/L (20-31) Anion Gap 10 (5-15) Blood Urea Nitrogen 34 mg/dL (9-23) Creatinine 2.15 mg/dL (0.700-1.30) Glomerular Filtration Rate Calc 32 mL/min (>90) BUN/Creatinine Ratio 15.8 (10.0-20.0) Serum Glucose 138 mg/dL (74-106) Calcium Level 9.6 mg/dL (8.7-10.4) Total Bilirubin 3.1 mg/dL (0.2-1.0) Aspartate Amino Transferase (AST) 38 U/L (13-40) Alanine Aminotransferase (ALT) 17 U/L (7-40) Alkaline Phosphatase 62 U/L (46-116) Total Protein 6.7 g/dL (5.7-8.2) Albumin 4.0 g/dL (3.2-4.8) Serum Osmolality 300 mOsm/kg (278-298) Test 01/23/25 05:29 01/22/25 06:19 01/22/25 06:14 01/21/25 23:00 Uric Acid 16.3 mg/dL (3.7-9.2) B-Type Natriuretic Peptide 341.24 pg/mL (0-100) Ammonia 11 umol/L (11-32) Hemoglobin A1c 11.2 % A1C (<5.7) Urine Color Light-yellow (Yellow) Urine Clarity Clear (Clear) Urine pH 5.5 (5.0-9.0) Urine Specific [place] 1.008 (1.001-1.035) Urine Protein Negative (Negative) Urine Ketones Negative (Negative) Urine Blood Negative /uL (Negative) Urine Nitrite Negative (Negative) Urine Bilirubin Negative (Negative) Urine Urobilinogen Normal mg/dL (Negative) Urine Leukocyte Esterase Negative /uL (Negative) Urine RBC None seen /hpf (0 - 3) Urine Microscopic WBC < 1 /HPF (0-3) Urine Squamous Epithelial Cells None seen /hpf (<5) Urine Bacteria None seen /hpf (None Seen) Urine Creatinine 43.93 mg/dL (30.0-125.0) Urine Sodium 70 mmol/L (40-220) Urine Glucose 3+ mg/dL (Normal) Test 01/21/25 11:36 01/21/25 11:18 Blood Gas Specimen Type Arterial Blood Gas Sample Site Right radial Blood Gas Patient Temperature 37.0 Arterial Blood Date Drawn [id number] Arterial Blood pH 7.453 (7.350-7.450) Arterial Blood Partial Pressure CO2 39.3 mmHg (35.0-48.0) Arterial Blood Partial Pressure O2 85.2 mmHg (83.0-108.0) Arterial Blood HCO3 26.9 mmol/L (21.0-28.0) Arterial Blood Oxygen Saturation 96.2 % (94.0-98.0) Arterial Blood Base Excess 2.9 mmol/L (-2.0-3.0) Arterial Blood Oxyhemoglobin 93.5 % (94.0-98.0) Arterial Blood Carboxyhemoglobin 2.1 % (0.5-1.5) Arterial Blood Methemoglobin 0.7 % (0.0-1.5) Arterial Blood Deoxyhemoglobin 3.7 % (0.0-5.0) Mahendra Test Yes Blood Gas Total Hemoglobin 16.00 g/dL (13.5-17.5) Blood Gas Modality Nasal cannula FiO2 % 21.0 Beta-Hydroxybutyric Acid 1.201 mmol/L (< 0.4) Other Laboratory Tests 01/27/25 05:08 Brief Hx & Hospital Course: 74-year-old male with a history of diabetes chronic systolic congestive heart failure cardiomyopathy chronic kidney disease hypertension uncontrolled diabetes hyperlipidemia coronary artery disease status post pacemaker AFib on [facility] liver mass likely cystic lesion gallstones hepatic steatosis GERD chronic pancytopenia came in complaining of generalized weakness and shortness of breaths found to be in DKA with a blood sugars more than 600 uncontrolled diabetes HC A1c 11.2. The patient says he takes glipizide. Seen by photo cartographer Dr. Simpson for acute kidney injury with elevated BUN creatinine which has improved patient has ejection fraction 20 percent secondary to cardiomyopathy. At the time of discharge patient is on room air blood sugars controlled discharged home reviewed all his home medications he will continue all his home medications and follow up with the his primary Dr Dr. Wilmar Salazar and photo cartographer Dr Simpson. General condition stable but poor at the time of discharge secondary to multiple comorbidities and severe cardiomyopathy. Consults/Reason for consult Nephrology Dr. Simpson Operations or Procedures None Condition at Discharge: Fair Final Diagnosis/Problems List # DKA with blood sugars more than 600: A1c 11.2 insulin sliding scale diabetic education #Acute on chronic heart failure systolic versus diastolic continue home medications # bilateral leg swelling likely due to CHF/DVT # cardiomyopathy ejection fraction less than 20 % # anasarca # CONSTANCE on CKD likely due to cardiorenal syndrome # CKD stage III # hypertension with heart failure # uncontrolled diabetes mellitus type 2 A1c 11.2 # hyperlipidemia # CAD status post pacemaker # atrial fibrillation, on Eliquis # suspected liver mass likely cystic lesion # gallstone # hepatic steatosis # GERD #Pancytopenia likely due suspected underlying liver disease # thrombocytopenia Discharge Disposition: Home Discharge Instruct/Medications Diet: Renal Activity: Light activity Follow Up/Referral: Resume all previous home medications Follow up with your primary Dr Dr. Wilmar Salazar in one week Follow up with the Nephrology Dr. Simpson in one week Medications: None Reviewed all home medications Scheduled Amlodipine Besylate (Norvasc Tablet), 1 TAB PO BID, (Reported) Apixaban Base (Eliquis), 1 TAB PO BID, (Reported) Bumetanide (Bumex Tablet), 1 MG PO DAILY Carvedilol (Carvedilol), 1 TAB PO BID Glipizide (Glipizide), 1 TAB PO BID Hydralazine Hcl (Hydralazine Hcl), 1 TAB PO BID, (Reported) Isosorbide Mononitrate (Isosorbide Mononitrate Er), 1 TAB PO DAILY, (Reported) Metolazone (Metolazone), 1 TAB PO DAILY, (Reported) Pantoprazole Sodium Sesquihydr (Pantoprazole Sodium), 1 TAB PO DAILY, (Reported) Potassium Chloride (Potassium Chloride Cr), 1 TAB PO DAILY, (Reported) Spironolactone (Aldactone), 50 MG PO DAILY, (Reported) Discontinued Medications Apixaban Base (Eliquis), 5 MG PO BID, (Reported) 39 (Time taken for discharge summary 39 minutes) Discharge Statement: "Patient was advised to return to the ER or call 911 if any headaches, dizziness, shortness of breath, chest pain, abdominal pain, bleeding, fevers, or worsening of medical condition. Patient was counseled about treatment plan, medications, possible side effects, patientverbalized understanding. All questions were answered to the best of my ability. This discharge took greater then 30 minutes in planning, reviewing documentation, counseling the patient, and discussing with other team members." ASSESSMENT ASSESSMENT Hospital Course Marginally improved Assessment # DKA with blood sugars more than 600: A1c 11.2 insulin sliding scale diabetic education #Acute on chronic heart failure systolic versus diastolic continue home medications # bilateral leg swelling likely due to CHF/DVT # cardiomyopathy ejection fraction less than 20 % # anasarca # CONSTANCE on CKD likely due to cardiorenal syndrome # CKD stage III # hypertension with heart failure # uncontrolled diabetes mellitus type 2 A1c 11.2 # hyperlipidemia # CAD status post pacemaker # atrial fibrillation, on Eliquis # suspected liver mass likely cystic lesion # gallstone # hepatic steatosis # GERD #Pancytopenia likely due suspected underlying liver disease # thrombocytopenia Date of Service: Jan 27, 2025 Billing Provider: VENKATESH COONEY MD Common Visit Codes: [id number] DISCH DAY >30min VENKATESH COONEY MD Jan 27, 2025 12:11
[2025-01-27 12:47] VITALS: BP 141/79; PULSE 70; RESP 18; TEMP 98.4; O2SAT 99
== END 2025-01-27 15:45 | disposition home or self-care (01) | DRG 637 ==
LOC: ER 10:34 → OVERFLOW 13:26 → TELE-WESTW 01-22 02:45
PROVIDERS: ADMIT Family Medicine; ATTEND Family Medicine
DX: E11.10 Type 2 diabetes mellitus with ketoacidosis without coma (principal); I50.43 Acute on chronic combined systolic (congestive) and diastolic (congestive) heart failure; I13.2 Hypertensive heart and chronic kidney disease with heart failure and with stage 5 chronic kidney disease, or end stage renal disease; D61.818 Other pancytopenia; D69.6 Thrombocytopenia, unspecified; I42.9 Cardiomyopathy, unspecified; E87.1 Hypo-osmolality and hyponatremia; E86.0 Dehydration; I48.91 Unspecified atrial fibrillation; N17.9 Acute kidney failure, unspecified; Z79.01 Long term (current) use of anticoagulants; K74.60 Unspecified cirrhosis of liver; E11.22 Type 2 diabetes mellitus with diabetic chronic kidney disease; I13.0 Hypertensive heart and chronic kidney disease with heart failure and stage 1 through stage 4 chronic kidney disease, or unspecified chronic kidney disease; K21.9 Gastro-esophageal reflux disease without esophagitis; K76.0 Fatty (change of) liver, not elsewhere classified; I25.10 Atherosclerotic heart disease of native coronary artery without angina pectoris; E87.6 Hypokalemia; K80.20 Calculus of gallbladder without cholecystitis without obstruction; N18.30 Chronic kidney disease, stage 3 unspecified; E78.5 Hyperlipidemia, unspecified; K76.9 Liver disease, unspecified; Z91.0120 Allergy to eggs, unspecified; Z86.73 Personal history of transient ischemic attack (TIA), and cerebral infarction without residual deficits; Z83.3 Family history of diabetes mellitus; Z82.49 Family history of ischemic heart disease and other diseases of the circulatory system; Z95.0 Presence of cardiac pacemaker; Z79.899 Other long term (current) drug therapy
CPT/HCPCS: 36415; 36600; 71046; 80048; 80053; 81001; 82010; 82140; 82570; 82805; 82962; 83036; 83880; 83930; 84300; 84550; 85025; 97163; 99291; G0378; J1815; J2405; J3480